=== PATIENT | female | born 1965 | race Caucasian/White ===

== ENCOUNTER → 2016-06-08 | Outpatient (CLI) | payer BC ==
--- NOTE | 2016-06-08 15:25 | BD ---
EXAMINATION TYPE: MG DEXA axial skeleton. DATE OF EXAM: 06/08/2016 7:50 AM COMPARISON: NONE CLINICAL HISTORY: Height: 5 FT 9 IN Weight: 386 FRAX RISK QUESTIONS: Alcohol (3 or more units per day): NO Family History (Parent hip fracture): NO Glucocorticoids (More than 3mos): NO (Ex: prednisone, prednisolone, methylprednisolone, dexamethasone, and hydrocortisone). History of Fracture in Adulthood: NO Secondary Osteoporosis: 1. Type 1 Diabetes: NO 2. Hyperthyroidism: NO 3. Menopause before 45: NO 4. Malnutrition: NO 5. Chronic liver disease: NO Rheumatoid Arthritis: NO Current Tobacco Use: NO RISK FACTORS HISTORY OF: Active: NO Postmenopausal woman: TOTAL HYST AGE 47 MEDICATIONS: Thyroid Medications: YES Which medication: LEVOTHYROXINE How Long: SINCE 1988 Additional Medications: LEVOTHYROXINE , HYZAR, BACLIFEN, NAPROXEN, Additional History: EXAM MEASUREMENTS: Bone mineral densitometry was performed using the Split System. Bone mineral density as measured about the Lumbar spine is: ----- L1-L4(G/cm2): 0.960 T Score Values are as follows: ----- L2: -1.3 ----- L3: -1.6 ----- L4: -2.7 ----- L1-L4: -1.8 Bone mineral density has: Decreased -13.5% since study of: 2013 The biliary L4 should be ordered as it is more than one standard deviation away from the adjacent marysol tebra. Bone mineral density about the R hip (g/cm2): 0.851 Bone mineral density about the L hip (g/cm2): 0.871 T Score values are as follows: -----R Neck: -1.3 -----L Neck: -1.2 -----R Intertrochanter: -0.9 -----L Intertrochanter: -2.1 Bone mineral density has: Decreased -17.1% since study of: 2013 IMPRESSION: Osteopenia (T Score between -1 and -2.5) as noted by T Score values at the There is a slight increased fracture risk and therapy is usually indicated based on age. Re-Screen 1-2 years. BOTH HIPS. NOTE: T-SCORE=SD OF THE YOUNG ADULT MEAN.
== END | disposition home or self-care (01) ==
LOC: RADBDWWP 07:49
PROVIDERS: ATTEND Family Medicine
DX: S23 Dislocation and sprain of joints and ligaments of thorax (principal); S29.011S Strain of muscle and tendon of front wall of thorax, sequela; N95.9 Unspecified menopausal and perimenopausal disorder; M85.851 Other specified disorders of bone density and structure, right thigh
CPT/HCPCS: 77080

== ENCOUNTER → 2016-09-02 | Outpatient (CLI) | payer BC ==
[2016-09-02 15:34] VITALS: BP 165/76; PULSE 91; TEMP 98.2; BMI 52.9
[2016-09-02 16:16] LABS: EKG EKG PERFORMED
[2016-09-02 16:53] LABS: CH 26.9; CHCM 30.7; HCT 41.3 % (34.0-46.0); HGB 12.7 gm/dL (11.4-16.0); Hypochromasia Moderate; MCHC 30.6 g/dL (31.0-37.0); MCV 88.2 fL (80.0-100.0); Mean Platelet Volume 6.6; RBC 4.69 m/uL (3.80-5.40); RDW 14.5 % (11.5-15.5); WBC 10.8 k/uL (3.8-10.6)
[2016-09-02 17:07] LABS: ALT 26 U/L (9-52); AST 18 U/L (14-36); Alkaline Phosphatase 91 U/L (38-126); Anion Gap 12 mmol/L; Blood Urea Nitrogen 32 mg/dL (7-17); Calcium 10.7 mg/dL (8.4-10.2); Carbon Dioxide 27 mmol/L (22-30); Chloride 103 mmol/L (98-107); Cholesterol 195 mg/dL (<200); Glucose 114 mg/dL (74-99); HDL Cholesterol 63 mg/dL (40-60); Iron 55 ug/dL (37-170); Non-African American GFR(MDRD) >60 (>60 ml/min/1.73 sqM); Potassium 5.1 mmol/L (3.5-5.1); Sodium 142 mmol/L (137-145); Total Bilirubin 0.8 mg/dL (0.2-1.3); Total Protein 8.3 g/dL (6.3-8.2); Triglycerides 94 mg/dL (<150)
[2016-09-02 17:16] LABS: % Iron Saturation 14.5 % (20-50); Total Iron Binding Capacity 379 ug/dL (265-497)
[2016-09-02 18:12] LABS: Vitamin B12 363 pg/mL (239-931)
[2016-09-02 18:29] LABS: Hemoglobin A1C 5.6 % (4.2-6.1)
--- NOTE | 2016-10-22 12:18 | P.PN ---
Progress Note - Text DATE OF SERVICE; 09/02/2016 CHIEF COMPLAINT: Initial bariatric assessment. HISTORY OF PRESENT ILLNESS: Michelle Larsen is a 51-year-old female who comes in for evaluation for sleeve gastrectomy. She has tried diet and exercise; however, has had difficulty with overall weight loss. She reports developing hip osteoarthritis secondary to her morbid obesity. Her highest weight is at present of 353 pounds. At her height of 5 feet 8-1/2 inches, her ideal body weight is 163 pounds. She is 190 pounds overweight. Body mass of 52.9. Goal weight is to get down to at least a size 16. She also reports obesity runs in her family. She reports chronic lower back pain including left hip pain as well. She does have friends who have also undergone weight loss procedures. She denies any stomach or esophageal cancer in herself or family. No reports of Crohn's disease or lupus and within her family. She does report allergy to strawberries as her throat gets numb. Denies any diarrhea or active severe heartburn. She denies any diabetes at present. She has been taking thyroid medications since the age of 28. As a result, her metabolism has been disrupted. She does have her gallbladder and denies any fatty food intolerance. She also reports a family history of pulmonary embolism where her mother had PE. Now she presents for further evaluation and management. PAST MEDICAL HISTORY. 1. Morbid obesity. 2. Hypothyroidism. 3. Osteoarthritis of the left hip. 4. Hypertension. 5. Neuropathy. 6. Vitamin D deficiency. 7. Seasonal allergies. PAST SURGICAL HISTORY: 1. Hysterectomy. 2. Tonsillectomy. 3. Sinus surgery. 4. Previous orthopedic procedures. MEDICATIONS: 1. Mirapex. 2. Naproxen. 3. Losartan/hydrochlorothiazide. 4. Synthroid. 5. Neurontin. 6. Vitamin D. 7. Zyrtec. 8. Aspirin. 9. Tylenol. ALLERGIES: AMOXICILLIN, ERYTHROMYCIN. SOCIAL HISTORY: Lifelong nontobacco user. She is . FAMILY HISTORY: Pertinent for a pulmonary embolus including morbid obesity. Also family history of thyroid disorders. REVIEW OF SYSTEMS: CONSTITUTIONAL: [place] body weight of 163 pounds. Present weight of 353 pounds. She is 190 pounds overweight. Body mass of 52.9. HEENT: No troubles with vision, hearing. Denies any dysphagia. ENDOCRINE: History of thyroid disorders. Personal history of diabetes. RESPIRATORY: Denies any pneumonia or dyspnea on exertion. CARDIOVASCULAR: History of hypertension. No reports of change pain, heart attack, palpitations. GASTROINTESTINAL: Denies any diarrhea or constipation. Denies any blood in the stools. MUSCULOSKELETAL: Has diffuse osteoarthritis, which includes the hips and lower back. NEURO: History of occasional neuropathy. HEMATOLOGIC: Denies any personal history of DVTs; however, her mother did have for DVT as well. PHYSICAL EXAM: VITAL SIGNS: 98.2, 91, 16, 155/76, 5 feet 8-1/2, 353 pounds. Body mass index of 52.9. GENERAL: Well-developed female in no acute distress. HEENT: No scleral icterus. Extraocular movements grossly intact. Moist mucosa. NECK: Supple without lymphadenopathy. CHEST: Nonlabored respirations. Equal bilateral excursions. CARDIOVASCULAR: Regular rate and rhythm. ABDOMEN: Protuberant, soft, nontender, nondistended. MUSCULOSKELETAL: No clubbing, cyanosis, 2+ bilateral pitting edema. NEURO: No focal lateralizing signs. Cranial nerves 2 through 12 grossly intact. PSYCH: Appropriate affect. Alert and oriented to person, place, and time. LABS: White count elevated at 10.8. MCHC low at 30.6. Evidence of moderate hyperchromasia. BUN elevated at 32. Glucose elevated at 114. Hemoglobin A1c of 5.7 within normal limits. Calcium elevated 10.7. Percent iron saturation low at 14.5. Total protein low 8.3. HDL elevated at 113. Total cholesterol normal at 195. HDL elevated at 63. Thyroid-stimulating hormone within normal limits. STUDIES: EKG demonstrates normal sinus rhythm. ASSESSMENT: 1. Morbid obesity due to excess calories. 2. Body mass index of 52.9. 3. Hypothyroidism. 4. Osteoarthritis of the left hip. 5. Osteoarthritis of the lower back. 6. Family history of morbid obesity. 7. Family history of thyroid disorders. 8. History of food allergies. 9. Family history of pulmonary embolism within her mother. 10. Hypertensive heart disease without cardiomyopathy. 11. Seasonal allergies. 12. Dietitian evaluation and counseling. PLAN: 1. She has obtained a bariatric metabolic panel with findings consistent with elevated calcium levels. Recommend repeat. 2. She also had mild leukocytosis of unclear etiology, which I also recommend further work-up. 3. She has completed an EKG without any moderate abnormalities. 4. Psych assessment per insurance guidelines. 5. Medical risk assessment per insurance guidelines. 6. Recommend prototype sewer evaluation and counseling including with food diary journal and follow up with the bariatric dietitian regarding gastrectomy-type diet. 7. As she is seeking particularly sleeve gastrectomy, risk of gastroesophageal reflux disease was also described in detail. She will proceed with upper endoscopy for further evaluation and management. 8. [place] bariatric surgery collaborative data including benefits and risks of the band, sleeve, Jose-en-Y gastric bypass were described. Discussion, including the balloon and duodenal switch were also discussed. 9. Recommend followup upon completion of her upper endoscopy including labs.
== END | disposition home or self-care (01) ==
LOC: BARWHC3 14:29
PROVIDERS: ATTEND Surgery Plastic and Reconstructive Surgery
DX: Z01.818 Encounter for other preprocedural examination (principal); E66.01 Morbid (severe) obesity due to excess calories; D50.9 Iron deficiency anemia, unspecified; E44.0 Moderate protein-calorie malnutrition; E55.9 Vitamin D deficiency, unspecified; I11.9 Hypertensive heart disease without heart failure; Z68.43 Body mass index [BMI] 50.0-59.9, adult
CPT/HCPCS: 36415; 80053; 80061; 82306; 82607; 82728; 82746; 83036; 83540; 83550; 84425; 84443; 85027; 93005; 99211

== ENCOUNTER 2016-09-11 08:54 | Day surgery (SDC) | payer BC ==
[2016-09-08 11:10] VITALS: BMI 58.2
--- NOTE | 2016-09-11 08:01 | P.GSHP ---
History of Present Illness H&P Date: 09/11/16 CHIEF COMPLAINT: GERD HISTORY OF PRESENT ILLNESS: The patient is a 51-year-old female who presents reports gastroesophageal reflux disease. Upper endoscopy was offered for further evaluation and management. PAST MEDICAL HISTORY: Please see list. PAST SURGICAL HISTORY: Please see list. MEDICATIONS: Please see list. ALLERGIES: Please see list. SOCIAL HISTORY: No illicit drug use FAMILY HISTORY: No reports of Crohn disease or ulcerative colitis. REVIEW OF ORGAN SYSTEMS: CONSTITUTIONAL: No reports of fevers or chills. GI: Denies any blood in stools or constipation. PHYSICAL EXAM: VITAL SIGNS: Stable GENERAL: Well-developed and pleasant in no acute distress. HEENT: No scleral icterus. Extraocular movements grossly intact. Moist buccal mucosa. NECK: Supple without lymphadenopathy. CHEST: Unlabored respirations. Equal bilateral excursions. CARDIOVASCULAR: Regular rate and rhythm. Distal 2+ pulses. ABDOMEN: Soft, nondistended. MUSCULOSKELETAL: No clubbing, cyanosis, or edema. ASSESSMENT: 1. Gastroesophageal reflux disease PLAN: 1. Recommend proceeding with an upper endoscopy Past Medical History Past Medical History: Hypertension, Osteoarthritis (OA), Thyroid Disorder History of Any Multi-Drug Resistant Organisms: None Reported Past Surgical History: Hysterectomy, Orthopedic Surgery, Tonsillectomy Additional Past Surgical History / Comment(s): sinus surgery, Past Anesthesia/Blood Transfusion Reactions: No Reported Reaction Past Psychological History: No Psychological Hx Reported Smoking Status: Never smoker Past Alcohol Use History: None Reported Past Drug Use History: None Reported - Past Family History Mother Family Medical History: No Reported History Medications and Allergies Home Medications Medication Instructions Recorded Confirmed Type Aspirin 81 mg PO DAILY 10/23/14 09/08/16 History Cetirizine HCl [Zyrtec] 10 mg PO DAILY 10/23/14 09/08/16 History Cholecalciferol [Vitamin D3] 2,000 unit PO DAILY@1200 10/23/14 09/08/16 History Levothyroxine Sodium [Synthroid] 137 mcg PO DAILY 10/23/14 09/08/16 History Losartan/Hydrochlorothiazide 100 mg PO DAILY 10/23/14 09/08/16 History [Losartan-Hctz 100-25 mg Tab] Acetaminophen [Tylenol] 1 tab PO BID 09/02/16 09/08/16 History Gabapentin [Neurontin] 1 cap PO HS 09/02/16 09/08/16 History Naproxen 1 tab PO BID 09/02/16 09/08/16 History Pramipexole [Mirapex] 1 tab PO HS 09/02/16 09/08/16 History Allergies Allergy/AdvReac Type Severity Reaction Status Date / Time amoxicillin Allergy Rash/Hives Verified 09/08/16 10:59 erythromycin base Allergy Rash/Hives Verified 09/08/16 10:59
[~2016-09-11 08:54] MED LIST: LACTATED RINGERS 1,000 ML IV SCH
[2016-09-11 09:13] VITALS: RESP 20; TEMP 97.9
[2016-09-11] MEDS ORDERED: LIDOCAINE 1% 20 ML VIAL (10MG/ML) FOR IV START INTRADERMA ONE (09:13)
[2016-09-11] MEDS ORDERED: LIDOCAINE 1% INJ 10MG/ML (20 ML MDV) ONE (09:23)
[2016-09-11] MEDS ORDERED: PROPOFOL 10 MG/ML 20 ML VIAL IV ONE (09:23)
--- NOTE | 2016-09-11 09:36 | P.PCN ---
Date of Procedure: 09/11/16 Preoperative Diagnosis: Postoperative Diagnosis: Procedure(s) Performed: Implants: Indications for Procedure: Operative Findings: Description of Procedure: PREOPERATIVE DIAGNOSIS: Gastroesophageal reflux disease. Morbid obesity. POSTOPERATIVE DIAGNOSIS: Morbid obesity. Gastritis. Gastroesophageal reflux disease. Diaphragmatic hiatal hernia without obstruction. Bile reflux. OPERATION: Esophagogastroduodenoscopy with biopsies along antrum. SURGEON: Stephany Ornelas MD ANESTHESIA: MAC. INDICATIONS: The patient is a 51-year-old female who presents with a history of reflux disease. Benefits and risks of the procedure were described. Informed consent was obtained. DESCRIPTION: The patient was brought into the endoscopy suite and laid in the left lateral decubitus position. An Olympus gastroscope was passed along the posterior oropharynx down to the distal esophagus where the squamocolumnar junction was encountered at 36 cm from the incisors. The stomach was entered and moderate bile reflux was found. Additional findings are listed below. Biopsies with cold forceps were obtained of the antrum. The first through third portion of the duodenum was examined and unremarkable. Retroflexion of the scope confirmed Hill grade 4 lower esophageal valve. The squamocolumnar junction demostrated chronic LA grade B erosive esophagitis. The stomach was desufflated. The patient tolerated the procedure well. FINDINGS: Squamocolumnar junction 36 cm from the incisors. Diaphragmatic hiatus at 38 cm. Hiatal hernia 2 cm, sliding type Hill grade 4 lower esophageal valve. LA grade A erosive esophagitis. No active duodenitis. Gastritis, superficial acute. RECOMMENDATIONS: Further recommendations pending results of pathology report. Upper endoscopy as needed. Plan - Discharge Summary Discharge Medication List Aspirin 81 mg PO DAILY 10/23/14 [History] Cetirizine HCl [Zyrtec] 10 mg PO DAILY 10/23/14 [History] Cholecalciferol [Vitamin D3] 2,000 unit PO DAILY@1200 10/23/14 [History] Levothyroxine Sodium [Synthroid] 137 mcg PO DAILY 10/23/14 [History] Losartan/Hydrochlorothiazide [Losartan-Hctz 100-25 mg Tab] 100 mg PO DAILY 10/23 [History] Acetaminophen [Tylenol] 1 tab PO BID 09/02/16 [History] Gabapentin [Neurontin] 1 cap PO HS 09/02/16 [History] Naproxen 1 tab PO BID 09/02/16 [History] Pramipexole [Mirapex] 1 tab PO HS 09/02/16 [History] Follow up Appointment(s)/Referral(s): Stephany Ornelas MD [STAFF PHYSICIAN] - 09/23/16 ([facility]) Patient Instructions/Handouts: Hiatal Hernia (GEN), Gastritis (DC) Discharge Disposition: HOME SELF-CARE
[2016-09-11 10:02] VITALS: BP 128/71; PULSE 76
== END 2016-09-11 10:34 | disposition home or self-care (01) ==
LOC: ORWHC2ENDO 08:54
PROVIDERS: ATTEND Surgery Plastic and Reconstructive Surgery
DX: K29.50 Unspecified chronic gastritis without bleeding (principal); K44.9 Diaphragmatic hernia without obstruction or gangrene; K22.10 Ulcer of esophagus without bleeding; E66.01 Morbid (severe) obesity due to excess calories; Z68.43 Body mass index [BMI] 50.0-59.9, adult; I10 Essential (primary) hypertension; M19.90 Unspecified osteoarthritis, unspecified site; E07.9 Disorder of thyroid, unspecified; Z79.82 Long term (current) use of aspirin; Z79.899 Other long term (current) drug therapy; Z88.1 Allergy status to other antibiotic agents; Z88.0 Allergy status to penicillin
CPT/HCPCS: 88305; 88342; 43239; J2001; J2704

== ENCOUNTER → 2016-09-24 | Outpatient (CLI) | payer BC ==
[2016-09-24 11:53] VITALS: BP 143/77; PULSE 89; RESP 14; TEMP 97.7; BMI 54.2
--- NOTE | 2016-10-24 19:25 | P.PN ---
Progress Note - Text DATE OF SERVICE: 09/24/2016 CHIEF COMPLAINT: Bariatric assessment. HISTORY OF PRESENT ILLNESS: Michelle Larsen is a 51-year-old female who initially presented to the bariatric center 3 weeks ago for sleeve gastrectomy. She has tried diet and exercise; however, has had difficulty with overall weight loss. Her highest weight is at present of 363 pounds. At her height of 5 feet 8-1/2 inches, her ideal body weight is 163 pounds. She is 200 pounds overweight. Body mass of 54.5. She reports chronic lower back pain including left hip pain as well. She completed an upper endoscopy with finding of a hiatal hernia. She also completed her sleep study. Now she presents for further evaluation and management. PAST MEDICAL HISTORY. 1. Morbid obesity. 2. Hypothyroidism. 3. Osteoarthritis of the left hip. 4. Hypertension. 5. Neuropathy. 6. Vitamin D deficiency. 7. Seasonal allergies. 8. Gastroesophageal reflux disease. PAST SURGICAL HISTORY: 1. Hysterectomy. 2. Tonsillectomy. 3. Sinus surgery. 4. Previous orthopedic procedures. 5. Upper endoscopy. MEDICATIONS: 1. Mirapex. 2. Naproxen. 3. Losartan/hydrochlorothiazide. 4. Synthroid. 5. Neurontin. 6. Vitamin D. 7. Zyrtec. 8. Aspirin. 9. Tylenol. ALLERGIES: AMOXICILLIN, ERYTHROMYCIN. SOCIAL HISTORY: Lifelong nontobacco user. She is . FAMILY HISTORY: Pertinent for a pulmonary embolus including morbid obesity. Also family history of thyroid disorders. REVIEW OF SYSTEMS: CONSTITUTIONAL: [place] body weight of 163 pounds. Present weight of 363 pounds. She is 200 pounds overweight. Body mass of 54.5 HEENT: No troubles with vision, hearing. Denies any dysphagia. ENDOCRINE: History of thyroid disorders. Personal history of diabetes. RESPIRATORY: Denies any pneumonia or dyspnea on exertion. CARDIOVASCULAR: History of hypertension. No reports of change pain, heart attack, palpitations. GASTROINTESTINAL: Denies any diarrhea or constipation. Denies any blood in the stools. Has hiatal hernia including gastroesophageal reflux disease. MUSCULOSKELETAL: Has diffuse osteoarthritis, which includes the hips and lower back. NEURO: History of occasional neuropathy. HEMATOLOGIC: Denies any personal history of DVTs; however, her mother did have for DVT as well. PHYSICAL EXAM: VITAL SIGNS: 5 feet 8-1/2, 363 pounds. Body mass index of 54.5. Vital Signs Temp 97.7 F 09/24/16 11:38 Pulse 89 09/24/16 11:38 Resp 14 09/24/16 11:38 BP 143/77 09/24/16 11:38 Pulse Ox GENERAL: Well-developed female in no acute distress. HEENT: No scleral icterus. Extraocular movements grossly intact. Moist mucosa. NECK: Supple without lymphadenopathy. CHEST: Nonlabored respirations. Equal bilateral excursions. CARDIOVASCULAR: Regular rate and rhythm. ABDOMEN: Protuberant, soft, nontender, nondistended. MUSCULOSKELETAL: No clubbing, cyanosis, 2+ bilateral pitting edema. NEURO: No focal lateralizing signs. Cranial nerves 2 through 12 grossly intact. PSYCH: Appropriate affect. Alert and oriented to person, place, and time. LABS: White count elevated at 10.8. MCHC low at 30.6. Evidence of moderate hyperchromasia. BUN elevated at 32. Glucose elevated at 114. Hemoglobin A1c of 5.7 within normal limits. Calcium elevated 10.7. Percent iron saturation low at 14.5. Total protein low 8.3. HDL elevated at 113. Total cholesterol normal at 195. HDL elevated at 63. Thyroid-stimulating hormone within normal limits. STUDIES: EKG demonstrates normal sinus rhythm. Upper endoscopy findings: Hiatal hernia 2 cm, sliding type Hill grade 4 lower esophageal valve. LA grade A erosive esophagitis. ASSESSMENT: 1. Morbid obesity due to excess calories. 2. Body mass index of 54.5. 3. Hypothyroidism. 4. Osteoarthritis of the left hip. 5. Osteoarthritis of the lower back. 6. Family history of morbid obesity. 7. Family history of thyroid disorders. 8. History of food allergies. 9. Family history of pulmonary embolism within her mother. 10. Hypertensive heart disease without cardiomyopathy. 11. Seasonal allergies. 12. Dietitian evaluation and counseling. 13. Hiatal hernia. 14. Gastroesophageal reflux disease. 15. Elevated calcium. PLAN: 1. All of her labs were reviewed in detail including findings of elevated calcium level. 2. Recommend evaluation a PTH level for parathyroid adenoma. 3. With a history of hypertension including abnormal EKG, recommend referral to cardiology. 4. With finding of upper endoscopy with hiatal hernia, may need hiatal hernia at the time of her procedure. 5. Recommend treatment for obstructive sleep apnea. 6. Benefits and risks of surgical intervention for sleeve gastrectomy were described including potential worsening dysphagia or reflux disease. 7. [place] bariatric surgery collaborative data including benefits and risks of the band, sleeve, Jose-en-Y gastric bypass were described. 8. Recommend followup upon completion of her bariatric profile.
== END | disposition home or self-care (01) ==
LOC: BARWHC3 10:34
PROVIDERS: ATTEND Surgery Plastic and Reconstructive Surgery
DX: E21.1 Secondary hyperparathyroidism, not elsewhere classified (principal); I10 Essential (primary) hypertension; R06.83 Snoring; R53.83 Other fatigue; Z72.820 Sleep deprivation
CPT/HCPCS: 36415; 83970; 99211

== ENCOUNTER → 2016-11-04 | Outpatient (CLI) | payer BC ==
[2016-11-04 15:18] VITALS: BP 152/72; PULSE 99; TEMP 98.2
--- NOTE | 2016-12-05 11:09 | P.PN ---
Progress Note - Text DATE OF SERVICE: 11/04/2016 CHIEF COMPLAINT: Bariatric assessment. HISTORY OF PRESENT ILLNESS: Michelle Larsen is a 51-year-old female who initially presented to the bariatric center in August 2016 now 2 months ago. She is looking into a sleeve gastrectomy. In the last 2 months, she has gained an additional 21 pounds. She is still pending a sleep study for sleep apnea. She reports requiring weight loss to undergo orthopedics procedure for severe osteoarthritis. She's ambulating with a cane. Her highest weight is now 384 pounds. At her height of 5 feet 8-1/2 inches, her ideal body weight is 163 pounds. She is 221 pounds overweight. Her body mass index is now elevated to 57.7. She reports chronic lower back pain including left hip pain as well. PAST MEDICAL HISTORY. 1. Morbid obesity. 2. Hypothyroidism. 3. Osteoarthritis of the left hip. 4. Hypertension. 5. Neuropathy. 6. Vitamin D deficiency. 7. Seasonal allergies. 8. Gastroesophageal reflux disease. 9. Obstructive sleep apnea. PAST SURGICAL HISTORY: 1. Hysterectomy. 2. Tonsillectomy. 3. Sinus surgery. 4. Previous orthopedic procedures. 5. Upper endoscopy. 6. Sleep study. MEDICATIONS: 1. Mirapex. 2. Naproxen. 3. Losartan/hydrochlorothiazide. 4. Synthroid. 5. Neurontin. 6. Vitamin D. 7. Zyrtec. 8. Aspirin. 9. Tylenol. ALLERGIES: AMOXICILLIN, ERYTHROMYCIN. SOCIAL HISTORY: Lifelong nontobacco user. She is . FAMILY HISTORY: Pertinent for a pulmonary embolus including morbid obesity. Also family history of thyroid disorders. REVIEW OF SYSTEMS: CONSTITUTIONAL: Her highest weight is now 384 pounds. At her height of 5 feet 8-1/2 inches, her ideal body weight is 163 pounds. She is 221 pounds overweight. Her body mass index is now elevated to 57.7. HEENT: No troubles with vision, hearing. Denies any dysphagia. ENDOCRINE: History of thyroid disorders. Personal history of diabetes. RESPIRATORY: Denies any pneumonia or dyspnea on exertion. CARDIOVASCULAR: History of hypertension. No reports of change pain, heart attack, palpitations. GASTROINTESTINAL: Denies any diarrhea or constipation. Denies any blood in the stools. Has hiatal hernia including gastroesophageal reflux disease. MUSCULOSKELETAL: Has diffuse osteoarthritis, which includes the hips and lower back. NEURO: History of occasional neuropathy. HEMATOLOGIC: Denies any personal history of DVTs; however, her mother did have for DVT as well. SKIN: No reports of active skin rash or active skin cancer. PHYSICAL EXAM: VITAL SIGNS: 5 feet 8-1/2, 384 pounds. Body mass index of 57.7 Vital Signs Temp 98.2 F 11/04/16 15:16 Pulse 99 11/04/16 15:16 Resp BP 152/72 11/04/16 15:16 Pulse Ox GENERAL: Well-developed female in no acute distress. HEENT: No scleral icterus. Extraocular movements grossly intact. Moist mucosa. NECK: Supple without lymphadenopathy. CHEST: Nonlabored respirations. Equal bilateral excursions. CARDIOVASCULAR: Regular rate and rhythm. ABDOMEN: Protuberant, soft, nontender, nondistended. MUSCULOSKELETAL: No clubbing, cyanosis, 2+ bilateral pitting edema. NEURO: No focal lateralizing signs. Cranial nerves 2 through 12 grossly intact. PSYCH: Appropriate affect. Alert and oriented to person, place, and time. SKIN: Well perfused. Good skin turgor. LABS: White count elevated at 10.8. MCHC low at 30.6. Evidence of moderate hyperchromasia. BUN elevated at 32. Glucose elevated at 114. Hemoglobin A1c of 5.7 within normal limits. Calcium elevated 10.7. Percent iron saturation low at 14.5. Total protein low 8.3. HDL elevated at 113. Total cholesterol normal at 195. HDL elevated at 63. Thyroid-stimulating hormone within normal limits. STUDIES: EKG demonstrates normal sinus rhythm. Upper endoscopy findings: Hiatal hernia 2 cm, sliding type Hill grade 4 lower esophageal valve. LA grade A erosive esophagitis. ASSESSMENT: 1. Morbid obesity due to excess calories. 2. Body mass index of 57.7. 3. Hypothyroidism. 4. Osteoarthritis of the left hip. 5. Osteoarthritis of the lower back. 6. Family history of morbid obesity. 7. Family history of thyroid disorders. 8. History of food allergies. 9. Family history of pulmonary embolism within her mother. 10. Hypertensive heart disease without cardiomyopathy. 11. Seasonal allergies. 12. Dietitian evaluation and counseling. 13. Hiatal hernia. 14. Gastroesophageal reflux disease. 15. Elevated calcium. PLAN: 1. Recommend repeat calcium level. 2. She is still pending a sleep study. 3. She is still evaluating for sleeve gastrectomy. Benefits and risks of sleeve gastrectomy including leaks, bleeding, increase gastroesophageal reflux disease were described. Lifelong antacid treatment was also reviewed. 4. Will need at least tonight stay in the hospital. 5. DVT prophylaxis. 6. Antibiotic prophylaxis. 7. An 8 page bariatric second-generation consent form was reviewed in detail including potential for nutritional deficiencies. All questions were addressed and answered.
== END ==
LOC: BARWHC3 13:49
PROVIDERS: ATTEND Surgery Plastic and Reconstructive Surgery
DX: Z48.815 Encounter for surgical aftercare following surgery on the digestive system (principal); E03.9 Hypothyroidism, unspecified; M17.12 Unilateral primary osteoarthritis, left knee; M47.816 Spondylosis without myelopathy or radiculopathy, lumbar region; I10 Essential (primary) hypertension; E55.9 Vitamin D deficiency, unspecified; J30.2 Other seasonal allergic rhinitis; E66.01 Morbid (severe) obesity due to excess calories; Z68.43 Body mass index [BMI] 50.0-59.9, adult; Z98.84 Bariatric surgery status
CPT/HCPCS: 99211

== ENCOUNTER → 2016-11-12 | Outpatient (CLI) | payer BC ==
--- NOTE | 2016-11-12 22:17 | CONS ---
DATE OF CONSULTATION: 11/12/2016 This patient is a 51-year-old lady who has been evaluated in the sleep center for obstructive sleep apnea/hypopnea syndrome as a part of preparation for bariatric surgery. HISTORY OF PRESENT ILLNESS/SLEEP-WAKE EVALUATION: Patient's usual sleep schedule is from 11 p.m. to 7 a.m. on weekdays and from 11 p.m. to 9 a.m. on weekends. No problems with falling asleep. She has a TV set in the bedroom. She snores, wakes up from sleep 5 times with up to 4 episodes of nocturia. She has hip pain during sleep. No significant symptoms of excessive daytime sleepiness. [place] Sleepiness Scale is 2. Positive history of jerking movements of her left hip. PAST MEDICAL HISTORY: 1. Hypertension. 2. Allergies. 3. Hypothyroidism. 4. Back pain. 5. Left hip arthritis. PAST SURGICAL HISTORY: 1. Total hysterectomy. 2. Tonsillectomy. MEDICATIONS: 1. Levothyroxine. 2. Hyzaar. 3. Amlodipine. 4. Zyrtec. 5. Vitamin D. 6. Baclofen. 7. Tylenol. 8. Gabapentin. 9. Pramipexole. SOCIAL HISTORY: Negative for smoking or using alcohol. FAMILY HISTORY: Hypertension, arthritis, cancer, thyroid problems. During physical exam, 51-year-old lady without distress. BP 165/86, HR 106, RR 16. Height 5 feet 9 inches. Weight 380.4. BMI 51.6. Neck 16 inches in circumference. Temperature 97.9. Oxygen saturation at room air 97%. GENERAL: A pleasant patient without distress. HEENT: PERRLA. EOMI. Evaluation of oropharynx showed tongue protrudes midline. Extremely low position of soft palate. Mallampati IV. NECK: Supple. No JVD. Thyroid is not palpable. LUNGS: Clear to percussion and to auscultation. Good air exchange. No wheezing or rhonchi. HEART: S1, S2 regular. No murmurs, gallops or rubs. ABDOMEN: Obese. EXTREMITIES: Obese. CSR RETAIL: Awake, alert and oriented x3. No focal deficits observed. Patient has difficulty walking secondary to hip arthritis. IMPRESSION: 1. Snoring, multiple awakenings from sleep, extremely low position of soft palate, wide neck; obstructive sleep apnea/hypopnea syndrome. 2. Morbid obesity; body mass index 51.6. 3. Hypertension. 4. Allergies. 5. Hypothyroidism. 6. Back pain. 7. Left hip arthritis. 8. History of periodic limb movements. 9. Status post total hysterectomy. 10. Status post tonsillectomy. PLAN: 1. Polysomnography for evaluation of patients breathing during sleep. 2. CPAP/BiPAP titration if sleep study confirms obstructive sleep apnea/ hypopnea syndrome. 3. Preferable position during sleep on the side. 4. No driving if feeling any sleepiness. Patient is aware of civil and criminal liability for unsafe driving. 5. Losing weight program. 6. I will see this patient for follow-up visit to explain results of the testing and follow-up plan. Thank you very much for referring this patient for consultation. Sincerely, Alden Rubio. , PhD, FAASM. Diplomat of [employer], Sleep Medicine Board by [employer] Appeals Board Referee of [facility] [place] [facility]
== END | disposition home or self-care (01) ==
LOC: SLEEP 14:03
PROVIDERS: ATTEND Internal Medicine
DX: G47.33 Obstructive sleep apnea (adult) (pediatric) (principal); M13.852 Other specified arthritis, left hip; I10 Essential (primary) hypertension; E03.9 Hypothyroidism, unspecified; M54.9 Dorsalgia, unspecified; E66.01 Morbid (severe) obesity due to excess calories; T78.40XA Allergy, unspecified, initial encounter; Z98.890 Other specified postprocedural states
CPT/HCPCS: 99211

== ENCOUNTER → 2016-11-16 | Outpatient (CLI) | payer BC ==
[2016-11-16 13:19] VITALS: BMI 56.4
== END | disposition home or self-care (01) ==
LOC: BARWHC3 08:48
PROVIDERS: ATTEND Surgery Plastic and Reconstructive Surgery
DX: E66.01 Morbid (severe) obesity due to excess calories (principal); Z71.3 Dietary counseling and surveillance; Z68.43 Body mass index [BMI] 50.0-59.9, adult
CPT/HCPCS: 97804

== ENCOUNTER → 2016-12-26 | Outpatient (CLI) | payer BC ==
[2016-12-26 13:35] LABS: Basophils # (A) 0.1 k/uL (0-0.2); Basophils % (A) 1 %; CH 27.5; CHCM 31.9; Eosinophils # (A) 0.3 k/uL (0-0.7); Eosinophils % (A) 3 %; HCT 40.6 % (34.0-46.0); HDW 2.69; HGB 12.9 gm/dL (11.4-16.0); Luc # (Auto) 0.19; Luc % (Auto) 2; Lymphocytes # (A) 1.8 k/uL (1.0-4.8); Lymphocytes % (A) 21 %; MCH 27.5 pg (25.0-35.0); MCHC 31.8 g/dL (31.0-37.0); MCV 86.5 fL (80.0-100.0); Mean Platelet Volume 8.9; Monocytes # (A) 0.4 k/uL (0-1.0); Monocytes % (A) 4 %; Neutrophils # (A) 5.8 k/uL (1.3-7.7); Neutrophils % (A) 68 %; RDW 15.4 % (11.5-15.5); WBC 8.5 k/uL (3.8-10.6); WBC (Perox) 8.48
[2016-12-26 14:00] LABS: ALT 37 U/L (9-52); AST 24 U/L (14-36); Alkaline Phosphatase 91 U/L (38-126); Anion Gap 12 mmol/L; Blood Urea Nitrogen 27 mg/dL (7-17); Calcium 10.7 mg/dL (8.4-10.2); Carbon Dioxide 27 mmol/L (22-30); Chloride 103 mmol/L (98-107); Glucose 109 mg/dL (74-99); Non-African American GFR(MDRD) >60 (>60 ml/min/1.73 sqM); Potassium 5.3 mmol/L (3.5-5.1); Sodium 142 mmol/L (137-145); Total Bilirubin 0.7 mg/dL (0.2-1.3); Total Protein 8.6 g/dL (6.3-8.2)
== END ==
LOC: LABWHC1 12:36
PROVIDERS: ATTEND Surgery Plastic and Reconstructive Surgery
DX: Z01.812 Encounter for preprocedural laboratory examination (principal); I10 Essential (primary) hypertension
CPT/HCPCS: 80053; 85025

== ENCOUNTER 2017-01-11 08:24 | Inpatient (IN) | payer BC ==
--- NOTE | 2017-01-10 22:00 | P.GSHP ---
History of Present Illness H&P Date: 01/11/17 CHIEF COMPLAINT: Morbid obesity. HISTORY OF PRESENT ILLNESS: Michelle Larsen is a 51-year-old female who initially presented to the bariatric center in August 2016. She is looking into a sleeve gastrectomy. She reports requiring weight loss to undergo orthopedics procedure for severe osteoarthritis. She's ambulating with a cane. Her highest weight is 384 pounds. At her height of 5 feet 8-1/2 inches, her ideal body weight is 163 pounds. She is 221 pounds overweight. Her body mass index was 57.7. She reports chronic lower back pain including left hip pain as well. PAST MEDICAL HISTORY. 1. Morbid obesity. 2. Hypothyroidism. 3. Osteoarthritis of the left hip. 4. Hypertension. 5. Neuropathy. 6. Vitamin D deficiency. 7. Seasonal allergies. 8. Gastroesophageal reflux disease. 9. Obstructive sleep apnea. PAST SURGICAL HISTORY: 1. Hysterectomy. 2. Tonsillectomy. 3. Sinus surgery. 4. Previous orthopedic procedures. 5. Upper endoscopy. 6. Sleep study. MEDICATIONS: 1. Mirapex. 2. Naproxen. 3. Losartan/hydrochlorothiazide. 4. Synthroid. 5. Neurontin. 6. Vitamin D. 7. Zyrtec. 8. Aspirin. 9. Tylenol. ALLERGIES: AMOXICILLIN, ERYTHROMYCIN. SOCIAL HISTORY: Lifelong nontobacco user. She is . FAMILY HISTORY: Pertinent for a pulmonary embolus including morbid obesity. Also family history of thyroid disorders. REVIEW OF SYSTEMS: CONSTITUTIONAL: Her highest weight is now 384 pounds. At her height of 5 feet 8-1/2 inches, her ideal body weight is 163 pounds. She is 221 pounds overweight. Her body mass index is now elevated to 57.7. HEENT: No troubles with vision, hearing. Denies any dysphagia. ENDOCRINE: History of thyroid disorders. Personal history of diabetes. RESPIRATORY: Denies any pneumonia or dyspnea on exertion. CARDIOVASCULAR: History of hypertension. No reports of change pain, heart attack, palpitations. GASTROINTESTINAL: Denies any diarrhea or constipation. Denies any blood in the stools. Has hiatal hernia including gastroesophageal reflux disease. MUSCULOSKELETAL: Has diffuse osteoarthritis, which includes the hips and lower back. NEURO: History of occasional neuropathy. HEMATOLOGIC: Denies any personal history of DVTs; however, her mother did have for DVT as well. SKIN: No reports of active skin rash or active skin cancer. PHYSICAL EXAM: VITAL SIGNS: 5 feet 8-1/2, 384 pounds. Body mass index of 57.7 GENERAL: Well-developed female in no acute distress. HEENT: No scleral icterus. Extraocular movements grossly intact. Moist mucosa. NECK: Supple without lymphadenopathy. CHEST: Nonlabored respirations. Equal bilateral excursions. CARDIOVASCULAR: Regular rate and rhythm. ABDOMEN: Protuberant, soft, nontender, nondistended. MUSCULOSKELETAL: No clubbing, cyanosis, 2+ bilateral pitting edema. NEURO: No focal lateralizing signs. Cranial nerves 2 through 12 grossly intact. PSYCH: Appropriate affect. Alert and oriented to person, place, and time. SKIN: Well perfused. Good skin turgor. STUDIES: EKG demonstrates normal sinus rhythm. ASSESSMENT: 1. Morbid obesity due to excess calories. 2. Body mass index of 57.7. 3. Hypothyroidism. 4. Osteoarthritis of the left hip. 5. Osteoarthritis of the lower back. 6. Family history of morbid obesity. 7. Family history of thyroid disorders. 8. History of food allergies. 9. Family history of pulmonary embolism within her mother. 10. Hypertensive heart disease without cardiomyopathy. 11. Seasonal allergies. 12. Dietitian evaluation and counseling. 13. Hiatal hernia. 14. Gastroesophageal reflux disease. 15. Elevated calcium. PLAN: 1. She is evaluating for sleeve gastrectomy. Benefits and risks of sleeve gastrectomy including leaks, bleeding, increase gastroesophageal reflux disease were described. Lifelong antacid treatment was also reviewed. 2. Will need at least tonight stay in the hospital. 3. DVT prophylaxis. 4. Antibiotic prophylaxis. 5. An 8 page bariatric second-generation consent form was reviewed in detail including potential for nutritional deficiencies. 6. All questions were addressed and answered. 7. Robotic-assisted approach advised given patient's body habitus. Past Medical History Past Medical History: Asthma, Hypertension, Osteoarthritis (OA), Sleep Apnea/ CPAP/BIPAP, Thyroid Disorder Additional Past Medical History / Comment(s): varicose veins, allergy induced asthma(seasonal), History of Any Multi-Drug Resistant Organisms: None Reported Past Surgical History: Hysterectomy, Orthopedic Surgery Additional Past Surgical History / Comment(s): sinus surgery, bone spur removed from left foot, colonoscopy Past Anesthesia/Blood Transfusion Reactions: No Reported Reaction Smoking Status: Never smoker - Past Family History Mother Family Medical History: No Reported History Father Family Medical History: Cancer, Pulmonary Embolus Sister(s) Family Medical History: Cancer Medications and Allergies Home Medications Medication Instructions Recorded Confirmed Type Aspirin 81 mg PO DAILY 10/23/14 01/06/17 History Cetirizine HCl [Zyrtec] 10 mg PO HS 10/23/14 01/06/17 History Cholecalciferol [Vitamin D3] 5,000 unit PO DAILY 10/23/14 01/06/17 History Acetaminophen [Tylenol] 500 mg PO Q6HR PRN 09/02/16 01/06/17 History Gabapentin [Neurontin] 100 mg PO HS 09/02/16 01/06/17 History Naproxen 500 mg PO BID 09/02/16 01/06/17 History Pramipexole [Mirapex] 0.5 mg PO HS 09/02/16 01/06/17 History Baclofen [Lioresal] 20 mg PO HS 11/16/16 01/06/17 History amLODIPine [Norvasc] 2.5 mg PO DAILY 11/16/16 01/06/17 History Glucosamine/Chondr Zimmer A Sod [Osteo 1 each PO DAILY 01/06/17 01/06/17 History Bi-Flex Caplet] Levothyroxine Sodium 150 mcg PO DAILY 01/06/17 01/06/17 History Losartan/Hydrochlorothiazide 1 each PO DAILY 01/06/17 01/06/17 History [Hyzaar 100-25 Tablet] Allergies Allergy/AdvReac Type Severity Reaction Status Date / Time amoxicillin Allergy Rash/Hives Verified 01/06/17 13:27 erythromycin base Allergy Rash/Hives Verified 01/06/17 13:27 morphine Allergy Nausea & Verified 01/06/17 13:28 Vomiting Morpholine Analogues Allergy Nausea & Verified 01/06/17 13:28 Vomiting
--- NOTE | 2017-01-11 07:43 | P.HPADDEND ---
H&P Addendum H&P Addendum Date: 01/11/17 Patient presents with super morbid obesity BMI over 50, given patient's body habitus robotic-assisted approach advised.
[~2017-01-11 08:24] MED LIST changes: +ACETAMINOPHEN IV (For NPO) 1,000 MG in EMPTY BAG 1 BAG IVPB ONE; +CHLORHEXIDINE GLUCONATE 15 ML CUP MUCOUS MEM ONE; +DEXAMETHASONE SOD PHOSPHATE 10 MG/ML 1 ML VIAL IV ONE; +HYDROmorphone 1 MG/ML 1 ML SYRINGE IVP PRN; +ONDANSETRON 4 MG/2 ML VIAL IVP ONE; +PANTOPRAZOLE 40 MG/10 ML VIAL IV STA; +SCOPOLAMINE 1.5MG/72HR PATCH TRANSDERM STA; +ceFAZolin 3 GM in SODIUM CHLORIDE 0.9% 100 ML IVPB ONE
[2017-01-11] MEDS: ENOXAPARIN 40 MG/0.4 ML SYRINGE SQ STA ×2 (09:22→09:46)
[2017-01-11 10:07] LABS: Magnesium 1.7 mg/dL (1.6-2.3); Potassium 4.1 mmol/L (3.5-5.1)
[2017-01-11] MEDS ORDERED: NEOSTIGMINE 1 MG/ML 10 ML VIAL ONE (10:20)
[2017-01-11] MEDS ORDERED: HYDROmorphone (PF) 1 MG/ML ONE (10:20)
[2017-01-11] MEDS ORDERED: LIDOCAINE 1% INJ 10MG/ML (20 ML MDV) ONE (10:20)
[2017-01-11] MEDS ORDERED: MIDAZOLAM 2 MG/2 ML VIAL ONE (10:20)
[2017-01-11] MEDS ORDERED: GLYCOPYRROLATE 0.2 MG/ML 2 ML VIAL ONE (10:20)
[2017-01-11] MEDS ORDERED: PROPOFOL 10 MG/ML 20 ML VIAL IV ONE (10:20)
[2017-01-11] MEDS ORDERED: fentaNYL (PF) 50 MCG/ML 2 ML AMP ONE (10:20)
[2017-01-11] MEDS ORDERED: SUCCINYLCHOLINE CHLORIDE 100 MG/5 ML SYR IV ONE (10:20)
[2017-01-11] MEDS ORDERED: KETOROLAC 30 MG/ML 1 ML VIAL ONE (10:20)
[2017-01-11] MEDS ORDERED: ROCURONIUM BROMIDE 10 MG/ML 10 ML VIAL IV ONE (10:20)
[2017-01-11] MEDS ORDERED: BUPIVACAINE (PF) 0.5% 30 ML VIAL SQ ONE (11:11)
[2017-01-11] MEDS ORDERED: LACTATED RINGERS 1,000 ML IV ONE (13:27)
[2017-01-11] MEDS ORDERED: NALOXONE 0.4 MG/ML 1 ML VIAL IV PRN (13:53)
[2017-01-11] MEDS ORDERED: diphenhydrAMINE 50 MG/ML 1 ML VIAL IVP PRN (13:53)
[2017-01-11] MEDS ORDERED: ONDANSETRON 4 MG/2 ML VIAL IVP PRN (13:53)
[2017-01-11] MEDS ORDERED: fentaNYL PCA 300 MCG/30 ML SYRINGE IV PRN (13:56)
--- NOTE | 2017-01-11 14:16 | P.OP ---
Date of Procedure: 01/11/17 Description of Procedure: SURGEON: SPARKLE DUMONT MD PROFESSIONAL BONDSMAN: BALJINDER RUFFIN PREOPERATIVE DIAGNOSES: 1. Morbid obesity due to excess calories. 2. Body mass index of 57.7. 3. Hypothyroidism. 4. Osteoarthritis of the left hip. 5. Osteoarthritis of the lower back. 6. Family history of morbid obesity. 7. Family history of thyroid disorders. 8. History of food allergies. 9. Family history of pulmonary embolism within her mother. 10. Hypertensive heart disease without cardiomyopathy. 11. Seasonal allergies. 12. Gastroesophageal reflux disease. 13. Obstructive sleep apnea. POSTOPERATIVE DIAGNOSES: 1. Morbid obesity due to excess calories. 2. Body mass index of 57.7. 3. Hypothyroidism. 4. Osteoarthritis of the left hip. 5. Osteoarthritis of the lower back. 6. Family history of morbid obesity. 7. Family history of thyroid disorders. 8. History of food allergies. 9. Family history of pulmonary embolism within her mother. 10. Hypertensive heart disease without cardiomyopathy. 11. Seasonal allergies. 12. Gastroesophageal reflux disease. 13. Obstructive sleep apnea. 14. Incarcerated incisional ventral hernia 11 cm involving transverse colon, right upper quadrant. 15. Hepatomegaly with fatty liver disease. OPERATION: 1. Laparoscopic reduction of incarcerated right upper quadrant incisional ventral hernia 11-cm involving mid transverse colon. 2. Robotic assisted laparoscopic sleeve gastrectomy with 40-Croatian bougie, multiport. 3. Intraoperative esophagogastrojejunoscopy. ANESTHESIA: Gen. local anesthetic ESTIMATED BLOOD LOSS: 20 mL SPECIMENS REMOVED: Sleeve gastrectomy COMPLICATIONS: None. INDICATIONS: Michelle aLrsen is a 51-year-old female who initially presented to the bariatric center in August 2016. She is looking into a sleeve gastrectomy. She reports requiring weight loss to undergo orthopedics procedure for severe osteoarthritis. She's ambulating with a cane. Her highest weight is 384 pounds. At her height of 5 feet 8-1/2 inches, her ideal body weight is 163 pounds. She is 221 pounds overweight. Her body mass index was 57.7. She reports chronic lower back pain including left hip pain as well. Today she comes in with a 9 pound weight loss down to 375 pounds. All surgical options for morbid obesity had been described using the [place] bariatric surgery collaborative comorbidity resolution including complication risk score. A second-generation bariatric consent form was described in detail including the possibility of protein malnutrition, leaks , gastrojejunal stricture, venous thrombosis, need for further surgery for which she demonstrated understanding. Benefits and risks of the procedure were described at length. Informed consent was obtained. DESCRIPTION: The patient was brought into the operating room theater. She was placed on a split leg table. Preoperatively she had received Lovenox subcutaneously for DVT prophylaxis. Additionally she had undergone Peridex oral solution as an oral decontaminant. After general induction, the abdomen was prepped and draped in standard sterile fashion. The patient had previously voided prior to coming to the operating room. Ioban draping was placed along the abdomen. A robotic da Brittany Si system was prepped and primed. The xiphoid to umbilicus measured 29 cm. At 20 cm from the xiphoid, proposed port sites were marked with indelible marker along the anterior axillary line bilaterally, mid axillary line bilaterally with each ports were marked 10 to 15 cm from each other. The printer's assistant port was marked along the left lateral abdominal wall. The robotic stapler port was marked for the right midclavicular line. A 10 mm 0 degrees laparoscopic trocar entry was performed along the left upper quadrant. The abdomen was insufflated to 15 mmHg pressure she tolerated well. Diagnostic laparoscopy demonstrated no injury to bowel, viscera, or mesentery. A large incarcerated incisional ventral hernia at the right upper quadrant was identified involving the transverse colon with partial obstruction. The liver surface was unremarkable. The liver and was round consistent with hepatomegaly and fatty liver disease. No injury had occurred to the small bowel or viscera. Along the hiatus no evidence of large prominent hiatal hernia was encountered. Moderate adhesions were found along the right lower quadrant of the greater omentum to the anterior abdominal wall. Bariatric mail handler equipment operator length robotic ports were selected for the entire case. Two 8 mm port was placed along the left upper abdominal wall after exchanging the 10 mm port. Please note that the ports were placed at least 20 cm away from the target anatomy. Care was taken to check each robotic arms were safely away from collision with the bed or the patient. At the epigastrium, a median sized Rosalia liver retractor was placed under direct visualization with the Iron Blasting Worker placed over the right shoulder of the patient. The additional third robotic arm was placed along the left aspect of the patient. A 12-mm port was placed along the right lateral abdominal wall to allow for adhesionolysis including reduction of her incarcerated ventral hernia and right upper quadrant. Extensive lysis of adhesions and reduction of her ventral hernia occurred for over 45 minutes. The size of defect was 11 cm. Endoscopic imaging was obtained. Next, one 8 mm robotic port and 12-mm robot stapler port was were placed along the right mid abdomen through the hernia. The camera 12-mm port extended length was maintained along the epigastrium. I had placed a 40-Croatian blunted bougie into the stomach. The patient was repositioned in reverse Trendelenburg position after lowering the bed. The robot was docked above the head of the patient. Using a grasper for arm 3, a veseel sealer for arm 2, including grasper for arm 1, the robotic system was docked and primed as described. Instruments were interchanged by the printer's assistant for stapler loads. The camera was placed at 30 down. I had sat at the console. The pylorus was identified and 6 cm proximally along the greater curvature of the stomach, the short gastrics were mobilized upwards to the angle of His using a vessel sealer. Hemostasis was excellent during this portion of the procedure. Next, the upper pole of the stomach was adherent to the left jeniffer, which was gently dissected free using atraumatic grasper. A robotic stapler was exchanged for atraumatic grasper of arm 1. Using 2 green loads, initial firing was across the antrum of the stomach towards the angle of His. In a similar direction, a total of 7 blue loads were fired towards the angle of Hss. The staple line was completely hemostatic and linear without corkscrewing. Hemostasis was excellent. The space from the angularis incisura of the sleeve was approximately 4 cm. I then went to the head of the bed to perform the intraoperative esophagogastroduodenoscopy leak test. The patient had been leveled. The upper pole of the stomach was bathed using normal saline solution. The scope was withdrawn with careful inspection along the staple line for which no leaks were found along the entire length. Additionally, the sleeve was completely hemostatic without any encroachment along the angularis incisura. Its topology was a straight tube. The GE junction was found to lay within and beyond into the abdominal cavity below the hiatus. No stricture was encountered upon placement of the scope. The GI tract was desufflated. The patient tolerated this portion of the procedure well. The scope was completely withdrawn. I then rescrubbed into case, whereby the irrigation fluid was aspirated from the abdominal cavity. Tisseel fibrin sealant was placed along the entire staple length. Once dried the Rosalia liver retractor was removed. Attention was now brought to removal of the specimen. The distal end of the sleeve gastrectomy specimen was brought out through the 13 mm port. The specimen was gently removed en total, corresponding to 25 cm x 6 cm sleeve gastrectomy specimen. No contamination had occurred during this process. All instruments and pneumoperitoneum including irrigation fluid was removed from the abdominal cavity. The 13 mm port site was irrigated with warm normal saline solution and diluted hydron peroxide. 3-0 Vicryl was used to reapproximate the 13 mm port site including the 8 mm port site. The final incisions were closed using subcuticular running suture of 4-0 Monocryl. Dermabond was applied to the skin once the skin had been cleansed. OptiFoam dressing was placed along the stomach extraction site. At the end of the procedure, needle, sponge, and instrument count was verified correct by the surgical specialist. The patient was taken to the postanesthesia care unit in stable condition. She had tolerated the procedure well and was taken to the postanesthesia unit in stable condition. Intraoperative films and findings were reviewed with the patient's family. Console time of 1 hr and 12 min. FINDINGS: 1. Negative intraoperative esophagogastrojejunoscopy leak test. 2. Fatty liver disease with hepatomegaly. 3. Total of 9 staplers used including 2 - 45 mm green robot beba and 7 - 45 mm blue robot loads used to create the gastric sleeve. 4. Xiphoid to umbilicus of 29 cm.
[2017-01-11] MEDS ORDERED: ONDANSETRON 4 MG/2 ML VIAL IVP ONE (14:20)
[2017-01-11] MEDS: ALBUTEROL NEBULIZED 2.5 MG/3 ML INHALATION SCH ×2 (15:41→19:35)
[2017-01-11 16:48] VITALS: BMI 55.4
[2017-01-11] MEDS: MAGNESIUM SULFATE-D5W PMX 1 GM in DEXTROSE/WATER 1 100ML.BAG IVPB SCH ×3 (17:01→19:27)
--- NOTE | 2017-01-11 19:21 | P.PN ---
Progress Note - Text Patient clinically doing well this afternoon. She is tolerating liquids. No reports of nausea and vomiting. Intraoperative findings were described. She will undergo esophagram in the morning. Discharge home tomorrow afternoon. Follow-up at the bariatric center in 48 hours.
[2017-01-11] MEDS: 0.9% NACL WITH KCL 20 MEQ/L 1,000 ML IV SCH ×2 (19:27→21:44)
[2017-01-11] MEDS: HYOSCYAMINE ORAL DROPS 1.875 MG/15 ML BOTTLE PO SCH ×2 (19:32→23:53)
[2017-01-11] MEDS ORDERED: PRAMIPEXOLE 0.5 MG TAB PO SCH (21:00)
[2017-01-11] MEDS ORDERED: BACLOFEN 10 MG TAB PO SCH (21:00)
[2017-01-11] MEDS: SIMETHICONE 40 MG/0.6 ML DROPS 2,000 MG/30 ML BOTTLE PO SCH ×2 (21:44→23:54)
[2017-01-12 00:58] VITALS: BP 151/73; PULSE 95; TEMP 97.9
[2017-01-12] MEDS: 0.9% NACL WITH KCL 20 MEQ/L 1,000 ML IV SCH (02:00)
[2017-01-12] MEDS ORDERED: LEVOTHYROXINE 75 MCG TAB PO SCH (06:30)
[2017-01-12 07:43] LABS: Basophils % (A) 0 %; CH 27.4; CHCM 31.8; Eosinophils % (A) 0 %; HDW 2.63; HGB 10.8 gm/dL (11.4-16.0); Luc % (Auto) 1; Lymphocytes # (A) 1.1 k/uL (1.0-4.8); Lymphocytes % (A) 12 %; MCH 27.5 pg (25.0-35.0); MCHC 31.8 g/dL (31.0-37.0); MCV 86.6 fL (80.0-100.0); Mean Platelet Volume 7.3; Monocytes # (A) 0.5 k/uL (0-1.0); Monocytes % (A) 6 %; Neutrophils # (A) 6.9 k/uL (1.3-7.7); Neutrophils % (A) 81 %; RBC 3.92 m/uL (3.80-5.40); RDW 15.7 % (11.5-15.5); WBC 8.6 k/uL (3.8-10.6); WBC (Perox) 9.31
[2017-01-12] MEDS ORDERED: 0.9% NACL WITH KCL 20 MEQ/L 1,000 ML IV SCH (08:00)
[2017-01-12 08:01] LABS: Anion Gap 7 mmol/L; Blood Urea Nitrogen 15 mg/dL (7-17); Calcium 9.5 mg/dL (8.4-10.2); Carbon Dioxide 27 mmol/L (22-30); Chloride 107 mmol/L (98-107); Non-African American GFR(MDRD) >60 (>60 ml/min/1.73 sqM); Potassium 4.1 mmol/L (3.5-5.1); Sodium 141 mmol/L (137-145)
[2017-01-12] MEDS: ALBUTEROL NEBULIZED 2.5 MG/3 ML INHALATION SCH ×2 (08:32→11:50)
[2017-01-12] MEDS ORDERED: PANTOPRAZOLE 40 MG/10 ML VIAL IV SCH (09:00)
[2017-01-12] MEDS ORDERED: amLODIPine 2.5 MG TAB PO SCH (09:00)
[2017-01-12] MEDS ORDERED: ENOXAPARIN 40 MG/0.4 ML SYRINGE SQ SCH (09:00)
--- NOTE | 2017-01-12 09:09 | FL ---
EXAMINATION TYPE: FL UGI DATE OF EXAM: 01/12/2017 COMPARISON: NONE HISTORY: Gastric sleeve surgery TECHNIQUE: A single contrast UGI study is performed. FINDINGS: Contrast passes from the distal esophagus through the gastric sleeve with moderate hesitanc y. No extravasation of contrast is evident. No free air is noted during this examination. Left hemidiaphragm is elevated. Overhead radiographs were obtained which are unremarkable. No extravasation is evident. IMPRESSIONS: 1. Normal post gastric sleeve without obstruction or hesitancy. No extravasation.
[2017-01-12 11:50] VITALS: RESP 124
--- NOTE | 2017-01-12 14:25 | P.PN ---
<Andreina Persaud M - Last Filed: 01/12/17 14:17> Subjective 51-year-old being seen on rounds this morning currently resting comfortably in bed in. Patient states she has been up ambulating from the bed to the bathroom and in the hallway. Denies any shortness of breath dizziness lightheadedness. Patient is postop sleeve gastrectomy for morbid obesity. Endoscopic sites no redness abdomen is soft nontender patient is tolerating the diet. Single contrast upper GI unremarkable. Patient is aware the plan will be to discharge patient this afternoon if no new clinical findings the white counts morning 8.6 hemoglobin 10.8. Potassium 4.1 and magnesium 2 electrolytes within normal limits patient is afebrile Objective - Vital Signs Vital signs: Vital Signs Temp 97.9 F 01/12/17 00:57 Pulse 95 01/12/17 00:57 Resp 124 H 01/12/17 11:40 BP 151/73 01/12/17 00:57 Pulse Ox 92 L 01/12/17 11:40 Intake & Output 01/11/17 01/12/17 01/12/17 18:59 06:59 18:59 Intake Total 1400 800 Output Total 270 940 400 Balance 1130 -140 -400 Weight 170.3 kg Intake: IV 1400 600 0.9% NaCl with KCl 20 Meq 600 /l 1,000 ml @ 150 mls/hr IV .Q6H40M [facility] Rx#: [id number] Oral 200 Output: Urine 250 940 400 Estimated Blood Loss 20 Other: Voiding Method Toilet # Voids 3 - Exam Physical exam Pleasant 50-year-old female resting comfortably in bed appears in no acute distress pleasant cooperative Lungs essentially clear adequate air movement on room air sats are 92% no cough noted Heart S1-S2 audible regular Abdomen obese soft surgical sites no redness not distended nontender bowel tones present no nausea no vomiting tolerating diet bariatric clear liquid dietitian consult obtained states urinating no difficulty Extremities no edema - Labs CBC & Chem 7: 01/12/17 07:15 01/12/17 07:15 Labs: Abnormal Lab Results - Last 24 Hours (Table) 01/12/17 Range/Units 07:15 Hgb 10.8 L (11.4-16.0) gm/dL RDW 15.7 H (11.5-15.5) % Assessment and Plan Plan: Impression Morbid obesity BMI 55 due to excessive calories Osteoarthritis of the left hip and lower back Hypertensive heart disease without cardiomyopathy Obstructive sleep apnea Esophageal reflux disease Hypothyroid Seasonal ALLERGIES Family history of morbid obesity Status post 11 of January laparoscopic reduction of incarcerated right upper quadrant incisional ventral hernia, robotic assisted laparoscopic sleeve gastrectomy Plan Increase activity Continue bariatric clear diet Resume home meds as appropriate DVT and GI prophylaxis Prepped for discharge today pending clinical course further recommendations pending Follow-up outpatient Dr. Ornelas this week at the bariatric center on January 14 at 10:30 The above impression and plan of care have been discussed and directed by signing physician. Andreina Persaud nurse practitioner acting as scribe for signing physician. <Stephany Ornelas N - Last Filed: 01/12/17 15:02> Objective - Vital Signs Vital signs: Vital Signs Temp 97.9 F 01/12/17 00:57 Pulse 95 01/12/17 00:57 Resp 124 H 01/12/17 11:40 BP 151/73 01/12/17 00:57 Pulse Ox 92 L 01/12/17 11:40 Intake & Output 01/11/17 01/12/17 01/12/17 18:59 06:59 18:59 Intake Total 1400 800 Output Total 270 940 400 Balance 1130 -140 -400 Weight 170.3 kg Intake: IV 1400 600 0.9% NaCl with KCl 20 Meq 600 /l 1,000 ml @ 150 mls/hr IV .Q6H40M [facility] Rx#: [id number] Oral 200 Output: Urine 250 940 400 Estimated Blood Loss 20 Other: Voiding Method Toilet # Voids 3 - Labs CBC & Chem 7: 01/12/17 07:15 01/12/17 07:15 Labs: Abnormal Lab Results - Last 24 Hours (Table) 01/12/17 Range/Units 07:15 Hgb 10.8 L (11.4-16.0) gm/dL RDW 15.7 H (11.5-15.5) %
--- NOTE | 2017-01-12 14:34 | P.DS ---
Providers Date of admission: 01/11/17 08:24 Expected date of discharge: 01/12/17 Attending physician: Stephany Ornelas Primary care physician: Sue Alfaro [facility] Course: 51-year-old female presented on an elective basis to undergo robotic-assisted laparoscopic sleeve gastrectomy for morbid obesity due to excessive calories. The BMI was 55 Postop there were no new events at the time of discharge patient was ambulatory on the unit on room air reports no nausea vomiting was tolerating a bariatric clear diet. Labs were all within normal limits afebrile vital signs stable Patient was felt to be hemodynamically stable and appropriate proceed with a discharge Impression Morbid obesity BMI 55 due to excessive calories Osteoarthritis of the left hip and lower back Hypertensive heart disease without cardiomyopathy Obstructive sleep apnea Esophageal reflux disease Hypothyroid Seasonal ALLERGIES Family history of morbid obesity Status post 11 of January laparoscopic reduction of incarcerated right upper quadrant incisional ventral hernia, robotic assisted laparoscopic sleeve gastrectomy the above impression and plan of care have been discussed and directed by signing physician. Andreina Persaud nurse practitioner acting as scribe for signing physician. Plan - Discharge Summary New Discharge Prescriptions: New Hyoscyamine Oral Drops [Levsin Drops] 0.125 mg PO Q6HR bottle Simethicone 40 mg/0.6 ml Drops [Mylicon Drops] 40 mg PO Q6HR bottle Omeprazole 40 mg PO DAILY #90 capsule. HYDROcodone/APAP [[place] Elixir 7.5-325Mg/15Ml] 15 ml PO Q4HR PRN #300 ml PRN Reason: Pain Continue Cetirizine HCl [Zyrtec] 10 mg PO HS Acetaminophen [Tylenol] 500 mg PO Q6HR PRN PRN Reason: Pain Gabapentin [Neurontin] 100 mg PO HS Pramipexole [Mirapex] 0.5 mg PO HS amLODIPine [Norvasc] 2.5 mg PO DAILY Baclofen [Lioresal] 20 mg PO HS Levothyroxine Sodium 150 mcg PO DAILY Discontinued Cholecalciferol [Vitamin D3] 5,000 unit PO DAILY Aspirin 81 mg PO DAILY Naproxen 500 mg PO BID Losartan/Hydrochlorothiazide [Hyzaar 100-25 Tablet] 1 tab PO DAILY Glucosamine/Chondr Zimmer A Sod [Osteo Bi-Flex Caplet] 1 tab PO DAILY Discharge Medication List Cetirizine HCl [Zyrtec] 10 mg PO HS 10/23/14 [History] Acetaminophen [Tylenol] 500 mg PO Q6HR PRN 09/02/16 [History] Gabapentin [Neurontin] 100 mg PO HS 09/02/16 [History] Pramipexole [Mirapex] 0.5 mg PO HS 09/02/16 [History] Baclofen [Lioresal] 20 mg PO HS 11/16/16 [History] amLODIPine [Norvasc] 2.5 mg PO DAILY 11/16/16 [History] Levothyroxine Sodium 150 mcg PO DAILY 01/06/17 [History] HYDROcodone/APAP [[place] Elixir 7.5-325Mg/15Ml] 15 ml PO Q4HR PRN #300 ml [Rx] Hyoscyamine Oral Drops [Levsin Drops] 0.125 mg PO Q6HR bottle 01/12/17 [Rx] Omeprazole 40 mg PO DAILY #90 capsule. 01/12/17 [Rx] Simethicone 40 mg/0.6 ml Drops [Mylicon Drops] 40 mg PO Q6HR bottle 01/12/17 [ Rx] Follow up Appointment(s)/Referral(s): Bariatric Center,. [NON-STAFF] - 01/14/17 10:30 am Patient Instructions/Handouts: Nutrition after Bariatric Surgery (DC), Laparoscopic Sleeve Gastrectomy (DC) Activity/Diet/Wound Care/Special Instructions: No lifting over 4 pounds in 4 weeks. Follow-up at the bariatric center. May sponge bath. Do not shower until cleared by surgeon. Dressings to be discontinued by surgeon in the office. Discharge Disposition: HOME SELF-CARE
[2017-01-13] MEDS ORDERED: BISACODYL 5 MG TABLET.DR PO PRN (08:00)
== END 2017-01-12 12:25 | disposition home or self-care (01) | DRG 621 ==
LOC: 2ORWHC 08:24 → 3SUR 13:56
PROVIDERS: ADMIT Surgery Plastic and Reconstructive Surgery; ATTEND Surgery Plastic and Reconstructive Surgery
PROC: 0DNS4ZZ (ICD-10-PCS; principal; 2017-01-11 10:10)
PROC: 0DJ08ZZ Inspection of Upper Intestinal Tract, Via Natural or Artificial Opening Endoscopic (ICD-10-PCS; principal; 2017-01-11 10:10)
PROC: 8E0W4CZ Robotic Assisted Procedure of Trunk Region, Percutaneous Endoscopic Approach (ICD-10-PCS; principal; 2017-01-11 10:10)
PROC: 0DB64Z3 Excision of Stomach, Percutaneous Endoscopic Approach, Vertical (ICD-10-PCS; principal; 2017-01-11 10:10)
DX: E66.01 Morbid (severe) obesity due to excess calories (principal); I11.9 Hypertensive heart disease without heart failure; K76.0 Fatty (change of) liver, not elsewhere classified; G62.9 Polyneuropathy, unspecified; K43.9 Ventral hernia without obstruction or gangrene; K66.0 Peritoneal adhesions (postprocedural) (postinfection); E55.9 Vitamin D deficiency, unspecified; E03.9 Hypothyroidism, unspecified; G47.33 Obstructive sleep apnea (adult) (pediatric); G89.29 Other chronic pain; J45.909 Unspecified asthma, uncomplicated; K21.9 Gastro-esophageal reflux disease without esophagitis; K44.9 Diaphragmatic hernia without obstruction or gangrene; M16.12 Unilateral primary osteoarthritis, left hip; M47.9 Spondylosis, unspecified; Z68.43 Body mass index [BMI] 50.0-59.9, adult; Z79.82 Long term (current) use of aspirin; Z79.899 Other long term (current) drug therapy; Z82.49 Family history of ischemic heart disease and other diseases of the circulatory system; Z88.1 Allergy status to other antibiotic agents; Z88.5 Allergy status to narcotic agent
CPT/HCPCS: 74240; 80051; 82310; 82565; 83735; 84100; 84132; 84520; 85025; 86850; 86900; 86901; 88307; 94760

== ENCOUNTER → 2017-01-13 | Outpatient (CLI) | payer BC ==
[2017-01-13 15:03] VITALS: BMI 56.7
[2017-01-13 15:05] VITALS: BP 172/73; PULSE 83; TEMP 98.2
--- NOTE | 2017-01-24 17:13 | P.PN ---
Subjective DATE OF SERVICE: 01/13/2017 CHIEF COMPLAINT: Follow-up sleeve gastrectomy HISTORY OF PRESENT ILLNESS: Michelle Larsen is a 51-year-old female who initially presented to the bariatric center in August 2016. She is status post sleeve gastrectomy on 01/11/2017. No reports of nausea or vomiting. No reports of fevers or chills. She is tolerating liquids. Her highest weight is 386 pounds. She has lost 5 pounds in 1 month. At her height of 5 feet 8-1/2 inches, her ideal body weight is 163 pounds. She is 217 pounds overweight. Her body mass index is 57.1. PHYSICAL EXAM: VITAL SIGNS: 5 feet 8-1/2, 380 pounds. Body mass index of 57.1 Vital Signs Temp 98.2 F 01/13/17 15:02 Pulse 83 01/13/17 15:02 Resp BP 172/73 01/13/17 15:02 Pulse Ox GENERAL: Well-developed female in no acute distress. HEENT: No scleral icterus. Extraocular movements grossly intact. Moist mucosa. NECK: Supple without lymphadenopathy. CHEST: Nonlabored respirations. Equal bilateral excursions. CARDIOVASCULAR: Regular rate and rhythm. ABDOMEN: Protuberant, soft, nontender, nondistended. Dressing discontinued. No signs of infection or cellulitis. MUSCULOSKELETAL: No clubbing, cyanosis, 2+ bilateral pitting edema. NEURO: No focal lateralizing signs. Cranial nerves 2 through 12 grossly intact. PSYCH: Appropriate affect. Alert and oriented to person, place, and time. SKIN: Well perfused. Good skin turgor. ASSESSMENT: 1. Morbid obesity due to excess calories. 2. Body mass index of 58.0. to 57.1 3. Hypothyroidism. 4. Osteoarthritis of the left hip. 5. Osteoarthritis of the lower back. 6. Family history of morbid obesity. 7. Family history of thyroid disorders. 8. History of food allergies. 9. Family history of pulmonary embolism within her mother. 10. Hypertensive heart disease without cardiomyopathy. 11. Seasonal allergies. 12. Dietitian evaluation and counseling. 13. Hiatal hernia. 14. Gastroesophageal reflux disease. 15. Elevated calcium. 16. Obstructive sleep apnea. 17. Status post sleeve gastrectomy. PLAN: 1. Recommend fluid intake of 64 ounces daily. 2. Start protein shakes at least 75 g daily. 3. Follow-up with dietitian. 4. Recommend follow-up at the [facility] February 2017.
== END | disposition home or self-care (01) ==
LOC: BARWHC3 13:53
PROVIDERS: ATTEND Surgery Plastic and Reconstructive Surgery
DX: Z09 Encounter for follow-up examination after completed treatment for conditions other than malignant neoplasm (principal); E66.01 Morbid (severe) obesity due to excess calories; Z68.43 Body mass index [BMI] 50.0-59.9, adult; E03.9 Hypothyroidism, unspecified; M16.12 Unilateral primary osteoarthritis, left hip; M47.816 Spondylosis without myelopathy or radiculopathy, lumbar region; I11.9 Hypertensive heart disease without heart failure; J30.2 Other seasonal allergic rhinitis; K44.9 Diaphragmatic hernia without obstruction or gangrene; K21.9 Gastro-esophageal reflux disease without esophagitis; G47.33 Obstructive sleep apnea (adult) (pediatric); E83.52 Hypercalcemia; Z83.49 Family history of other endocrine, nutritional and metabolic diseases; Z82.49 Family history of ischemic heart disease and other diseases of the circulatory system; Z71.3 Dietary counseling and surveillance; Z98.84 Bariatric surgery status
CPT/HCPCS: 97802; 99211

== ENCOUNTER → 2017-03-03 | Outpatient (CLI) | payer BC ==
[2017-03-03 15:08] VITALS: BP 153/72; RESP 16; TEMP 97.7; BMI 53.1
[2017-03-03 17:00] LABS: CHCM 30.3; HCT 41.3 % (34.0-46.0); HDW 2.52; HGB 12.5 gm/dL (11.4-16.0); Hypochromasia Moderate; MCH 26.1 pg (25.0-35.0); MCHC 30.3 g/dL (31.0-37.0); MCV 86.2 fL (80.0-100.0); Mean Platelet Volume 7.3; RBC 4.79 m/uL (3.80-5.40); WBC 10.2 k/uL (3.8-10.6)
[2017-03-03 17:07] LABS: INR 1.1 (<1.2); Partial Thromboplastin Time 25.5 sec (22.0-30.0); Prothrombin Time 10.7 sec (9.0-12.0)
[2017-03-03 17:16] LABS: ALT 40 U/L (9-52); AST 21 U/L (14-36); Alkaline Phosphatase 79 U/L (38-126); Anion Gap 11 mmol/L; Blood Urea Nitrogen 28 mg/dL (7-17); Calcium 10.6 mg/dL (8.4-10.2); Carbon Dioxide 26 mmol/L (22-30); Chloride 104 mmol/L (98-107); Cholesterol 179 mg/dL (<200); Glucose 107 mg/dL (74-99); HDL Cholesterol 50 mg/dL (40-60); Magnesium 1.8 mg/dL (1.6-2.3); Non-African American GFR(MDRD) >60 (>60 ml/min/1.73 sqM); Phosphorous 3.7 mg/dL (2.5-4.5); Sodium 141 mmol/L (137-145); Total Bilirubin 0.4 mg/dL (0.2-1.3); Total Protein 8.2 g/dL (6.3-8.2)
[2017-03-04 01:42] LABS: Iron Saturation 7.98 (12.00-45.00)
[2017-03-05 19:08] LABS: Selenium 161 mcg/L (63-160)
== END | disposition home or self-care (01) ==
LOC: BARWHC3 13:54
PROVIDERS: ATTEND Surgery Plastic and Reconstructive Surgery
DX: Z01.810 Encounter for preprocedural cardiovascular examination (principal); E66.01 Morbid (severe) obesity due to excess calories; N19 Unspecified kidney failure; E21.1 Secondary hyperparathyroidism, not elsewhere classified; E89.1 Postprocedural hypoinsulinemia; D50.8 Other iron deficiency anemias; K90.89 Other intestinal malabsorption; E55.9 Vitamin D deficiency, unspecified; K74.1 Hepatic sclerosis; K50.90 Crohn's disease, unspecified, without complications
CPT/HCPCS: 80053; 80061; 82306; 82525; 82607; 82728; 82746; 83036; 83540; 83550; 83735; 83970; 84100; 84134; 84255; 84425; 84443; 84590; 84630; 85027; 85610; 85730; 97803; 99211

== ENCOUNTER → 2017-03-11 | Outpatient (CLI) | payer BC ==
--- NOTE | 2017-03-11 13:16 | PN ---
PROGRESS NOTE DATE OF SERVICE: 03/11/2017 51-year-old lady has been followed in Sleep Center for treatment of obstructive sleep apnea-hypopnea syndrome. I discussed results of sleep study with patient in details. She has had home sleep apnea test which showed apnea-hypopnea index 19.1 with oxygen desaturation to 78%. The patient was started on treatment with auto PAP in the range of pressure of 5-20. Now, she came back for followup visit. She is using her CPAP equipment. She has tried to use it every night. She has no snoring with the machine. I checked her CPAP unit. Usage is 23/30 nights for more than 4 hours 19/30 for 1 month. For 3 month period she has used it 59/70 nights and 53/70 nights for more than 4 hours. Average usage 4.8 hours, leak up to 10 L/min which is normal. Average pressure in the range 14.4 cm of water. Apnea-hypopnea index is 1.9, which is absolutely normal range. In the first month when the patient started to use her equipment, she used it 29/30 nights and usage for more than 4 hours was 28 days, which is 93% of the time and showed good compliance. MEDICATIONS: Synthroid, amlodipine, Zantac and Tylenol as needed, medications for acid reflex. PHYSICAL EXAM: Patient in no distress. BP 166/91, HR 84, RR 16, weight 350, temp 97.5, oxygen saturation room air 99%. HEENT PERRLA, EOMI, evaluation of oropharynx showed low position of soft palate. NECK Supple, no JVD. Thyroid is not palpable. LUNGS Clear to percussion and to auscultation. Good air exchange. No wheezing or rhonchi. HEART S1, S2 regular. No murmurs, gallops, or rubs. ABDOMEN Obese. Soft and nontender. Bowel sounds are present. No organomegaly appreciated. EXTREMITIES 1 to 2+ ankle edema. No clubbing or cyanosis. 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 Cranial nerves 2 to 7 intact. There is no fasciculation or atrophy. noted. No focal deficits observed. IMPRESSION: 1. Moderate obstructive sleep apnea-hypopnea syndrome. Apnea-hypopnea index 19 by results of home sleep apnea test on control with auto PAP with a average pressure 14.4 cm of water. 2. Obesity. 3. Hypertension. 4. Swelling of the legs. 5. Hypothyroidism. 6. Allergy. PLAN: 1. Patient will continue to use her equipment every night for the whole night. 2. Losing weight. 3. Sleep hygiene with regular time in bed for at least 7-1/2 hours. 4. No driving if feeling sleepiness. Thank you very much for allowing me to participate in management of your patient. Sincerely, Alden Rubio MD, PhD, FAASM Diplomat of [employer] Fire Extinguisher Technician of [facility] [place] MMODL / CASSIN: [id number] /
== END ==
LOC: SLEEP 11:45
PROVIDERS: ATTEND Internal Medicine
DX: G47.33 Obstructive sleep apnea (adult) (pediatric) (principal); E66.9 Obesity, unspecified; I10 Essential (primary) hypertension; E03.9 Hypothyroidism, unspecified; M79.89 Other specified soft tissue disorders; T78.40XA Allergy, unspecified, initial encounter; Z79.899 Other long term (current) drug therapy

== ENCOUNTER → 2017-04-14 | Outpatient (CLI) | payer BC ==
[2017-04-14 16:02] VITALS: BP 151/88; PULSE 88; RESP 16; TEMP 94.6; BMI 49.9
[2017-04-14 18:05] LABS: Anisocytosis Slight; HGB 13.2 gm/dL (11.4-16.0); Hypochromasia Moderate; MCH 26.5 pg (25.0-35.0); MCHC 30.8 g/dL (31.0-37.0); MCV 86.1 fL (80.0-100.0); Mean Platelet Volume 7.8; Platelet Count 363 k/uL (150-450); RBC 4.99 m/uL (3.80-5.40); RDW 16.7 % (11.5-15.5); WBC 13.8 k/uL (3.8-10.6)
[2017-04-14 18:22] LABS: ALT 43 U/L (9-52); AST 24 U/L (14-36); Albumin 4.8 g/dL (3.5-5.0); Alkaline Phosphatase 83 U/L (38-126); Anion Gap 14 mmol/L; Blood Urea Nitrogen 41 mg/dL (7-17); Calcium 11.3 mg/dL (8.4-10.2); Carbon Dioxide 28 mmol/L (22-30); Chloride 103 mmol/L (98-107); Cholesterol 197 mg/dL (<200); Glucose 109 mg/dL (74-99); HDL Cholesterol 62 mg/dL (40-60); LDL Cholesterol,Calculated 118 mg/dL (0-99); Phosphorus 4.2 mg/dL (2.5-4.5); Potassium 5.4 mmol/L (3.5-5.1); Sodium 145 mmol/L (137-145); Total Bilirubin 0.5 mg/dL (0.2-1.3); Total Protein 8.4 g/dL (6.3-8.2); Triglycerides 83 mg/dL (<150)
[2017-04-14 18:58] LABS: Partial Thromboplastin Time 22.6 sec (22.0-30.0)
[2017-04-14 19:02] LABS: Prothrombin Time 10.1 sec (9.0-12.0)
[2017-04-15 01:19] LABS: Iron Saturation 8.52 (12.00-45.00)
[2017-04-15 01:28] LABS: Vitamin D 25 Hydroxy 34.8 ng/mL (30.0-100.0)
[2017-04-15 01:34] LABS: Folate, Serum 19.8 ng/mL
[2017-04-15 01:40] LABS: Parathyroid Hormone Intact 71.6 pg/mL (14.0-72.0)
[2017-04-15 01:48] LABS: Hemoglobin A1C 5.6 % (4.0-6.0)
[2017-04-17 02:55] LABS: Zinc, Serum 80 ug/dL (60-130)
[2017-04-17 05:58] LABS: Vitamin B1 62 ug/L (38-122)
[2017-04-17 06:32] LABS: Vitamin A 65 ug/dL (38-106)
[2017-04-22 11:06] LABS: Selenium 193 mcg/L (63-160)
--- NOTE | 2017-05-26 05:25 | P.PN ---
Subjective Progress Note Date: 04/14/17 DATE OF SERVICE: 04/14/2017 CHIEF COMPLAINT: Follow-up sleeve gastrectomy HISTORY OF PRESENT ILLNESS: Michelle Larsen is a 51-year-old female who initially presented to the bariatric center in August 2016. She is status post sleeve gastrectomy on 01/11/2017. She denies any nausea and vomiting. No reports of reflux disease. No reports of abdominal pain. No reports of dysphagia. She presents for her 3+ month post-procedure follow-up Her highest weight is 386 pounds. She has lost 21 pounds since her last visit one month ago. At her height of 5 feet 8-1/2 inches, her ideal body weight is 163 pounds. She is 172 pounds overweight. She has lost 51 pounds, lifetime. Her body mass index is reduced from 58.0 to 50.3. PAST MEDICAL HISTORY. 1. Morbid obesity. 2. Hypothyroidism. 3. Osteoarthritis of the left hip. 4. Hypertension. 5. Neuropathy. 6. Vitamin D deficiency. 7. Seasonal allergies. 8. Gastroesophageal reflux disease. 9. Obstructive sleep apnea. PAST SURGICAL HISTORY: 1. Hysterectomy. 2. Tonsillectomy. 3. Sinus surgery. 4. Previous orthopedic procedures. 5. Upper endoscopy. 6. Sleep study. 7. Sleeve gastrectomy. MEDICATIONS: 1. Mirapex. 2. Baclofen. 3. Losartan/hydrochlorothiazide. 4. Synthroid. 5. Neurontin. 6. Vitamin D. 7. Zyrtec. 8. Aspirin. 9. Tylenol. 10. Norvasc. 11. Omeprazole. 12. Levsin. ALLERGIES: AMOXICILLIN, ERYTHROMYCIN, MORPHINE SOCIAL HISTORY: Lifelong nontobacco user. She is . FAMILY HISTORY: Pertinent for a pulmonary embolus including morbid obesity. Also family history of thyroid disorders. REVIEW OF SYSTEMS: CONSTITUTIONAL: Her highest weight is 386 pounds. She has lost 21 pounds since her last visit one month ago. At her height of 5 feet 8-1/2 inches, her ideal body weight is 163 pounds. She is 172 pounds overweight. She has lost 51 pounds, lifetime. Her body mass index is reduced from 58.0 to 50.3. HEENT: No troubles with vision, hearing. Denies any dysphagia. ENDOCRINE: History of thyroid disorders. Personal history of diabetes. RESPIRATORY: Denies any pneumonia or dyspnea on exertion. Has obstructive sleep apnea. CARDIOVASCULAR: History of hypertension. No reports of change pain, heart attack, palpitations. GASTROINTESTINAL: Denies any diarrhea or constipation. Denies any blood in the stools. His ESOPHAGEAL reflux disease. MUSCULOSKELETAL: Has diffuse osteoarthritis, which includes the hips and lower back. NEURO: History of occasional neuropathy. No strokes. HEMATOLOGIC: Denies any personal history of DVTs; however, her mother did have for DVT as well. SKIN: No reports of active skin rash or active skin cancer. PHYSICAL EXAM: VITAL SIGNS: 5 feet 8-1/2, 335 pounds. Body mass index of 50.0. Vital Signs Temp 94.6 F L 04/14/17 15:59 Pulse 88 04/14/17 15:59 Resp 16 04/14/17 15:59 BP 151/88 04/14/17 15:59 Pulse Ox GENERAL: Well-developed female in no acute distress. HEENT: No scleral icterus. Extraocular movements grossly intact. Moist mucosa. NECK: Supple without lymphadenopathy. CHEST: Nonlabored respirations. Equal bilateral excursions. CARDIOVASCULAR: Regular rate and rhythm. ABDOMEN: Protuberant, soft, nontender, nondistended. No palpable incisional hernias. MUSCULOSKELETAL: No clubbing, cyanosis. Trace bilateral pitting edema. NEURO: No focal lateralizing signs. Cranial nerves 2 through 12 grossly intact. PSYCH: Appropriate affect. Alert and oriented to person, place, and time. SKIN: Well perfused. Good skin turgor. Laboratory Last Values WBC 10.2 k/uL (3.8-10.6) 03/03/17 16:27 RBC 4.79 m/uL (3.80-5.40) 03/03/17 16:27 Hgb 12.5 gm/dL (11.4-16.0) 03/03/17 16:27 Hct 41.3 % (34.0-46.0) 03/03/17 16:27 MCV 86.2 fL (80.0-100.0) 03/03/17 16:27 MCH 26.1 pg (25.0-35.0) 03/03/17 16:27 MCHC 30.3 g/dL (31.0-37.0) L 03/03/17 16:27 RDW 16.0 % (11.5-15.5) H 03/03/17 16:27 Plt Count 354 k/uL (150-450) 03/03/17 16:27 Hypochromasia Moderate 03/03/17 16:27 PT 10.7 sec (9.0-12.0) 03/03/17 16:27 INR 1.1 (<1.2) 03/03/17 16:27 APTT 25.5 sec (22.0-30.0) 03/03/17 16:27 Sodium 141 mmol/L (137-145) 03/03/17 16:27 Potassium 5.0 mmol/L (3.5-5.1) 03/03/17 16:27 Chloride 104 mmol/L (98-107) 03/03/17 16:27 Carbon Dioxide 26 mmol/L (22-30) 03/03/17 16:27 Anion Gap 11 mmol/L 03/03/17 16:27 BUN 28 mg/dL (7-17) H 03/03/17 16:27 Creatinine 0.70 mg/dL (0.52-1.04) 03/03/17 16:27 Est GFR (MDRD) Af Amer >60 (>60 ml/min/1.73 sqM) 03/03/17 16:27 Est GFR (MDRD) Non-Af >60 (>60 ml/min/1.73 sqM) 03/03/17 16:27 Glucose 107 mg/dL (74-99) H 03/03/17 16:[address] Glu mg/dL 108 03/03/17 16:27 Hemoglobin A1c 5.4 % (4.0-6.0) 03/03/17 16:27 Calcium 10.6 mg/dL (8.4-10.2) H 03/03/17 16:27 Phosphorus 3.7 mg/dL (2.5-4.5) 03/03/17 16:27 Magnesium 1.8 mg/dL (1.6-2.3) 03/03/17 16:27 Iron 28 ug/dL (50-170) L 03/03/17 16:27 TIBC 351 ug/dL (228-460) 03/03/17 16:27 Iron Saturation 7.98 (12.00-45.00) L 03/03/17 16:27 Ferritin 30.7 ng/mL (10.0-291.0) 03/03/17 16:27 Total Bilirubin 0.4 mg/dL (0.2-1.3) 03/03/17 16:27 AST 21 U/L (14-36) 03/03/17 16:27 ALT 40 U/L (9-52) 03/03/17 16:27 Alkaline Phosphatase 79 U/L (38-126) 03/03/17 16:27 Total Protein 8.2 g/dL (6.3-8.2) 03/03/17 16:27 Albumin 4.6 g/dL (3.5-5.0) 03/03/17 16:27 Prealbumin 20.0 mg/dL (18.0-42.0) 03/03/17 16:27 Triglycerides 84 mg/dL (<150) 03/03/17 16:27 Cholesterol 179 mg/dL (<200) 03/03/17 16:27 LDL Cholesterol, Calc 112 mg/dL (0-99) H 03/03/17 16:27 HDL Cholesterol 50 mg/dL (40-60) 03/03/17 16:27 Vitamin A 53 ug/dL (38-106) 03/03/17 16:27 Vitamin B1 67 ug/L (38-122) 03/03/17 16:27 Vitamin B12 499.0 pg/mL (200.0-944.0) 03/03/17 16:27 Vitamin D 25-Hydroxy 38.2 ng/mL (30.0-100.0) 03/03/17 16:27 Folate 16.5 ng/mL 03/03/17 16:27 TSH 2.370 mIU/L (0.465-4.680) 03/03/17 16:27 PTH Intact 50.7 pg/mL (14.0-72.0) 03/03/17 16:27 Copper 1328 ug/L (810-1990) 03/03/17 16:27 Selenium 161 mcg/L (63-160) H 03/03/17 16:27 Zinc 64 ug/dL (60-130) 03/03/17 16:27 Calcium elevated. Iron is low. Selenium elevated. ASSESSMENT: 1. Morbid obesity due to excess calories. 2. Body mass index of 58.0. to 50.0. 3. Hypothyroidism. 4. Osteoarthritis of the left hip. 5. Osteoarthritis of the lower back. 6. Family history of morbid obesity. 7. Family history of thyroid disorders. 8. Elevated calcium. 9. Obstructive sleep apnea. 10. Status post sleeve gastrectomy. 11. Iron deficiency. PLAN: 1. Recommend iron supplement. 2. As she had weight loss surgery to allow for orthopedic procedure, patient advised to be cautious of exposure to NSAIDs. 3. Continue with protein over 80 g daily. 4. Recommend removal of additional calcium source. 5. Follow-up 6 months for June 2017. Objective - Vital Signs Vital signs: Vital Signs Temp 94.6 F L 04/14/17 15:59 Pulse 88 04/14/17 15:59 Resp 16 04/14/17 15:59 BP 151/88 04/14/17 15:59 Pulse Ox Intake & Output 04/13/17 04/14/17 04/14/17 18:59 06:59 18:59 Weight 152.18 kg - Labs CBC & Chem 7: 04/14/17 17:42 04/14/17 17:42
== END | disposition home or self-care (01) ==
LOC: BARWHC3 15:45
PROVIDERS: ATTEND Surgery Plastic and Reconstructive Surgery
DX: Z48.815 Encounter for surgical aftercare following surgery on the digestive system (principal); E66.01 Morbid (severe) obesity due to excess calories; E03.9 Hypothyroidism, unspecified; M16.12 Unilateral primary osteoarthritis, left hip; M47.816 Spondylosis without myelopathy or radiculopathy, lumbar region; G47.33 Obstructive sleep apnea (adult) (pediatric); I10 Essential (primary) hypertension; D50.9 Iron deficiency anemia, unspecified; E21.1 Secondary hyperparathyroidism, not elsewhere classified; E89.1 Postprocedural hypoinsulinemia; D50.8 Other iron deficiency anemias; K90.89 Other intestinal malabsorption; E55.9 Vitamin D deficiency, unspecified; K76.9 Liver disease, unspecified; N19 Unspecified kidney failure; G62.9 Polyneuropathy, unspecified; J30.2 Other seasonal allergic rhinitis; K21.9 Gastro-esophageal reflux disease without esophagitis; K50.90 Crohn's disease, unspecified, without complications; Z68.43 Body mass index [BMI] 50.0-59.9, adult; Z79.899 Other long term (current) drug therapy; Z79.82 Long term (current) use of aspirin; Z88.1 Allergy status to other antibiotic agents; Z88.5 Allergy status to narcotic agent; Z90.710 Acquired absence of both cervix and uterus; Z98.84 Bariatric surgery status
CPT/HCPCS: 80053; 80061; 82306; 82525; 82607; 82728; 82746; 83036; 83540; 83550; 83735; 83970; 84100; 84134; 84255; 84425; 84443; 84590; 84630; 85027; 85610; 85730; 97803; 99211

== ENCOUNTER → 2017-05-28 | Outpatient (CLI) | payer BC ==
[2017-05-28 11:42] LABS: HCT 41.8 % (34.0-46.0); HGB 12.7 gm/dL (11.4-16.0); Hypochromasia Slight; MCH 26.7 pg (25.0-35.0); MCHC 30.3 g/dL (31.0-37.0); MCV 88.2 fL (80.0-100.0); Mean Platelet Volume 6.6; Platelet Count 321 k/uL (150-450); RBC 4.74 m/uL (3.80-5.40); RDW 15.2 % (11.5-15.5); WBC 8.7 k/uL (3.8-10.6)
[2017-05-28 11:43] LABS: Appearance,Urine Clear (Clear); Bilirubin,Urine Negative (Negative); Blood,Urine Negative (Negative); Color,Urine Yellow; Glucose,Urine (UA) Negative (Negative); Ketones,Urine Negative (Negative); Leukocyte Esterase,Urine Negative (Negative); Nitrite,Urine Negative (Negative); PH, Urine 5.5 (5.0-8.0); Protein,Urine Negative (Negative); Specific Gravity,Urine 1.023 (1.001-1.035); Urobilinogen,Urine <2.0 mg/dL (<2.0)
[2017-05-28 11:47] LABS: ALT 30 U/L (9-52); AST 26 U/L (14-36); Albumin 4.7 g/dL (3.5-5.0); Alkaline Phosphatase 82 U/L (38-126); Anion Gap 13 mmol/L; Blood Urea Nitrogen 32 mg/dL (7-17); Calcium 11.2 mg/dL (8.4-10.2); Carbon Dioxide 27 mmol/L (22-30); Chloride 103 mmol/L (98-107); Glucose 103 mg/dL (74-99); Sodium 143 mmol/L (137-145); Total Bilirubin 0.5 mg/dL (0.2-1.3); Total Protein 8.1 g/dL (6.3-8.2)
[2017-05-28 11:52] LABS: Potassium 5.6 mmol/L (3.5-5.1)
[2017-05-28 12:03] LABS: Partial Thromboplastin Time 23.6 sec (22.0-30.0)
== END | disposition home or self-care (01) ==
LOC: LABPAT 10:45
PROVIDERS: ATTEND Orthopaedic Surgery
DX: Z01.812 Encounter for preprocedural laboratory examination (principal); Z01.818 Encounter for other preprocedural examination
CPT/HCPCS: 80053; 81003; 85027; 85610; 85730; 86850; 86900; 86901; 87070

== ENCOUNTER → 2017-05-28 | Outpatient (CLI) | payer BC | END | disposition home or self-care (01) | LOC: LABWHC1 10:45 | PROVIDERS: ATTEND Family Medicine | DX: E83.52 Hypercalcemia (principal) | CPT/HCPCS: 36415; 82330; 83970 ==

== ENCOUNTER 2017-06-08 05:59 | Inpatient (IN) | payer BC ==
[2017-05-28 09:04] VITALS: BMI 47.2
[~2017-06-08 05:59] MED LIST changes: -ACETAMINOPHEN IV (For NPO) 1,000 MG in EMPTY BAG 1 BAG IVPB ONE; +ACETAMINOPHEN TAB 500 MG TAB PO ONE; -CHLORHEXIDINE GLUCONATE 15 ML CUP MUCOUS MEM ONE; -HYDROmorphone 1 MG/ML 1 ML SYRINGE IVP PRN; -LACTATED RINGERS 1,000 ML IV SCH; +MELOXICAM 7.5 MG TAB PO ONE; +MIDAZOLAM 2 MG/2 ML VIAL IV PRN; -PANTOPRAZOLE 40 MG/10 ML VIAL IV STA; +SCOPOLAMINE 1.5MG/72HR PATCH TRANSDERM ONE; -SCOPOLAMINE 1.5MG/72HR PATCH TRANSDERM STA; +TRANEXAMIC ACID 1,000 MG in SODIUM CHLORIDE 0.9% 50 ML IVPB ONE; -ceFAZolin 3 GM in SODIUM CHLORIDE 0.9% 100 ML IVPB ONE; +fentaNYL (PF) 50 MCG/ML 2 ML AMP IV PRN
[2017-06-08] MEDS ORDERED: LIDOCAINE 1% 20 ML VIAL (10MG/ML) FOR IV START INTRADERMA ONE (06:20)
[2017-06-08] MEDS: LACTATED RINGERS 1,000 ML IV SCH (06:33)
[2017-06-08] MEDS ORDERED: HYDROmorphone 0.5 MG/0.5 ML SYRINGE IVP PRN ×3 (07:04)
[2017-06-08] MEDS ORDERED: hydrOXYzine PAMOATE 25 MG CAP PO PRN (07:04)
[2017-06-08] MEDS ORDERED: MAGNESIUM HYDROXIDE 2,400 MG/10 ML CUP PO PRN (07:04)
[2017-06-08] MEDS ORDERED: HYDROcodone/APAP 7.5-325MG 1 EACH TAB PO PRN (07:04)
[2017-06-08] MEDS ORDERED: ONDANSETRON 4 MG/2 ML VIAL IVP PRN (07:04)
[2017-06-08] MEDS ORDERED: DIAZEPAM 5 MG TAB PO PRN ×2 (07:04)
[2017-06-08] MEDS ORDERED: NALOXONE 0.4 MG/ML 1 ML VIAL IV PRN (07:04)
[2017-06-08] MEDS ORDERED: SODIUM CHLORIDE 0.9% IRRIG 1,000 ML BTL IRRIGATION ONE (07:26)
[2017-06-08] MEDS ORDERED: HEPARIN SODIUM,PORCINE 10,000 UNIT/ML 1 ML VIAL ONE (07:26)
[2017-06-08] MEDS ORDERED: TRANEXAMIC ACID 1,000 MG/10 ML VIAL ONE (07:26)
[2017-06-08] MEDS ORDERED: PHENYLEPHRINE-0.9% NACL SYG 1 MG/10 ML SYRINGE ONE (07:26)
[2017-06-08] MEDS ORDERED: MIDAZOLAM 2 MG/2 ML VIAL ONE (07:26)
[2017-06-08] MEDS ORDERED: PROPOFOL 10 MG/ML 20 ML VIAL IV ONE (07:26)
[2017-06-08] MEDS ORDERED: SODIUM CHLORIDE 0.9% 100 ML BAG ONE (07:26)
[2017-06-08] MEDS ORDERED: fentaNYL (PF) 50 MCG/ML 2 ML AMP ONE (07:26)
[2017-06-08] MEDS ORDERED: ceFAZolin 3 GM in SODIUM CHLORIDE 0.9% 100 ML IVPB SCH (08:00)
[2017-06-08] MEDS: ROPIVACAINE 246.25 MG, EPINEPHrine 0.5 MG, KETOROLAC 30 MG, cloNIDine HCL/PF 80 MCG, WA... MISCELLANE ONE ×10 (08:01→08:46)
[2017-06-08] MEDS ORDERED: CLINDAMYCIN 600 MG in SODIUM CHLORIDE 0.9% 1,000 ML IRRIGATION ONE ×4 (08:02)
[2017-06-08] MEDS ORDERED: MELOXICAM 7.5 MG TAB PO SCH (09:00)
[2017-06-08] MEDS ORDERED: ASPIRIN 325 MG TAB PO SCH (09:00)
--- NOTE | 2017-06-08 09:03 | P.OP ---
Date of Procedure: 06/08/17 Preoperative Diagnosis: Severe osteoarthritis left hip Postoperative Diagnosis: Severe osteoarthritis left hip Procedure(s) Performed: Left total hip arthroplasty with a direct anterior approach Implants: Ingram and nephew Polarstem size 8 standard Ingram & Nephew R3, 3 hole acetabular shell, 52 mm Ingram [employer] Nephew reflection 6.5 mm cancellus screw, 20 mm 2 Ingram [employer] Nephew R3, XLPE 20 acetabular liner Ingram & Nephew Oxinium femoral head 36 m, +0 All components were press-fit. The articulation is Oxinium on polyethylene. Anesthesia: spinal Surgeon: Wilmar Monahan Building Construction Contractor #1: Yaz Monte Estimated Blood Loss (ml): 175 (70 mL returned with Cell Saver) Pathology: other (Femoral head) Condition: stable Disposition: PACU Indications for Procedure: After failure of conservative treatment we discussed the surgical and nonsurgical treatment options at length. Patient wishes to proceed with a total hip arthroplasty with a direct anterior approach. Complications specific to this procedure were discussed at length, including but not limited to infection, leg length discrepancy, dislocation, and nerve injury. Patient is aware of all these complications and informed consent was obtained Operative Findings: The operative findings are consistent with severe osteoarthritis of the left hip Description of Procedure: Patient was seen and evaluated in the preoperative area, consent was reviewed, and the surgical site was marked with a skin marker. Patient was then brought to the operating room and given prophylactic antibiotics intravenously. 1 g of Tranexamic acid was also given. A spinal anesthetic was administered by the anesthesia department. The patient was then placed on the Wayne table with the bony prominences well-padded. The hip area was then prepped and draped in usual sterile fashion. A universal timeout was then performed, which confirmed the patient's name, surgical site, ALLERGIES, and procedure being performed. Next the incision site was located at 1 cm distal and 1 cm lateral to the anterior superior iliac spine. The skin and subcutaneous tissues were sharply incised. Incision was carefully dissected down to the fascia overlying the tensor fascia reece muscle. This fascia was then incised in line with the incision. Next, using blunt finger dissection, the tensor fascia reece muscle was dissected off its investing fascia. The muscle was then carefully retracted laterally with a cobra retractor over the lateral neck of the femur. Next, the circumflex vessels were identified and cauterized using the AquaMantis device. The anterior hip capsule was then exposed. The capsule was then opened and an inverted T fashion. Cobra retractors were then placed intracapsularly. The proximal femur was then visualized. The femoral neck was then osteotomized appropriate level above the lesser trochanter. Small amount of traction was placed with the Wayne table. A small wedge of bone was then removed from the remaining femoral head. Next, using a corkscrew femoral head was easily removed from the acetabulum. On gross visual inspection, the femoral head had complete loss of articular cartilage in multiple periarticular osteophytes. Attention was then turned to the acetabulum. the acetabulum was exposed and any remaining labrum was excised. Sequential reaming of the acetabulum was performed using fluoroscopic guidance. When the appropriate size was reached, a trial was then placed. The position and fit of the trial was checked with fluoroscopy. The trial was then removed. Then, using fluoroscopic guidance, the final implant was impacted at 20 of anteversion and 40 of abduction, and fully seated in the acetabulum. 2 screws were then placed in the acetabulum. Again fluoroscopy was used to check position of the screws. Next, the liner was then impacted, with a 20 elevated liner located in the anterior superior quadrant. Component locking was confirmed. Attention was then directed to the femur. With the aid of the Wayne table, the femur was externally rotated to approximately 130, extended, and abducted under the opposite leg. A side hook was then placed under the proximal femur, and the side hook elevator was used to elevate the proximal femur. Retractors were then placed. A capsular release was performed, as well as a release of the conjoined tendon, which afforded excellent visualization of the proximal femur. Next, a box osteotome was used to lateralize the proximal femur. A garment sewer hand was then used to locate the femoral canal. Sequential broaching was then performed with appropriate size which afforded excellent fixation in the proximal femur. A trial was then placed with appropriate head and neck, and the hip was gently reduced with the aid of the Wayne table. Fluoroscopy was then used to check position of the components, as well as to ensure equal leg lengths. The hip was then gently dislocated and the trials were then removed. Final implants were then impacted and the hip was again reduced. Final fluoroscopic x-rays confirmed that the components were in anatomic position, as well as equal leg lengths. The hip was also taken through range of motion, and found to be stable. The hip was then copiously irrigated with antibiotic solution with pulsatile lavage. The hip was then irrigated with Irrisept solution. The soft tissues were then injected with a ropivacaine solution, which consisted of 246.25 mg of ropivacaine, 0.5 mg of epinephrine, 30 mg of Toradol, 80 g of clonidine, and 48.45 mL of sterile water, for a total of 100 mL of fluid injected. A second dose of 1 g of Tranexamic acid was also given. the fascia was then closed with 2-0 strata fix suture. The subcutaneous tissue was closed with 3-0 Vicryl. The subcuticular tissue was closed with 3-0 strata fix suture. The skin was then closed with Dermabond glue and a sterile silver dressing. The patient was then transferred to the recovery room in stable condition. The assistant accounting manager SHERYL Phipps was required due to the complexity of surgery, and the need for skilled surgical dental assistant for positioning, draping, exposure, retraction, and closure of the wound.
--- NOTE | 2017-06-08 09:41 | XR ---
EXAMINATION TYPE: XR Hip Limited LT DATE OF EXAM: 06/08/2017 CLINICAL HISTORY: Left hip pain and osteoarthritis. TECHNIQUE: Single AP portable view of left hip is obtained immediately postoperatively. COMPARISON: None. FINDINGS: Metallic hardware from total left hip arthroplasty is seen and appears satisfactory in alig nment and position. There is evidence of recent surgery with subcutaneous gas noted laterally. IMPRESSION: Metallic hardware from left hip arthroplasty is satisfactory in position.
--- NOTE | 2017-06-08 09:41 | FL ---
EXAMINATION TYPE: FL guidance operating room, XR Hip Limited LT DATE OF EXAM: 06/08/2017 CLINICAL HISTORY: Left hip pain osteoarthritis. TECHNIQUE: Fluoroscopy. Limited intraoperative views left hip. COMPARISON: None. FINDINGS: Fluoroscopic guidance was provided during left hip replacement procedure performed by Dr. Monahan. A total of 1.03 minutes of fluoroscopic time was utilized during the procedure and 3 spot intraoperative images are acquired. Images are acquired all from frontal approach show metallic hardware from total left hip arthroplasty that appears satisfactory in position. IMPRESSION: As Above.
[2017-06-08] MEDS: SODIUM CHLORIDE 0.9% 1,000 ML IV SCH (11:13)
[2017-06-08] MEDS: HYDROcodone/APAP 7.5-325MG 1 EACH TAB PO PRN ×2 (12:44→21:38)
[2017-06-08] MEDS ORDERED: GABAPENTIN 100 MG CAP PO PRN (12:47)
[2017-06-08 12:57] VITALS: RESP 16
--- NOTE | 2017-06-08 13:46 | P.CONS ---
History of Present Illness - Reason for Consult Consult date: 06/08/17 Medical management Requesting physician: Wilmar Monahan - Chief Complaint Status post left total hip arthroplasty - History of Present Illness This is a 51-year-old female, patient of [facility]. She has a known past medical history of hypertension and obstructive sleep apnea hypothyroidism iron deficiency anemia and hyperparathyroidism. Patient underwent a left total hip arthroplasty with a direct anterior approach for her severe osteoarthritis of the left hip. Estimated blood loss 175 mL. We've been consulted for medical management. Patient has no new complaints. She denies any chest pain or shortness of breath. Denies any nausea or vomiting. Reports normal bowel movements prior to surgery. And has had no difficulty with urinating. Patient has not urinated yet after surgery. She feels that she will have to urinate soon. Review of Systems Please refer to HPI otherwise unremarkable Past Medical History Past Medical History: Hypertension, Osteoarthritis (OA), Thyroid Disorder Additional Past Medical History / Comment(s): varicose veins, History of Any Multi-Drug Resistant Organisms: None Reported Past Surgical History: Bariatric Surgery, Hysterectomy, Joint Replacement, Orthopedic Surgery, Tonsillectomy Additional Past Surgical History / Comment(s): sinus surgery, bone spur removed from left foot, bariatric sleeve gastrectomy 01-11-17, total left hip, anterior approace 06/08/17 Past Anesthesia/Blood Transfusion Reactions: No Reported Reaction Past Psychological History: No Psychological Hx Reported Smoking Status: Never smoker Past Alcohol Use History: None Reported Past Drug Use History: None Reported - Past Family History Mother Family Medical History: Pulmonary Embolus Father Family Medical History: Cancer Additional Family Medical History / Comment(s): pancreatic cancer Sister(s) Family Medical History: Cancer Additional Family Medical History / Comment(s): colon cancer Medications and Allergies Home Medications Medication Instructions Recorded Confirmed Type Cetirizine HCl [Zyrtec] 10 mg PO HS 10/23/14 06/08/17 History Acetaminophen [Tylenol] 500 mg PO Q6HR PRN 09/02/16 06/08/17 History Gabapentin [Neurontin] 100 - 200 mg PO HS PRN 09/02/16 06/08/17 History Pramipexole [Mirapex] 0.5 mg PO HS 09/02/16 06/08/17 History Baclofen [Lioresal] 20 mg PO HS 11/16/16 06/08/17 History Levothyroxine Sodium 150 mcg PO DAILY 01/06/17 06/08/17 History Omeprazole 40 mg PO DAILY #90 capsule. 01/12/17 06/08/17 Rx Acetaminophen-Codeine 300-30mg 1 tab PO HS 05/28/17 06/08/17 History [Tylenol #3] Ferrous Sulfate [Feosol] 325 mg PO BID 05/28/17 06/08/17 History Multivitamins, Thera [Multivitamin 1 tab PO DAILY 05/28/17 06/08/17 History (formulary)] amLODIPine [Norvasc] 5 mg PO DAILY 05/28/17 06/08/17 History HYDROcodone/APAP 7.5-325MG [Warren 1 tab PO Q6H PRN 06/08/17 06/08/17 History 7.5-325] Allergies Allergy/AdvReac Type Severity Reaction Status Date / Time amoxicillin Allergy Rash/Hives Verified 06/08/17 10:05 erythromycin base Allergy Rash/Hives Verified 06/08/17 10:05 morphine Allergy Nausea & Verified 06/08/17 10:05 Vomiting Morpholine Analogues Allergy Nausea & Verified 06/08/17 10:05 Vomiting Penicillins Allergy Rash/Hives Verified 06/08/17 10:05 Physical Exam Vitals: Vital Signs Temp Pulse Resp BP Pulse Ox 06/08/17 12:45 72 114/64 06/08/17 12:30 71 122/73 06/08/17 12:15 71 125/73 06/08/17 12:00 74 109/56 06/08/17 11:45 75 115/64 06/08/17 11:30 76 101/60 06/08/17 11:15 76 134/68 06/08/17 11:00 97.0 F L 78 16 123/69 100 06/08/17 10:30 69 18 128/62 100 06/08/17 10:15 68 18 130/63 100 06/08/17 10:00 62 14 139/61 100 06/08/17 09:45 65 16 139/61 100 06/08/17 09:30 68 16 131/60 100 06/08/17 09:18 97.7 F 77 16 120/56 98 06/08/17 08:52 97 F L 74 16 123/69 100 06/08/17 06:29 97.8 F 89 16 175/61 100 Intake and Output 06/07/17 06/08/17 06/08/17 22:59 06:59 14:59 Intake Total 100 652 Output Total 175 Balance 100 477 Intake: IV 100 652 Output: Estimated Blood Loss 175 Other: Weight 145.15 kg Patient Weight 06/09/17 06:59 Weight 145.15 kg Head normocephalic Neck supple Lungs clear to auscultation bilaterally no wheezing or crackles Heart regular rate and rhythm S1-S2, no rub or gallop Abdomen is soft nontender nondistended positive bowel sounds no hepatosplenomegaly Extremities no edema. ALEIDA hose in place. Left hip dressing clean dry and intact Neuro alert and orientated to 3 Results CBC & Chem 7: 06/08/17 06:30 Assessment and Plan Assessment: 1. Severe Left hip osteoarthritis: Status post left total hip arthroplasty. Started on Xarelto per orthopedics for DVT prophylaxis 2. Essential hypertension: Blood pressure stable resume Norvasc 3. Hypothyroidism continue Synthroid 4. History of obstructive sleep apnea: Has not been using her sleep apnea at home 5. Iron deficiency anemia: Resume ferrous sulfate 325 mg twice a day 6. Recent diagnosis of hyperparathyroidism: Patient follows a [facility] physician GI prophylaxis Protonix and DVT prophylaxis Xarelto Thank you for this consultation. We will continue to follow along during this patient's hospitalization. We'll check a CBC and BMP in a.m. Time with Patient: Greater than 30 (Greater than 50% of the total time spent in counseling and coordination of care.I performed an examination of the patient and discussed their management with the physician Cable Television Installer. I have reviewed the Physician Cable Television Installer's notes and agree with the documented findings and plan of care)
[2017-06-08 20:40] LABS: Glucose,Whole Blood 169 mg/dL (75-99)
[2017-06-08] MEDS ORDERED: PRAMIPEXOLE 0.5 MG TAB PO SCH (21:00)
[2017-06-08] MEDS ORDERED: SENNOSIDES-DOCUSATE SODIUM 1 EACH TAB PO SCH (21:00)
[2017-06-08] MEDS: FERROUS SULFATE 325 MG TAB PO SCH (21:39)
[2017-06-09] MEDS: SODIUM CHLORIDE 0.9% 1,000 ML IV SCH (04:37)
[2017-06-09] MEDS: LACTATED RINGERS 1,000 ML IV SCH (04:38)
[2017-06-09] MEDS: HYDROcodone/APAP 7.5-325MG 1 EACH TAB PO PRN ×2 (05:00→11:22)
[2017-06-09] MEDS ORDERED: LEVOTHYROXINE 75 MCG TAB PO SCH (06:30)
[2017-06-09] MEDS ORDERED: PANTOPRAZOLE 40 MG TABLET PO SCH (07:30)
[2017-06-09 07:55] VITALS: BP 120/70; PULSE 77; TEMP 98
[2017-06-09 07:57] LABS: Basophils % (A) 0 %; Eosinophils # (A) 0.1 k/uL (0-0.7); Eosinophils % (A) 1 %; Hypochromasia Slight; Lymphocytes # (A) 1.7 k/uL (1.0-4.8); Lymphocytes % (A) 21 %; MCH 27.3 pg (25.0-35.0); MCHC 30.8 g/dL (31.0-37.0); MCV 88.5 fL (80.0-100.0); Mean Platelet Volume 6.9; Monocytes # (A) 0.5 k/uL (0-1.0); Monocytes % (A) 6 %; Neutrophils # (A) 5.8 k/uL (1.3-7.7); Neutrophils % (A) 71 %; Platelet Count 264 k/uL (150-450); RBC 3.73 m/uL (3.80-5.40); RDW 14.8 % (11.5-15.5); WBC 8.1 k/uL (3.8-10.6)
[2017-06-09 07:58] LABS: Anion Gap 9 mmol/L; Blood Urea Nitrogen 26 mg/dL (7-17); Calcium 9.4 mg/dL (8.4-10.2); Carbon Dioxide 26 mmol/L (22-30); Chloride 107 mmol/L (98-107); Glucose 109 mg/dL (74-99); Potassium 4.4 mmol/L (3.5-5.1); Sodium 142 mmol/L (137-145)
[2017-06-09 08:00] LABS: HGB 10.2 gm/dL (11.4-16.0)
--- NOTE | 2017-06-09 08:32 | P.DS ---
Providers Date of admission: 06/08/17 05:59 Expected date of discharge: 06/09/17 Attending physician: Wilmar Monahan Consults: 06/08/17 07:04 Consult Physician Routine Consulting Provider: Mack Hargrove Consult Reason/Comments: medical management Do you want consulting provider notified?: Yes Primary care physician: Sue Alfaro - Discharge Diagnosis(es) (1) Primary osteoarthritis of left hip Current Visit: Yes Status: Acute (2) S/P total hip arthroplasty Current Visit: Yes Status: Acute Hospital Course: This is a 51-year-old female with known history of degenerative arthritis of the left hip. The patient presents for evaluation. After discussion and consideration patient elects to proceed with total hip arthroplasty. The patient is seen preoperatively by Dr. Monahan and cleared for surgery. Patient is [facility] 06/08/2018 for total hip arthroplasty. The procedures performed without complication or sequelae. The patient is doing well postoperatively. Labs and vital signs are stable on day of discharge. On day of discharge patient's hip incision is healing well. There is minimal erythema. There is no drainage noted at this time. There is minimal soft tissue swelling to the hip and thigh. Patient has full foot and ankle motion without difficulty or pain. Neurovascular status to the left lower extremity is intact. Patient is discharged home in good condition. Please see med rec for accurate list of home medications. Plan - Discharge Summary Discharge Rx Participant: Yes New Discharge Prescriptions: New Rivaroxaban [Xarelto] 10 mg PO DAILY #35 tab HYDROcodone/APAP 7.5-325MG [Butner 7.5-325] 1 - 2 tab PO Q4-6H PRN #90 tab PRN Reason: Pain Sennosides [Senokot] 1 tab PO BID #60 tablet No Action Cetirizine HCl [Zyrtec] 10 mg PO HS Acetaminophen [Tylenol] 500 mg PO Q6HR PRN PRN Reason: Pain Gabapentin [Neurontin] 100 - 200 mg PO HS PRN PRN Reason: Pain Pramipexole [Mirapex] 0.5 mg PO HS Baclofen [Lioresal] 20 mg PO HS Levothyroxine Sodium 150 mcg PO DAILY Omeprazole 40 mg PO DAILY #90 capsule. Multivitaminjim Thera [Multivitamin (formulary)] 1 tab PO DAILY Ferrous Sulfate [Feosol] 325 mg PO BID Acetaminophen-Codeine 300-30mg [Tylenol #3] 1 tab PO HS amLODIPine [Norvasc] 5 mg PO DAILY HYDROcodone/APAP 7.5-325MG [Butner 7.5-325] 1 tab PO Q6H PRN PRN Reason: Pain Discharge Medication List Cetirizine HCl [Zyrtec] 10 mg PO HS 10/23/14 [History] Acetaminophen [Tylenol] 500 mg PO Q6HR PRN 09/02/16 [History] Gabapentin [Neurontin] 100 - 200 mg PO HS PRN 09/02/16 [History] Pramipexole [Mirapex] 0.5 mg PO HS 09/02/16 [History] Baclofen [Lioresal] 20 mg PO HS 11/16/16 [History] Levothyroxine Sodium 150 mcg PO DAILY 01/06/17 [History] Omeprazole 40 mg PO DAILY #90 capsule. 01/12/17 [Rx] Acetaminophen-Codeine 300-30mg [Tylenol #3] 1 tab PO HS 05/28/17 [History] Ferrous Sulfate [Feosol] 325 mg PO BID 05/28/17 [History] Multivitamins, Thera [Multivitamin (formulary)] 1 tab PO DAILY 05/28/17 [History ] amLODIPine [Norvasc] 5 mg PO DAILY 05/28/17 [History] HYDROcodone/APAP 7.5-325MG [Butner 7.5-325] 1 tab PO Q6H PRN 06/08/17 [History] HYDROcodone/APAP 7.5-325MG [Butner 7.5-325] 1 - 2 tab PO Q4-6H PRN #90 tab [Rx] Rivaroxaban [Xarelto] 10 mg PO DAILY #35 tab 06/09/17 [Rx] Sennosides [Senokot] 1 tab PO BID #60 tablet 06/09/17 [Rx] Follow up Appointment(s)/Referral(s): Wilmar Monahan DO [Doctor of Osteopathic Medicine] - 2 Weeks Activity/Diet/Wound Care/Special Instructions: Weightbearing as tolerated with walker Leave dressing intact. Dressing may be removed by home care nurse in 10 days, 06/15/2017. May shower with dressing on. Follow-up with [facility] in 2 weeks, please call with any questions or concerns [phone] Discharge Disposition: HOME WITH HOME HEALTH SERVICES
[2017-06-09] MEDS: FERROUS SULFATE 325 MG TAB PO SCH (08:35)
[2017-06-09] MEDS ORDERED: RIVAROXABAN 10 MG TAB PO SCH (09:00)
[2017-06-09] MEDS ORDERED: amLODIPine 5 MG TAB PO SCH (09:00)
--- NOTE | 2017-06-09 11:13 | P.PN ---
Subjective Progress Note Date: 06/09/17 This is a 51-year-old female, patient of [facility]. She has a known past medical history of hypertension and obstructive sleep apnea hypothyroidism iron deficiency anemia and hyperparathyroidism. Patient underwent a left total hip arthroplasty with a direct anterior approach for her severe osteoarthritis of the left hip. Estimated blood loss 175 mL. We've been consulted for medical management. Patient has no new complaints. She denies any chest pain or shortness of breath. Denies any nausea or vomiting. Reports normal bowel movements prior to surgery. And has had no difficulty with urinating. Patient has not urinated yet after surgery. She feels that she will have to urinate soon. On 06/09/2017 patient is alert and oriented 3 in no apparent distress he denies any fever or chills no headache or dizziness no chest pain or shortness of breath no cough no palpitation no nausea or vomiting no abdominal pain and no urinary symptoms cleared for discharge by orthopedic surgery. Objective - Vital Signs Vital signs: Vital Signs Temp 98 F 06/09/17 07:53 Pulse 77 06/09/17 07:53 Resp 16 06/09/17 07:53 BP 120/70 06/09/17 07:53 Pulse Ox 100 06/09/17 07:53 Intake & Output 06/08/17 06/09/17 06/09/17 18:59 06:59 18:59 Intake Total 857 1150 Output Total 775 Balance 82 1150 Weight 145.15 kg Intake: IV 857 Sodium Chloride 0.9% 1, 205 000 ml @ 65 mls/hr IV . [id number] NIXON Rx#:[id number] Intake, IV Titration 650 Amount Sodium Chloride 0.9% 1, 650 000 ml @ 65 mls/hr IV . [id number] NIXON Rx#:[id number] Oral 500 Output: Urine 600 Estimated Blood Loss 175 Other: # Voids 1 1 - Exam Head normocephalic and atraumatic Neck supple no JVD no goiter no lymphadenopathy Lungs clear to auscultation bilaterally no wheezing or crackles Heart regular rate and rhythm S1-S2, no rub or gallop Abdomen is soft nontender nondistended positive bowel sounds no hepatosplenomegaly Extremities no edema. ALEIDA hose in place. Left hip dressing clean dry and intact Neuro alert and orientated to 3 - Labs CBC & Chem 7: 06/09/17 07:10 06/09/17 07:10 Labs: Abnormal Lab Results - Last 24 Hours (Table) 06/08/17 06/09/17 06/09/17 Range/Units 20:35 07:10 07:10 RBC 3.73 L (3.80-5.40) m/uL Hgb 10.2 L (11.4-16.0) gm/dL Hct 33.0 L (34.0-46.0) % MCHC 30.8 L (31.0-37.0) g/dL BUN 26 H (7-17) mg/dL Glucose 109 H (74-99) mg/dL POC Glucose (mg/dL) 169 H (75-99) mg/dL Assessment and Plan Plan: 1. Severe Left hip osteoarthritis: Status post left total hip arthroplasty. Started on Xarelto per orthopedics for DVT prophylaxis 2. Essential hypertension: Blood pressure stable resume Norvasc 3. Hypothyroidism continue Synthroid 4. History of obstructive sleep apnea: Has not been using her sleep apnea at home 5. Iron deficiency anemia: Resume ferrous sulfate 325 mg twice a day 6. Recent diagnosis of hyperparathyroidism: Patient follows a [facility] physician GI prophylaxis Protonix and DVT prophylaxis Xarelto Patient will be discharged home today by orthopedic surgery She will be continued on her same home medication in addition to Xarelto She will follow-up with her primary care physician Dr. Sue Alfaro within one week
[2017-06-09] MEDS ORDERED: MULTIVITAMINS, THERA 1 EACH TAB PO SCH (12:00)
== END 2017-06-09 12:50 | disposition home health service (06) | DRG 470 ==
LOC: 2ORMAIN 05:59 → 3SUR 09:27
PROVIDERS: ADMIT Orthopaedic Surgery; ATTEND Orthopaedic Surgery
PROC: 30233N0 Transfusion of Autologous Red Blood Cells into Peripheral Vein, Percutaneous Approach (ICD-10-PCS; 2017-06-08)
PROC: 0SRB06A Replacement of Left Hip Joint with Oxidized Zirconium on Polyethylene Synthetic Substitute, Uncemented, Open Approach (ICD-10-PCS; principal; 2017-06-08 07:30)
DX: M16.12 Unilateral primary osteoarthritis, left hip (principal); D50.9 Iron deficiency anemia, unspecified; E03.9 Hypothyroidism, unspecified; I10 Essential (primary) hypertension; M25.752 Osteophyte, left hip; R26.9 Unspecified abnormalities of gait and mobility; G47.33 Obstructive sleep apnea (adult) (pediatric); K21.9 Gastro-esophageal reflux disease without esophagitis; E21.3 Hyperparathyroidism, unspecified; Z79.899 Other long term (current) drug therapy; Z88.1 Allergy status to other antibiotic agents; Z88.0 Allergy status to penicillin; Z90.710 Acquired absence of both cervix and uterus; Z90.89 Acquired absence of other organs; Z98.84 Bariatric surgery status; Z86.79 Personal history of other diseases of the circulatory system; Z80.0 Family history of malignant neoplasm of digestive organs; Z79.891 Long term (current) use of opiate analgesic; Z88.8 Allergy status to other drugs, medicaments and biological substances; Z91.19 Patient's noncompliance with other medical treatment and regimen
CPT/HCPCS: 73501; 80048; 84132; 85025; 86850; 86891; 86900; 86901; 88300

== ENCOUNTER → 2017-07-28 | Outpatient (CLI) | payer BC ==
[2017-07-28 14:17] VITALS: BP 136/82; PULSE 90; RESP 16; TEMP 97.6; BMI 47.2
[2017-07-28 15:40] LABS: HCT 40.5 % (34.0-46.0); HGB 12.7 gm/dL (11.4-16.0); Hypochromasia Slight; MCHC 31.3 g/dL (31.0-37.0); MCV 86.1 fL (80.0-100.0); Platelet Count 384 k/uL (150-450); RBC 4.71 m/uL (3.80-5.40); RDW 14.3 % (11.5-15.5); WBC 10.2 k/uL (3.8-10.6)
[2017-07-28 15:59] LABS: ALT 26 U/L (9-52); AST 21 U/L (14-36); Albumin 4.7 g/dL (3.5-5.0); Alkaline Phosphatase 109 U/L (38-126); Anion Gap 19 mmol/L; Blood Urea Nitrogen 32 mg/dL (7-17); Calcium 10.9 mg/dL (8.4-10.2); Carbon Dioxide 24 mmol/L (22-30); Chloride 102 mmol/L (98-107); Cholesterol 215 mg/dL (<200); Glucose 108 mg/dL (74-99); HDL Cholesterol 64 mg/dL (40-60); LDL Cholesterol,Calculated 136 mg/dL (0-99); Phosphorus 4.3 mg/dL (2.5-4.5); Sodium 145 mmol/L (137-145); Total Bilirubin 0.4 mg/dL (0.2-1.3); Total Protein 8.5 g/dL (6.3-8.2); Triglycerides 77 mg/dL (<150)
[2017-07-28 16:57] LABS: Partial Thromboplastin Time 23.5 sec (22.0-30.0); Prothrombin Time 9.8 sec (9.0-12.0)
[2017-07-28 19:09] LABS: Iron Saturation 10.13 (12.00-45.00)
[2017-07-28 19:19] LABS: Vitamin D 25 Hydroxy 35.5 ng/mL (30.0-100.0)
[2017-07-28 19:25] LABS: Folate, Serum >24.0 ng/mL
[2017-07-28 19:35] LABS: Parathyroid Hormone Intact 73.5 pg/mL (14.0-72.0)
[2017-07-28 20:54] LABS: Hemoglobin A1C 4.6 % (4.0-6.0)
[2017-07-29 15:49] LABS: Zinc, Serum 70 ug/dL (60-130)
[2017-07-30 05:48] LABS: Vitamin A 60 ug/dL (38-106)
[2017-07-30 09:59] LABS: Vitamin B1 68 ug/L (38-122)
== END | disposition home or self-care (01) ==
LOC: BARWHC3 13:20
PROVIDERS: ATTEND Surgery Plastic and Reconstructive Surgery
DX: E66.01 Morbid (severe) obesity due to excess calories (principal); E21.1 Secondary hyperparathyroidism, not elsewhere classified; E78.1 Pure hyperglyceridemia; D50.9 Iron deficiency anemia, unspecified; K90.9 Intestinal malabsorption, unspecified; E55.9 Vitamin D deficiency, unspecified; K74.1 Hepatic sclerosis; N19 Unspecified kidney failure; K50.90 Crohn's disease, unspecified, without complications; Z68.42 Body mass index [BMI] 45.0-49.9, adult; Z71.3 Dietary counseling and surveillance
CPT/HCPCS: 36415; 80053; 80061; 82306; 82525; 82607; 82728; 82746; 83036; 83540; 83550; 83735; 83970; 84100; 84134; 84255; 84425; 84443; 84590; 84630; 85027; 85610; 85730; 97803; 99211

== ENCOUNTER → 2017-09-09 | Outpatient (CLI) | payer BC ==
--- NOTE | 2017-09-09 11:17 | BD ---
EXAMINATION TYPE: Axial Bone Density DATE OF EXAM: 09/09/2017 Comparison: Prior DEXA bone scan June 08, 2016. CLINICAL HISTORY: Postmenopausal female Height: 69 inches Weight: 318 FRAX RISK QUESTIONS: Alcohol (3 or more units per day): no Family History (Parent hip fracture): no Glucocorticoids (More than 3mos): no (Ex: prednisone, prednisolone, methylprednisolone, dexamethasone, and hydrocortisone). History of Fracture in Adulthood: yes, ankle Secondary Osteoporosis: 1. Type 1 Diabetes: no 2. Hyperthyroidism: no 3. Menopause before 45: no 4. Malnutrition: no 5. Chronic liver disease: no Rheumatoid Arthritis: no Current Tobacco Use: no RISK FACTORS HISTORY OF: Surgery to Hip(left): yes When: April 2017 Family History of Osteoporosis: no Active: somewhat Diet low in dairy products/other sources of calcium: no Postmenopausal woman: yes (total hysterectomy age 47) Take estrogen and/or progesterone medications: no Lost more than 2 inches in height since high school: no Frequent falls: no Poor Health: no Hyperparathyroidism: in process of checking Adrenal Insufficiency: no MEDICATIONS: Prednisone or other steroids: no Thyroid Medications: yes Which medication: Levothyroxine How Long: since 1988 Osteoporosis Medications: no Additional Medications: multivitamin , blood pressure Additional History: calcium is high, as is parathyroid hormone EXAM MEASUREMENTS: Bone mineral densitometry was performed using the [employer]. Bone mineral density as measured about the Lumbar spine is: ----- L1-L4(G/cm2): 0.968 T Score Values are as follows: ----- L2: -2.0 ----- L3: -1.4 ----- L4: -2.0 ----- L1-L4: -1.8 Bone mineral density has: Increased 2.4% since study of: 06/08/2016 Bone mineral density about the R hip (g/cm2): 0.820 T Score values are as follows: -----R Neck: -1.6 -----R Total: -1.0 Bone mineral density has: Decreased -6.8% since study of: 06/08/2016 IMPRESSION: Osteopenia (T Score between -2.5 and -1) persists in the low back and right hip. There remains slightly increased risk of fracture and the patient may be considered for treatment. Re-Screen 2-5 years. NOTE: T-SCORE=SD OF THE YOUNG ADULT MEAN.
== END | disposition home or self-care (01) ==
LOC: RADBDWWP 07:09
PROVIDERS: ATTEND Family Medicine
DX: M85.851 Other specified disorders of bone density and structure, right thigh (principal); M85.88 Other specified disorders of bone density and structure, other site; Z78.0 Asymptomatic menopausal state
CPT/HCPCS: 77080

== ENCOUNTER → 2017-09-25 | Outpatient (CLI) | payer BC ==
[2017-09-25 08:47] LABS: Basophils % (A) 1 %; Eosinophils # (A) 0.2 k/uL (0-0.7); Eosinophils % (A) 4 %; HCT 40.7 % (34.0-46.0); HGB 12.4 gm/dL (11.4-16.0); Hypochromasia Slight; Lymphocytes # (A) 1.7 k/uL (1.0-4.8); Lymphocytes % (A) 25 %; MCHC 30.6 g/dL (31.0-37.0); MCV 84.9 fL (80.0-100.0); Monocytes # (A) 0.3 k/uL (0-1.0); Monocytes % (A) 5 %; Neutrophils # (A) 4.4 k/uL (1.3-7.7); Neutrophils % (A) 65 %; Platelet Count 292 k/uL (150-450); RBC 4.79 m/uL (3.80-5.40); RDW 15.1 % (11.5-15.5); WBC 6.8 k/uL (3.8-10.6)
[2017-09-25 09:07] LABS: ALT 34 U/L (9-52); AST 23 U/L (14-36); Albumin 4.1 g/dL (3.5-5.0); Alkaline Phosphatase 97 U/L (38-126); Anion Gap 11 mmol/L; Blood Urea Nitrogen 26 mg/dL (7-17); Calcium 10.4 mg/dL (8.4-10.2); Carbon Dioxide 28 mmol/L (22-30); Chloride 105 mmol/L (98-107); Glucose 101 mg/dL (74-99); Potassium 5.3 mmol/L (3.5-5.1); Sodium 144 mmol/L (137-145); Total Bilirubin 0.4 mg/dL (0.2-1.3); Total Protein 7.3 g/dL (6.3-8.2)
== END | disposition home or self-care (01) ==
LOC: LABPAT 08:13
PROVIDERS: ATTEND Surgery Plastic and Reconstructive Surgery
DX: Z01.818 Encounter for other preprocedural examination (principal); Z01.812 Encounter for preprocedural laboratory examination
CPT/HCPCS: 36415; 80053; 85025; 93005

== ENCOUNTER 2017-10-04 06:04 | Day surgery (SDC) | payer BC ==
[2017-09-27 09:24] VITALS: BMI 47.2
--- NOTE | 2017-10-03 19:01 | P.GSHP ---
History of Present Illness H&P Date: 10/04/17 CHIEF COMPLAINT: Incisional hernia. HISTORY OF PRESENT ILLNESS: The patient is a 52-year-old female who presents with a history of swelling along the upper abdomen. Findings were consistent with possible ventral hernia. Now she presents for further evaluation and management. PAST MEDICAL HISTORY: Please see list. PAST SURGICAL HISTORY: Please see list. MEDICATIONS: Please see list. ALLERGIES: Please see list. SOCIAL HISTORY: No illicit drug use FAMILY HISTORY: No reports of Crohn disease or ulcerative colitis. REVIEW OF ORGAN SYSTEMS: CONSTITUTIONAL: No reports of fevers or chills. GI: Denies any blood in stools or constipation. PHYSICAL EXAM: VITAL SIGNS: Stable GENERAL: Well-developed pleasant female in no acute distress. HEENT: No scleral icterus. Extraocular movements grossly intact. Moist buccal mucosa. NECK: Supple without lymphadenopathy. CHEST: Unlabored respirations. Equal bilateral excursions. CARDIOVASCULAR: Regular rate and rhythm. Distal 2+ pulses. ABDOMEN: Soft, nondistended. Swelling along the upper abdomen. Protuberant. MUSCULOSKELETAL: No clubbing, cyanosis, or edema. ASSESSMENT: 1. Ventral hernia. 2. Morbid obesity due to excess calories, BMI 45.2 PLAN: 1. Recommend proceeding with robotic ventral hernia repair with mesh. 2. Benefits and risks of surgical intervention was discussed including possibility of open technique. 3. DVT prophylaxis. 4. Antibiotic prophylaxis. Past Medical History Past Medical History: Hypertension, Osteoarthritis (OA), Thyroid Disorder Additional Past Medical History / Comment(s): varicose veins, RLS., low iron., incisional hernia., occasional left hip pain. History of Any Multi-Drug Resistant Organisms: None Reported Past Surgical History: Bariatric Surgery, Hysterectomy, Joint Replacement, Orthopedic Surgery, Tonsillectomy Additional Past Surgical History / Comment(s): sinus surgery, bone spur removed from left foot, bariatric sleeve gastrectomy 01-11-17, total left hip, anterior approace 06/13. Past Anesthesia/Blood Transfusion Reactions: No Reported Reaction Past Psychological History: No Psychological Hx Reported Smoking Status: Never smoker Past Alcohol Use History: None Reported Past Drug Use History: None Reported - Past Family History Mother Family Medical History: Pulmonary Embolus Father Family Medical History: Cancer Additional Family Medical History / Comment(s): pancreatic cancer Sister(s) Family Medical History: Cancer Additional Family Medical History / Comment(s): colon cancer Medications and Allergies Home Medications Medication Instructions Recorded Confirmed Type Cetirizine HCl [Zyrtec] 10 mg PO HS 10/23/14 09/27/17 History Acetaminophen [Tylenol] 500 mg PO Q6HR PRN 09/02/16 09/27/17 History Pramipexole [Mirapex] 0.5 mg PO HS 09/02/16 09/27/17 History Baclofen [Lioresal] 20 mg PO HS 11/16/16 09/27/17 History Levothyroxine Sodium 150 mcg PO DAILY 01/06/17 09/27/17 History Omeprazole 40 mg PO DAILY #90 capsule. 01/12/17 09/27/17 Rx Ferrous Sulfate [Feosol] 325 mg PO BID 05/28/17 09/27/17 History Multivitamins, Thera [Multivitamin 1 tab PO DAILY 05/28/17 09/27/17 History (formulary)] amLODIPine [Norvasc] 5 mg PO DAILY 05/28/17 09/27/17 History Gabapentin [Neurontin] 100 mg PO HS PRN 09/27/17 09/27/17 History Allergies Allergy/AdvReac Type Severity Reaction Status Date / Time amoxicillin Allergy Rash/Hives Verified 09/27/17 09:01 erythromycin base Allergy Rash/Hives Verified 09/27/17 09:01 morphine Allergy Nausea & Verified 09/27/17 09:01 Vomiting Morpholine Analogues Allergy Nausea & Verified 09/27/17 09:01 Vomiting Penicillins Allergy Rash/Hives Verified 09/27/17 09:01
[~2017-10-04 06:04] MED LIST changes: -ACETAMINOPHEN TAB 500 MG TAB PO ONE; +HEPARIN SODIUM,PORCINE 5,000 UNIT/ML 1 ML VIAL SQ ONE; +HYDROmorphone 0.5 MG/0.5 ML SYRINGE IVP PRN; +LACTATED RINGERS 1,000 ML IV SCH; +LIDOCAINE 1% 20 ML VIAL (10MG/ML) FOR IV START INTRADERMA PRN; -MELOXICAM 7.5 MG TAB PO ONE; +ONDANSETRON 4 MG/2 ML VIAL IVP PRN; +SCOPOLAMINE 1.5MG/72HR PATCH TRANSDERM STA; -TRANEXAMIC ACID 1,000 MG in SODIUM CHLORIDE 0.9% 50 ML IVPB ONE
[2017-10-04] MEDS ORDERED: ACETAMINOPHEN IV (For NPO) 1,000 MG in EMPTY BAG 1 BAG IVPB ONE (06:30)
[2017-10-04] MEDS ORDERED: IBUPROFEN IV 400 MG in SODIUM CHLORIDE 0.9% 250 ML IV ONE (06:30)
[2017-10-04] MEDS: LACTATED RINGERS 1,000 ML IV SCH ×2 (07:08→07:50)
[2017-10-04] MEDS ORDERED: SUCCINYLCHOLINE CHLORIDE 100 MG/5 ML SYR IV ONE (07:46)
[2017-10-04] MEDS ORDERED: ROCURONIUM BROMIDE 10 MG/ML 10 ML VIAL IV ONE (07:46)
[2017-10-04] MEDS ORDERED: NEOSTIGMINE 1 MG/ML 10 ML VIAL ONE (07:46)
[2017-10-04] MEDS ORDERED: fentaNYL (PF) 50 MCG/ML 2 ML AMP ONE (07:46)
[2017-10-04] MEDS ORDERED: ROPIVACAINE 5 MG/ML 30 ML VIAL ONE (07:46)
[2017-10-04] MEDS ORDERED: GLYCOPYRROLATE 0.2 MG/ML 2 ML VIAL ONE (07:46)
[2017-10-04] MEDS ORDERED: BUPIVACAINE (PF) 0.5% 30 ML VIAL SQ ONE (08:13)
[2017-10-04] MEDS ORDERED: LACTATED RINGERS 1,000 ML IV ONE (09:28)
--- NOTE | 2017-10-04 10:32 | P.PCN ---
Date of Procedure: 10/04/17 Preoperative Diagnosis: History of ventral hernia, epigastric swelling Postoperative Diagnosis: Incarcerated initial ventral hernia 6 x 6 cm involving omentum and transverse colon, peritoneal adhesions Procedure(s) Performed: Robot-assisted lysis of adhesions over 1.5 hours, robotic-assisted repair of incarcerated initial ventral hernia 6 x 6 cm with 10 x [address] mesh Implants: Ventralight ST mesh 10 x 15 cm, Anesthesia: GETA, local Surgeon: Stephany Ornelas Estimated Blood Loss (ml): 5 Pathology: none sent Condition: stable Disposition: same day Operative Findings: 1. Incarcerated initial ventral hernia 6 x 6 cm involving omentum and transverse mesocolon 2. Extensive lysis of adhesions 1.5 hours reduction of hernia 3. Ventral hernia unrelated to previous surgeries
[2017-10-04 10:36] VITALS: TEMP 98.4
[2017-10-04 10:48] VITALS: RESP 16
[2017-10-04 11:31] VITALS: BP 133/62; PULSE 77
[2017-10-04] MEDS ORDERED: HYDROcodone/APAP 7.5-325MG 1 EACH TAB PO ONE (11:40)
--- NOTE | 2017-10-04 14:06 | P.ONQ ---
Anesthesiology Proc Note - PNB - Peripheral Nerve Block Performed Right Transversus Abdominis Time Out Performed: Yes (07:03) Indication: Acute Post-Operative Pain, Requested by physician (Lance) Sedation Type: Sedate with meaningful contact maintained Preparation: Sterile Prep Position: Supine Catheter: None Needle Types: Other (see comment) (Pushpa) Needle Size: 100mm (4") Needle Gauge: 21 Technique: Ultrasound (0.5% Ropivacaine 10cc, Normal Saline 10cc) Blood Aspirated: No Pain Paresthesia on Injection Noted: No Resistance on Injection: Normal Events: Uneventful and Well Tolerated
--- NOTE | 2017-10-08 15:58 | P.OP ---
Date of Procedure: 10/04/17 Description of Procedure: Date of Procedure: 10/04/17 SURGEON: SPARKLE DUMONT MD PREOPERATIVE DIAGNOSES: 1. Incarcerated initial ventral hernia, epigastrium 2. Morbid obesity due to excess calories. 3. Body mass index of 58.0 to 47.5 4. Hypothyroidism. 5. Obstructive sleep apnea. 6. Status post sleeve gastrectomy. 7. Iron deficiency. POSTOPERATIVE DIAGNOSES: 1. Incarcerated initial ventral hernia 6 x 6 cm involving omentum and transverse colon 1. Incarcerated initial ventral hernia, epigastrium 2. Morbid obesity due to excess calories. 3. Body mass index of 58.0 to 47.5 4. Hypothyroidism. 5. Obstructive sleep apnea. 6. Status post sleeve gastrectomy. 7. Iron deficiency. 8. Severe intra-abdominal adhesions involving transverse colon to the abdominal wall OPERATION: 1. Robotic-assisted da Brittany Xi laparoscopic extensive lysis of adhesions over 1.5 hours 2. Robotic-assisted da Brittany Xi laparoscopic repair of initial 6 x 6 cm incarcerated ventral hernia with mesh, ventralight ST mesh 10 x 15 cm Implants: Ventralight ST mesh 10 x 15 cm Anesthesia: GETA, local Estimated Blood Loss (ml): 5 Pathology: none sent Condition: stable Disposition: same day COMPLICATIONS: None. Operative Findings: 1. Incarcerated initial ventral hernia 6 x 6 cm involving omentum and transverse mesocolon 2. Extensive lysis of adhesions 1.5 hours reduction of hernia 3. Ventral hernia unrelated to previous bariatric procedure 4. Console time 104 minutes INDICATIONS: The patient is a 52-year-old female who presents with swelling of the epigastrium. Surgical intervention with laparoscopic versus robotic and open techniques were reviewed. Placement of mesh was also reviewed. Benefits and risks were thoroughly described. Informed consent was obtained. DESCRIPTION OF PROCEDURE: The patient was brought into the operating room and laid in supine position. After general induction, the abdomen had been prepped and draped in standard sterile fashion. Ioban draping was also placed. Prior to incision, a timeout protocol was confirmed with surgical team regarding the patient's name including procedures to be performed. The robot was primed prior to the procedure. A field block using local anesthetic was placed along hernia site including the proposed port sites. Initial incision was made with a #11 blade along the left upper quadrant. A 0 degree 5 mm laparoscopic trocar entry was performed. Diagnostic laparoscopy demonstrated moderate peritoneal adhesions involving an incarcerated epigastric ventral hernia. The transverse meso-colon and greater omentum were incarcerated. Three robotic 8-mm ports were placed along the left lateral abdominal wall as the 5-mm port of the left upper quadrant was exchanged. Placements of the ports were 15 cm from the target anatomy and approximately 10 cm apart. The da Brittany Xi robot was previously primed, prepped and draped then docked along the left side of the patient. I then sat at the robot Da Brittany Xi console where working arms of the robot including Bovie cautery connected to robotic scissors, needle tow driver, vessel sealer and graspers were exchanged by the transport assistant. She had very dense adhesions of the epigastrium involving the greater omentum and transverse colon. Extensive lysis of adhesions occurred over 1.5 hours occurred to reduce the transverse colon from the abdominal wall without colotomies. The fascial defect of 6 x 6 cm was identified. The incarcerated contents was reduced. The hernia defect was oversewn using #1 Stratafix with fascial imbrication x 3 to close and reinforce the defect. Insufflation was adjusted down to 8 mmHg pressure to accommodate repair. Next, ventralight ST mesh 10 x 15 cm was placed with the rough side towards the abdominal wall. 2-0 VLOC 9 inch sutures were used to fixate the mesh. A final endoscopic imaging was obtained. All instruments and pneumoperitoneum were evacuated from the abdominal cavity. The da Brittany Xi robot was undocked from the patient. I re-scrubbed into the case for closure of incisions. The incisions were re-approximated using 4-0 Monocryl in an interrupted subcuticular fashion. Liquid glue was applied to the skin after cleansing the skin with normal saline and dilute hydrogen peroxide. An abdominal binder was placed. At the end of the procedure, needle, sponge, and instrument count had been verified correct by surgical scheduler. The patient was taken to the postanesthesia care unit in stable condition.
== END 2017-10-04 12:57 | disposition home or self-care (01) ==
LOC: OR 06:04
PROVIDERS: ATTEND Surgery Plastic and Reconstructive Surgery
DX: K43.6 Other and unspecified ventral hernia with obstruction, without gangrene (principal); K66.0 Peritoneal adhesions (postprocedural) (postinfection)
CPT/HCPCS: 49653; S2900; 84132; 86850; 86900; 86901

== ENCOUNTER 2017-10-11 16:14 | Emergency (ER) | payer BC ==
--- NOTE | 2017-10-11 17:19 | ED ---
General Adult HPI - General Chief complaint: Extremity Problem,Nontraumatic Stated complaint: Post Op Leg swelling/pain Time Seen by Provider: 10/11/17 16:38 Source: patient, RN notes reviewed Mode of arrival: ambulatory Limitations: no limitations - History of Present Illness Initial comments: Patient 52-year-old female status post hernia repair times a week, presenting to the emergency room today with a chief complaint of some mild discomfort to the right lower calf. Patient states that notices this point. Admits that she' s also noticed an area of redness to the right side. She denies any tenderness in this area. Denies any other complaints or symptoms. Patient denies any recent fever, chills, shortness of breath, chest pain, back pain, nausea or vomiting, numbness or tingling, dysuria or hematuria, constipation or diarrhea, headaches or visual changes, or any other complaints. - Related Data Home Medications Medication Instructions Recorded Confirmed Cetirizine HCl [Zyrtec] 10 mg PO DAILY 10/23/14 10/11/17 Acetaminophen [Tylenol] 500 mg PO Q6HR PRN 09/02/16 10/11/17 Pramipexole [Mirapex] 0.5 mg PO HS 09/02/16 10/11/17 Baclofen [Lioresal] 20 mg PO HS 11/16/16 10/11/17 Levothyroxine Sodium 150 mcg PO DAILY 01/06/17 10/11/17 Ferrous Sulfate [Feosol] 325 mg PO BID 05/28/17 10/11/17 Multivitamins, Thera [Multivitamin 1 tab PO DAILY 05/28/17 10/11/17 (formulary)] amLODIPine [Norvasc] 5 mg PO DAILY 05/28/17 10/11/17 Gabapentin [Neurontin] 100 mg PO HS PRN 09/27/17 10/11/17 Previous Rx's Medication Instructions Recorded Omeprazole 40 mg PO DAILY #90 capsule. 01/12/17 Sulfamethox-Tmp 800-160Mg [Bactrim 1 tab PO Q12HR #20 tab 10/11/17 DS 800-160 mg] Allergies Allergy/AdvReac Type Severity Reaction Status Date / Time amoxicillin Allergy Rash/Hives Verified 10/11/17 16:42 erythromycin base Allergy Rash/Hives Verified 10/11/17 16:42 morphine Allergy Nausea & Verified 10/11/17 16:42 Vomiting Morpholine Analogues Allergy Nausea & Verified 10/11/17 16:42 Vomiting Penicillins Allergy Rash/Hives Verified 10/11/17 16:42 Review of Systems ROS Statement: Those systems with pertinent positive or pertinent negative responses have been documented in the HPI. ROS Other: All systems not noted in ROS Statement are negative. Past Medical History Past Medical History: Hypertension, Osteoarthritis (OA), Thyroid Disorder Additional Past Medical History / Comment(s): varicose veins, RLS., low iron., incisional hernia., occasional left hip pain. History of Any Multi-Drug Resistant Organisms: None Reported Past Surgical History: Bariatric Surgery, Hernia Repair, Hysterectomy, Joint Replacement, Orthopedic Surgery, Tonsillectomy Additional Past Surgical History / Comment(s): sinus surgery, bone spur removed from left foot, bariatric sleeve gastrectomy 01-11-17, total left hip, anterior approace 06/13. Past Anesthesia/Blood Transfusion Reactions: No Reported Reaction Past Psychological History: No Psychological Hx Reported Smoking Status: Never smoker Past Alcohol Use History: None Reported Past Drug Use History: None Reported - Past Family History Mother Family Medical History: Pulmonary Embolus Father Family Medical History: Cancer Additional Family Medical History / Comment(s): pancreatic cancer Sister(s) Family Medical History: Cancer Additional Family Medical History / Comment(s): colon cancer General Exam - General Exam Comments Initial Comments: General: The patient is awake and alert, in no distress, and does not appear acutely ill. Eye: Pupils are equal, round and reactive to light, extra-ocular movements are intact. No nystagmus. There is normal conjunctiva bilaterally. No signs of icterus. Ears, nose, mouth and throat: There are moist mucous membranes and no oral lesions. Neck: The neck is supple, there is no tenderness or JVD. Musculoskeletal: Normal ROM, no tenderness. Strength 5/5. Sensation intact. Pulses equal bilaterally 2+. Neurological: A&O x 3. CN II-XII intact, There are no obvious motor or sensory deficits. Coordination appears grossly intact. Speech is normal. Skin: Area of mild redness to the right lower extremity approximately to the right knee from the medial aspect. Psychiatric: Cooperative, appropriate mood & affect, normal judgment. Limitations: no limitations Course Vital Signs 06/18/18 16:24 Temperature 97.9 F Pulse Rate 90 Respiratory 20 Rate Blood Pressure 159/89 O2 Sat by Pulse 100 Oximetry Medical Decision Making - Medical Decision Making Patient's ultrasound reviewed is negative for any evidence of DVT. Results were discussed with the patient. She does have an area of redness and some evidence for streaking up the right leg. Patient will be started on antibiotics. She was that she is had Keflex in the past and thought may feel itchy. Patient be given a prescription for Bactrim. Disposition Clinical Impression: Cellulitis Disposition: HOME SELF-CARE Condition: Good Instructions: Cellulitis (ED) Additional Instructions: Please use medication as discussed. Please follow-up with family doctor in the next 2 days of symptoms have not improved. Please return to emergency room if the symptoms increase or worsen or for any other concerns. Prescriptions: Sulfamethox-Tmp 800-160Mg [Bactrim DS 800-160 mg] 1 tab PO Q12HR #20 tab Is patient prescribed a controlled substance at d/c from ED?: No Referrals: Sue Alfaro DO [Primary Care Provider] - 1-2 days Time of Disposition: 17:45
--- NOTE | 2017-10-11 17:26 | US ---
EXAMINATION TYPE: US venous doppler duplex LE RT DATE OF EXAM: 10/11/2017 5:15 PM COMPARISON: NONE CLINICAL HISTORY: Discomfort and redness. Hernia surgery 1 week ago SIDE PERFORMED: Right TECHNIQUE: The lower extremity deep venous system is examined utilizing real time linear array sonog nita with graded compression, doppler sonography and color-flow sonography. VESSELS IMAGED: External Iliac Vein (EIV) Common Femoral Vein Deep Femoral Vein Greater Saphenous Vein * Femoral Vein Popliteal Vein Small Saphenous Vein * Proximal Calf Veins (* superficial vessels) Right Leg: Negative for DVT IMPRESSION: Normal exam. No evidence of deep venous thrombosis in the right leg.
[2017-10-11 17:59] VITALS: BP 146/78; PULSE 88; RESP 18; TEMP 98.1
== END 2017-10-11 17:57 | disposition home or self-care (01) ==
LOC: EC 16:14
DX: L03.115 Cellulitis of right lower limb (principal); I10 Essential (primary) hypertension; E07.9 Disorder of thyroid, unspecified; E61.1 Iron deficiency; Z79.899 Other long term (current) drug therapy; Z88.0 Allergy status to penicillin; Z88.1 Allergy status to other antibiotic agents; Z88.5 Allergy status to narcotic agent; Z88.8 Allergy status to other drugs, medicaments and biological substances; Z87.39 Personal history of other diseases of the musculoskeletal system and connective tissue; Z98.890 Other specified postprocedural states
CPT/HCPCS: 99283

== ENCOUNTER → 2017-11-25 | Outpatient (CLI) | payer BC ==
[2017-11-25 13:12] LABS: Ionized Calcium 5.6 mg/dL (4.5-5.3)
[2017-11-25 13:41] LABS: T4, Free (Free Thyroxine) 1.55 ng/dL (0.78-2.19)
[2017-11-25 19:24] LABS: Iron Saturation 9.58 (12.00-45.00)
[2017-11-25 19:47] LABS: Parathyroid Hormone Intact 77.5 pg/mL (14.0-72.0)
[2017-11-25 21:10] LABS: Hemoglobin A1C 5.2 % (4.0-6.0)
== END | disposition home or self-care (01) ==
LOC: LABWHC1 12:30
PROVIDERS: ATTEND Family Medicine
DX: E83.52 Hypercalcemia (principal); E03.9 Hypothyroidism, unspecified; D64.9 Anemia, unspecified
CPT/HCPCS: 36415; 82330; 82728; 83036; 83540; 83550; 83970; 84439; 84443

== ENCOUNTER → 2018-07-15 | Outpatient (CLI) | payer BC ==
[2018-07-15 09:35] LABS: HCT 42.3 % (34.0-46.0); HGB 13.2 gm/dL (11.4-16.0); Hypochromasia Slight; MCH 28.4 pg (25.0-35.0); MCHC 31.3 g/dL (31.0-37.0); MCV 90.8 fL (80.0-100.0); Mean Platelet Volume 6.8; Platelet Count 260 k/uL (150-450); RBC 4.65 m/uL (3.80-5.40); RDW 14.6 % (11.5-15.5); WBC 7.1 k/uL (3.8-10.6)
[2018-07-15 09:38] LABS: Ionized Calcium 5.7 mg/dL (4.5-5.3)
[2018-07-15 16:27] LABS: Albumin 4.4 g/dL (3.80-4.90); Albumin/Globulin Ratio 1.63 (1.60-3.17); Anion Gap 4.5 mmol/L (4.00-12.00); Calcium 10.2 mg/dL (8.7-10.3); Carbon Dioxide 27.5 mmol/L (21.6-31.8); Globulin 2.7 g/dL (1.6-3.3); Potassium 5.1 mmol/L (3.5-5.5); Total Bilirubin 0.7 mg/dL (0.3-1.2); Total Protein 7.1 g/dL (6.2-8.2)
[2018-07-15 16:36] LABS: T4, Free (Free Thyroxine) 1.5 ng/dL (0.80-1.80)
[2018-07-15 17:36] LABS: Parathyroid Hormone Intact 57.7 pg/mL (14.0-72.0)
== END ==
LOC: LABWHC1 08:20
PROVIDERS: ATTEND Family Medicine
DX: E03.9 Hypothyroidism, unspecified (principal); E83.52 Hypercalcemia
CPT/HCPCS: 36415; 80053; 82330; 83540; 83970; 84439; 84443; 85027

== ENCOUNTER → 2018-10-05 | Outpatient (CLI) | payer BC ==
[2018-10-05 08:05] LABS: Ionized Calcium 5.5 mg/dL (4.5-5.3)
[2018-10-05 16:04] LABS: African American GFR (CKD) 118.9 (60.0-200.0); Albumin 4.2 g/dL (3.80-4.90); Albumin/Globulin Ratio 1.75 (1.60-3.17); Anion Gap 7.7 mmol/L (4.00-12.00); BUN/Creat Ratio 43.33 Ratio (12.00-20.00); Calcium 9.8 mg/dL (8.7-10.3); Carbon Dioxide 26.3 mmol/L (21.6-31.8); Globulin 2.4 g/dL (1.6-3.3); Total Bilirubin 0.6 mg/dL (0.2-1.2); Total Protein 6.6 g/dL (6.2-8.2)
[2018-10-05 17:05] LABS: Parathyroid Hormone Intact 73.9 pg/mL (14.0-72.0)
== END | disposition home or self-care (01) ==
LOC: LABWHC1 07:04
PROVIDERS: ATTEND Physician Assistant
DX: D64.9 Anemia, unspecified (principal)
CPT/HCPCS: 36415; 80053; 82330; 83540; 83970

== ENCOUNTER → 2019-01-09 | Outpatient (CLI) | payer BC ==
[2019-01-09 07:31] LABS: Basophils # (A) 0.1 k/uL (0-0.2); Basophils % (A) 1 %; Eosinophils # (A) 0.3 k/uL (0-0.7); Eosinophils % (A) 4 %; HGB 12.7 gm/dL (11.4-16.0); Lymphocytes # (A) 2.1 k/uL (1.0-4.8); Lymphocytes % (A) 26 %; MCH 28.2 pg (25.0-35.0); MCHC 31.9 g/dL (31.0-37.0); MCV 88.6 fL (80.0-100.0); Monocytes # (A) 0.4 k/uL (0-1.0); Monocytes % (A) 5 %; Neutrophils % (A) 63 %; Platelet Count 267 k/uL (150-450); RBC 4.51 m/uL (3.80-5.40); RDW 14.3 % (11.5-15.5)
[2019-01-09 07:33] LABS: Ionized Calcium 5.1 mg/dL (4.5-5.3)
[2019-01-09 11:23] LABS: African American GFR (CKD) 96.2 (60.0-200.0); Albumin 4.2 g/dL (3.80-4.90); Albumin/Globulin Ratio 1.62 (1.60-3.17); Anion Gap 6.9 mmol/L (4.00-12.00); BUN/Creat Ratio 28.75 Ratio (12.00-20.00); Calcium 9.6 mg/dL (8.7-10.3); Carbon Dioxide 26.1 mmol/L (21.6-31.8); Chol/HDL Ratio 3.13; Globulin 2.6 g/dL (1.6-3.3); LDL Cholesterol,Calculated 99.8 mg/dL (0.0-131.0); Potassium 4.7 mmol/L (3.5-5.5); Total Bilirubin 0.6 mg/dL (0.3-1.2); Total Protein 6.8 g/dL (6.2-8.2); VLDL Calculation 13.2 mg/dL (5.00-40.00)
== END | disposition home or self-care (01) ==
LOC: LABWHC1 07:08
PROVIDERS: ATTEND Family Medicine
DX: I10 Essential (primary) hypertension (principal); E83.52 Hypercalcemia
CPT/HCPCS: 36415; 80053; 80061; 82330; 83970; 85025

== ENCOUNTER 2019-04-25 09:55 | Emergency (ER) | payer BC ==
[2019-04-25] MEDS ORDERED: IPRATROPIUM-ALBUTEROL 3 ML NEB INHALATION STA (10:18)
[2019-04-25] MEDS ORDERED: DIPHENOX-ATROP STARTER PACK 8 TAB BTL PO STA (10:19)
[2019-04-25 10:35] LABS: Basophils % (A) 1 %; Eosinophils # (A) 0.2 k/uL (0-0.7); Eosinophils % (A) 2 %; HCT 39.6 % (34.0-46.0); HGB 12.9 gm/dL (11.4-16.0); Lymphocytes # (A) 1.7 k/uL (1.0-4.8); Lymphocytes % (A) 24 %; MCHC 32.7 g/dL (31.0-37.0); MCV 88.9 fL (80.0-100.0); Mean Platelet Volume 7.3; Monocytes # (A) 0.3 k/uL (0-1.0); Monocytes % (A) 4 %; Neutrophils % (A) 69 %; Platelet Count 300 k/uL (150-450); RBC 4.45 m/uL (3.80-5.40); WBC 7.2 k/uL (3.8-10.6)
--- NOTE | 2019-04-25 10:41 | XR ---
EXAMINATION TYPE: XR chest 2V DATE OF EXAM: 04/25/2019 COMPARISON: 10/23/2014 TECHNIQUE: PA and lateral views submitted. HISTORY: Difficulty breathing FINDINGS: Heart is prominent. Patient is rotated to the interstitium appears prominent centrally and there are subsegmental changes at both lung bases. No pneumothorax. No sizable pleural effusion. Degenerative c hange of the spine. IMPRESSION: 1. Correlate for interstitial mild venous congestion versus interstitial pneumonitis. By basilar subs egmental consolidation may been the basis of atelectasis rather than pneumonia correlate clinically.
[2019-04-25 10:48] LABS: ALT 22 U/L (4-34); AST 26 U/L (14-36); African American GFR (CKD) >90 (>60 ml/min/1.73 sqM); Albumin 4.3 g/dL (3.5-5.0); Alkaline Phosphatase 104 U/L (38-126); Anion Gap 7 mmol/L; Blood Urea Nitrogen 27 mg/dL (7-17); Calcium 10.1 mg/dL (8.4-10.2); Carbon Dioxide 26 mmol/L (22-30); Chloride 108 mmol/L (98-107); Glucose 111 mg/dL (74-99); Magnesium 1.8 mg/dL (1.6-2.3); Non-African American GFR(CKD) >90 (>60 ml/min/1.73 sqM); Potassium 4.1 mmol/L (3.5-5.1); Sodium 141 mmol/L (137-145); Total Bilirubin 0.8 mg/dL (0.2-1.3); Total Protein 7.7 g/dL (6.3-8.2)
[2019-04-25 10:52] LABS: D-Dimer 0.56 mg/L FEU (<0.60); INR 0.9 (<1.2); Partial Thromboplastin Time 25.3 sec (22.0-30.0); Prothrombin Time 9.9 sec (9.0-12.0)
[2019-04-25] MEDS ORDERED: methylPREDNISolone SOD SUCCI 125 MG/2 ML VIAL IV STA (12:07)
--- NOTE | 2019-04-25 12:07 | ED ---
General Adult HPI - General Chief complaint: Shortness of Breath Stated complaint: SOB Time Seen by Provider: 04/25/19 10:00 Source: patient, RN notes reviewed, old records reviewed Mode of arrival: ambulatory Limitations: no limitations - History of Present Illness Initial comments: This is a 53-year-old female who states she has no history of any difficulty breathing. Patient states she was at the [facility] today swimming when she started having some shortness of breath and felt as though she was wheezing. Patient denies any significant cough. Patient denies any chest pain palpitations. Patient denies any lightheadedness or dizziness. Patient states her only symptom appears to be problems breathing. Patient states she always has edema in her legs and it's no different today than it has been. Patient denies any calf tenderness. Patient denies any abdominal pain patient denies nausea vomiting diarrhea. - Related Data Home Medications Medication Instructions Recorded Confirmed Cetirizine HCl [Zyrtec] 10 mg PO DAILY 10/23/14 02/02/18 Acetaminophen [Tylenol] 500 mg PO Q6HR PRN 09/02/16 02/02/18 Baclofen [Lioresal] 20 mg PO HS 11/16/16 02/02/18 Levothyroxine Sodium 150 mcg PO DAILY 01/06/17 02/02/18 Ferrous Sulfate [Feosol] 325 mg PO BID 05/28/17 02/02/18 Multivitamins, Thera [Multivitamin 1 tab PO DAILY 05/28/17 02/02/18 (formulary)] Losartan [Cozaar] 50 mg PO DAILY 02/02/18 02/02/18 Previous Rx's Medication Instructions Recorded Omeprazole 40 mg PO DAILY #90 capsule. 01/12/17 Sulfamethox-Tmp 800-160Mg [Bactrim 1 tab PO Q12HR #20 tab 10/11/17 DS 800-160 mg] Albuterol Inhaler [Ventolin Hfa 1 - 2 puff INHALATION Q6HR PRN #2 04/25/19 Inhaler] puff predniSONE 40 mg PO DAILY #8 tab 04/25/19 Allergies Allergy/AdvReac Type Severity Reaction Status Date / Time amoxicillin Allergy Rash/Hives Verified 04/25/19 10:01 erythromycin base Allergy Rash/Hives Verified 04/25/19 10:01 morphine Allergy Nausea & Verified 04/25/19 10:01 Vomiting Morpholine Analogues Allergy Nausea & Verified 04/25/19 10:01 Vomiting Penicillins Allergy Rash/Hives Verified 04/25/19 10:01 Review of Systems ROS Statement: Those systems with pertinent positive or pertinent negative responses have been documented in the HPI. ROS Other: All systems not noted in ROS Statement are negative. Past Medical History Past Medical History: Hypertension, Osteoarthritis (OA), Thyroid Disorder Additional Past Medical History / Comment(s): varicose veins, RLS., low iron., incisional hernia., occasional left hip pain. History of Any Multi-Drug Resistant Organisms: None Reported Past Surgical History: Bariatric Surgery, Hernia Repair, Hysterectomy, Joint Replacement, Orthopedic Surgery, Tonsillectomy Additional Past Surgical History / Comment(s): sinus surgery, bone spur removed from left foot, bariatric sleeve gastrectomy 01-11-17, total left hip, anterior approace 06/13. right foot surgery hammer toe repair 01-11 Past Anesthesia/Blood Transfusion Reactions: No Reported Reaction Past Psychological History: No Psychological Hx Reported Smoking Status: Never smoker Past Alcohol Use History: None Reported Past Drug Use History: None Reported - Past Family History Mother Family Medical History: Pulmonary Embolus Father Family Medical History: Cancer Additional Family Medical History / Comment(s): pancreatic cancer Sister(s) Family Medical History: Cancer Additional Family Medical History / Comment(s): colon cancer General Exam - General Exam Comments Initial Comments: GENERAL: Patient is well-developed and well-nourished. Patient is nontoxic and well- hydrated and is in mild distress. ENT: Neck is soft and supple. No significant lymphadenopathy is noted. Oropharynx is clear. Moist mucous membranes. Neck has full range of motion without eliciting any pain. EYES: The sclera were anicteric and conjunctiva were pink and moist. Extraocular movements were intact and pupils were equal round and reactive to light. Ey elids were unremarkable. PULMONARY: Expiratory wheezing. CARDIOVASCULAR: There is a regular rate and rhythm without any murmurs gallops or rubs. ABDOMEN: Soft and nontender with normal bowel sounds. No palpable organomegaly was noted. There is no palpable pulsatile mass. SKIN: Skin is clear with no lesions or rashes and otherwise unremarkable. NEUROLOGIC: Patient is alert and oriented x3. Cranial nerves II through XII are grossly intact. Motor and sensory are also intact. Normal speech, volume and content. Symmetrical smile. MUSCULOSKELETAL: Normal extremities with adequate strength and full range of motion. No lower extremity swelling or edema. No calf tenderness. LYMPHATICS: No significant lymphadenopathy is noted PSYCHIATRIC: Normal psychiatric evaluation. Limitations: no limitations Course Vital Signs 04/25/19 04/25/19 04/25/19 09:58 10:31 10:41 Temperature 97.8 F Pulse Rate 76 68 75 Respiratory 18 Rate Blood Pressure 184/95 O2 Sat by Pulse 99 Oximetry Medical Decision Making - Medical Decision Making EKG shows normal sinus rhythm at 77 bpm MD interval is 164 QRS 84 Q-T of 34 QTC is [address] segment elevation or depression. Chest x-ray shows no acute abnormality. I went back in and reevaluated the patient after she had a breathing treatment she was feeling back to her baseline at that point time. Patient also received steroids in the emergency department. - Lab Data Result diagrams: 04/25/19 10:15 04/25/19 10:15 Lab Results 04/25/19 04/25/19 04/25/19 Range/Units 10:15 10:15 10:15 WBC 7.2 (3.8-10.6) k/uL RBC 4.45 (3.80-5.40) m/uL Hgb 12.9 (11.4-16.0) gm/dL Hct 39.6 (34.0-46.0) % MCV 88.9 (80.0-100.0) fL MCH 29.0 (25.0-35.0) pg MCHC 32.7 (31.0-37.0) g/dL RDW 14.0 (11.5-15.5) % Plt Count 300 (150-450) k/uL Neutrophils % 69 % Lymphocytes % 24 % Monocytes % 4 % Eosinophils % 2 % Basophils % 1 % Neutrophils # 5.0 (1.3-7.7) k/uL Lymphocytes # 1.7 (1.0-4.8) k/uL Monocytes # 0.3 (0-1.0) k/uL Eosinophils # 0.2 (0-0.7) k/uL Basophils # 0.0 (0-0.2) k/uL PT 9.9 (9.0-12.0) sec INR 0.9 (<1.2) APTT 25.3 (22.0-30.0) sec D-Dimer 0.56 (<0.60) mg/L FEU Sodium 141 (137-145) mmol/L Potassium 4.1 (3.5-5.1) mmol/L Chloride 108 H (98-107) mmol/L Carbon Dioxide 26 (22-30) mmol/L Anion Gap 7 mmol/L BUN 27 H (7-17) mg/dL Creatinine 0.62 (0.52-1.04) mg/dL Est GFR (CKD-EPI)AfAm >90 (>60 ml/min/1.73 sqM) Est GFR (CKD-EPI)NonAf >90 (>60 ml/min/1.73 sqM) Glucose 111 H (74-99) mg/dL Calcium 10.1 (8.4-10.2) mg/dL Magnesium 1.8 (1.6-2.3) mg/dL Total Bilirubin 0.8 (0.2-1.3) mg/dL AST 26 (14-36) U/L ALT 22 (4-34) U/L Alkaline Phosphatase 104 (38-126) U/L Troponin I (0.000-0.034) ng/mL NT-Pro-B Natriuret Pep pg/mL Total Protein 7.7 (6.3-8.2) g/dL Albumin 4.3 (3.5-5.0) g/dL 04/25/19 04/25/19 Range/Units 10:15 10:15 WBC (3.8-10.6) k/uL RBC (3.80-5.40) m/uL Hgb (11.4-16.0) gm/dL Hct (34.0-46.0) % MCV (80.0-100.0) fL MCH (25.0-35.0) pg MCHC (31.0-37.0) g/dL RDW (11.5-15.5) % Plt Count (150-450) k/uL Neutrophils % % Lymphocytes % % Monocytes % % Eosinophils % % Basophils % % Neutrophils # (1.3-7.7) k/uL Lymphocytes # (1.0-4.8) k/uL Monocytes # (0-1.0) k/uL Eosinophils # (0-0.7) k/uL Basophils # (0-0.2) k/uL PT (9.0-12.0) sec INR (<1.2) APTT (22.0-30.0) sec D-Dimer (<0.60) mg/L FEU Sodium (137-145) mmol/L Potassium (3.5-5.1) mmol/L Chloride (98-107) mmol/L Carbon Dioxide (22-30) mmol/L Anion Gap mmol/L BUN (7-17) mg/dL Creatinine (0.52-1.04) mg/dL Est GFR (CKD-EPI)AfAm (>60 ml/min/1.73 sqM) Est GFR (CKD-EPI)NonAf (>60 ml/min/1.73 sqM) Glucose (74-99) mg/dL Calcium (8.4-10.2) mg/dL Magnesium (1.6-2.3) mg/dL Total Bilirubin (0.2-1.3) mg/dL AST (14-36) U/L ALT (4-34) U/L Alkaline Phosphatase (38-126) U/L Troponin I <0.012 (0.000-0.034) ng/mL NT-Pro-B Natriuret Pep 159 pg/mL Total Protein (6.3-8.2) g/dL Albumin (3.5-5.0) g/dL Disposition Clinical Impression: Bronchospasm, acute Disposition: HOME SELF-CARE Condition: Good Instructions (If sedation given, give patient instructions): Bronchospasm (ED) Prescriptions: predniSONE 40 mg PO DAILY #8 tab Albuterol Inhaler [Ventolin Hfa Inhaler] 1 - 2 puff INHALATION Q6HR PRN #2 puff PRN Reason: Difficulty breathing Is patient prescribed a controlled substance at d/c from ED?: No Referrals: Sue Alfaro DO [Primary Care Provider] - 1-2 days Time of Disposition: 12:22
[2019-04-25 12:22] LABS: Appearance,Urine Clear (Clear); Bilirubin,Urine Negative (Negative); Blood,Urine Negative (Negative); Color,Urine Light Yellow; Glucose,Urine (UA) Negative (Negative); Ketones,Urine Negative (Negative); Leukocyte Esterase,Urine Negative (Negative); Nitrite,Urine Negative (Negative); PH, Urine 5.5 (5.0-8.0); Protein,Urine Negative (Negative); Specific Gravity,Urine 1.012 (1.001-1.035); Urobilinogen,Urine <2.0 mg/dL (<2.0)
[2019-04-25 12:27] VITALS: BP 174/86; PULSE 74; RESP 15; TEMP 98.1
== END 2019-04-25 12:40 | disposition home or self-care (01) ==
LOC: EC 09:55
DX: J98.01 Acute bronchospasm (principal); I10 Essential (primary) hypertension; M19.90 Unspecified osteoarthritis, unspecified site; E07.9 Disorder of thyroid, unspecified; Z88.0 Allergy status to penicillin; Z88.1 Allergy status to other antibiotic agents; Z88.5 Allergy status to narcotic agent; Z88.8 Allergy status to other drugs, medicaments and biological substances; Z83.6 Family history of other diseases of the respiratory system; Z79.890 Hormone replacement therapy; Z79.899 Other long term (current) drug therapy; Z96.642 Presence of left artificial hip joint
CPT/HCPCS: 36415; 94640; 93005; 85379; 83880; 80053; 83735; 84484; 85025; 85610; 85730; 81003; 71046; 99285; 96374; J2930

== ENCOUNTER → 2019-04-28 | Outpatient (CLI) | payer BC | END | disposition home or self-care (01) | LOC: LABWHC1 10:52 | PROVIDERS: ATTEND Family Medicine | DX: E83.52 Hypercalcemia (principal) | CPT/HCPCS: 36415; 82310; 83970 ==

== ENCOUNTER → 2019-09-12 | Outpatient (CLI) | payer BC ==
[2019-09-12 13:10] LABS: Ionized Calcium 5.4 mg/dL (4.5-5.3)
[2019-09-12 18:44] LABS: Calcium 10.6 mg/dL (8.7-10.3)
== END | disposition home or self-care (01) ==
LOC: LABWHC1 12:16
PROVIDERS: ATTEND Family Medicine
DX: E21.3 Hyperparathyroidism, unspecified (principal)
CPT/HCPCS: 36415; 82310; 82330; 83970

== ENCOUNTER → 2019-11-29 | Outpatient (CLI) | payer BC ==
[2019-11-29 09:33] LABS: HCT 40.4 % (34.0-46.0); HGB 12.7 gm/dL (11.4-16.0); Hypochromasia Slight; MCHC 31.4 g/dL (31.0-37.0); MCV 92.4 fL (80.0-100.0); Platelet Count 254 k/uL (150-450); RBC 4.37 m/uL (3.80-5.40); RDW 14.3 % (11.5-15.5); WBC 8.4 k/uL (3.8-10.6)
[2019-11-29 16:24] LABS: % Iron Saturation 17.63 (12.00-45.00); Calcium 10.1 mg/dL (8.7-10.3)
== END | disposition home or self-care (01) ==
LOC: LABWHC1 07:21
PROVIDERS: ATTEND Family Medicine
DX: D64.9 Anemia, unspecified (principal); R94.6 Abnormal results of thyroid function studies
CPT/HCPCS: 36415; 82310; 83540; 83550; 83970; 85027

== ENCOUNTER → 2019-12-21 | Outpatient (CLI) | payer BC ==
--- NOTE | 2019-12-21 16:26 | BD ---
EXAMINATION TYPE: Axial Bone Density DATE OF EXAM: 12/21/2019 COMPARISON: NONE CLINICAL HISTORY: 54-year-old female postmenopausal screening Height: 5 FT 8 1/2 IN Weight: 372 FRAX RISK QUESTIONS: Alcohol (3 or more units per day): NO Family History (Parent hip fracture): NO Glucocorticoids (More than 3mos): NO (Ex: prednisone, prednisolone, methylprednisolone, dexamethasone, and hydrocortisone). History of Fracture in Adulthood: NO Secondary Osteoporosis: 1. Type 1 Diabetes: NO 2. Hyperthyroidism: NO 3. Menopause before 45: NO 4. Malnutrition: NO 5. Chronic liver disease: NO Rheumatoid Arthritis: NO Current Tobacco Use: NO RISK FACTORS HISTORY OF: Surgery to Spine/Hip(right/left)/Wrist (right/left): LEFT HIP REPLACEMENT When: 2018 Family History of Osteoporosis: NO Active: YES Postmenopausal woman: TOTAL HYST AGE 47 Lost more than 2 inches in height since high school: Hyperparathyroidism: YES MEDICATIONS: Thyroid Medications: YES Which medication: SYNTHROID How Lon -25 YEARS Additional Medications: SYNTHROID, LOSARTIN, BACLOFEN , MIRAPEX, Additional History: EXAM MEASUREMENTS: Bone mineral densitometry was performed using the [employer] System. Bone mineral density as measured about the Lumbar spine is: ----- L1-L4(G/cm2): 0.952 T Score Values are as follows: ----- L2: -1.7 ----- L3: -1.9 ----- L4: -2.7 ----- L1-L4: -1.9 Bone mineral density has: DECREASED -4.0% since study of: 2017 Bone mineral density about the R hip (g/cm2): 0.793 T Score values are as follows: -----R Neck: -1.8 -----R Total: -1.4 Bone mineral density has: DECREASED -5.0 % since study of: 2017 IMPRESSION: Osteopenia (T Score between -2.5 and -1). There is slightly increased risk of fracture and the patient may be considered for treatment. Re-Screen 2-5 years. NOTE: T-SCORE=SD OF THE YOUNG ADULT MEAN.
== END | disposition home or self-care (01) ==
LOC: RADBDWWP 14:53
PROVIDERS: ATTEND Family Medicine
DX: M85.80 Other specified disorders of bone density and structure, unspecified site (principal); E21.3 Hyperparathyroidism, unspecified
CPT/HCPCS: 77080

== ENCOUNTER → 2020-03-01 | Outpatient (CLI) | payer BC | END | disposition home or self-care (01) | LOC: LABWHC1 13:19 | PROVIDERS: ATTEND Family Medicine | DX: E03.9 Hypothyroidism, unspecified (principal) | CPT/HCPCS: 36415; 82310; 83970 ==

== ENCOUNTER 2020-03-05 07:06 | Emergency (ER) | payer BC ==
--- NOTE | 2020-03-05 07:41 | ED ---
General Adult HPI - General Chief complaint: Extremity Problem,Nontraumatic Stated complaint: L leg pain/swelling Time Seen by Provider: 03/05/20 07:24 Source: patient, RN notes reviewed Mode of arrival: ambulatory Limitations: no limitations - History of Present Illness Initial comments: Patient is a pleasant 54-year-old female presenting to the emergency Department with left leg discomfort. Onset of symptoms was just a couple of days ago. Discomfort is mostly behind the left calf. Patient does state it feels swollen. No warmth. Patient did notice a little bit of redness. No fever. No history of similar symptoms previously. No chest pain or shortness of breath. - Related Data Home Medications Medication Instructions Recorded Confirmed Cetirizine HCl [Zyrtec] 10 mg PO DAILY 10/23/14 02/02/18 Acetaminophen [Tylenol] 500 mg PO Q6HR PRN 09/02/16 02/02/18 Baclofen [Lioresal] 20 mg PO HS 11/16/16 02/02/18 Levothyroxine Sodium 150 mcg PO DAILY 01/06/17 02/02/18 Ferrous Sulfate [Feosol] 325 mg PO BID 05/28/17 02/02/18 Multivitamins, Thera [Multivitamin 1 tab PO DAILY 05/28/17 02/02/18 (formulary)] Losartan [Cozaar] 50 mg PO DAILY 02/02/18 02/02/18 Previous Rx's Medication Instructions Recorded Omeprazole 40 mg PO DAILY #90 capsule. 01/12/17 Sulfamethox-Tmp 800-160Mg [Bactrim 1 tab PO Q12HR #20 tab 10/11/17 DS 800-160 mg] Albuterol Inhaler (Mhu) [Ventolin 1 - 2 puff INHALATION Q6HR PRN #2 04/25/19 Hfa Inhaler (Mhu)] puff predniSONE [Deltasone] 40 mg PO DAILY #8 tab 04/25/19 Cephalexin [Keflex] 500 mg PO QID #40 cap 03/05/20 Allergies Allergy/AdvReac Type Severity Reaction Status Date / Time amoxicillin Allergy Rash/Hives Verified 04/25/19 10:01 erythromycin base Allergy Rash/Hives Verified 04/25/19 10:01 morphine Allergy Nausea & Verified 04/25/19 10:01 Vomiting Morpholine Analogues Allergy Nausea & Verified 04/25/19 10:01 Vomiting Penicillins Allergy Rash/Hives Verified 04/25/19 10:01 Review of Systems ROS Statement: Those systems with pertinent positive or pertinent negative responses have been documented in the HPI. ROS Other: All systems not noted in ROS Statement are negative. Constitutional: Denies: fever, chills Eyes: Denies: eye pain ENT: Denies: ear pain Respiratory: Denies: cough, dyspnea Cardiovascular: Denies: chest pain Endocrine: Denies: fatigue Gastrointestinal: Denies: abdominal pain Genitourinary: Denies: dysuria Musculoskeletal: Reports: as per HPI. Denies: back pain Skin: Reports: as per HPI Neurological: Denies: weakness Past Medical History Past Medical History: Hypertension, Osteoarthritis (OA), Thyroid Disorder Additional Past Medical History / Comment(s): varicose veins, RLS., low iron., incisional hernia., occasional left hip pain. History of Any Multi-Drug Resistant Organisms: None Reported Past Surgical History: Bariatric Surgery, Hernia Repair, Hysterectomy, Joint Replacement, Orthopedic Surgery, Tonsillectomy Additional Past Surgical History / Comment(s): sinus surgery, bone spur removed from left foot, bariatric sleeve gastrectomy 01-11-17, total left hip, anterior approace 06/13. right foot surgery hammer toe repair 01-11 Past Anesthesia/Blood Transfusion Reactions: No Reported Reaction Past Psychological History: No Psychological Hx Reported Smoking Status: Never smoker Past Alcohol Use History: None Reported Past Drug Use History: None Reported - Past Family History Mother Family Medical History: Pulmonary Embolus Father Family Medical History: Cancer Additional Family Medical History / Comment(s): pancreatic cancer Sister(s) Family Medical History: Cancer Additional Family Medical History / Comment(s): colon cancer General Exam Limitations: no limitations General appearance: alert, in no apparent distress Head exam: Present: normocephalic Eye exam: Present: normal appearance Neck exam: Present: normal inspection Respiratory exam: Present: normal lung sounds bilaterally Cardiovascular Exam: Present: regular rate, normal rhythm Expanded Peripheral pulses: 2+: Dorsalis Pedis (R), Dorsalis Pedis (L) GI/Abdominal exam: Present: soft. Absent: tenderness Extremities exam: Present: calf tenderness (Posterior left calf, mild), other (Left lower leg does appear slightly larger than the right) Neurological exam: Present: alert Psychiatric exam: Present: normal affect, normal mood Skin exam: Present: erythema (There is mild erythematous changes anterior lower left florentino without warmth or tenderness.) Course Vital Signs 03/05/20 07:25 Temperature 97.8 F Pulse Rate 100 Respiratory 19 Rate Blood Pressure 195/81 O2 Sat by Pulse 98 Oximetry Medical Decision Making - Medical Decision Making Patient reevaluated and updated. Disposition Clinical Impression: Left leg cellulitis Disposition: HOME SELF-CARE Condition: Stable Instructions (If sedation given, give patient instructions): Cellulitis (ED) Additional Instructions: Please follow-up with primary care physician in the next day or 2 for recheck. Consider repeat ultrasound of the leg if symptoms continue. Return for chest pain or shortness of breath, fevers, increased redness or swelling, worsening symptoms or other concerns. Prescription was sent to [facility] pharmacy on [address] Prescriptions: Cephalexin [Keflex] 500 mg PO QID #40 cap Is patient prescribed a controlled substance at d/c from ED?: No Referrals: Sue Alfaro DO [Primary Care Provider] - 1-2 days Time of Disposition: 08:38
--- NOTE | 2020-03-05 08:10 | US ---
EXAMINATION TYPE: US venous doppler duplex LE LT DATE OF EXAM: 03/05/2020 7:56 AM COMPARISON: CLINICAL HISTORY: Pain and swelling, evaluate for thrombus. Left leg swelling. Calf pain. No hx bloo d clots. Not on blood thinners. SIDE PERFORMED: Left TECHNIQUE: The lower extremity deep venous system is examined utilizing real time linear array sonog nita with graded compression, doppler sonography and color-flow sonography. VESSELS IMAGED: External Iliac Vein (EIV) Common Femoral Vein Deep Femoral Vein Greater Saphenous Vein * Femoral Vein Popliteal Vein Small Saphenous Vein * Proximal Calf Veins (* superficial vessels) Limited due to patient body habitus Left Leg: Negative for acute DVT IMPRESSION: No evidence for DVT.
[2020-03-05 09:04] VITALS: BP 144/72; PULSE 81; RESP 17; TEMP 98
== END 2020-03-05 09:05 | disposition home or self-care (01) ==
LOC: EC 07:06
DX: L03.116 Cellulitis of left lower limb (principal); I10 Essential (primary) hypertension; E07.9 Disorder of thyroid, unspecified; Z79.890 Hormone replacement therapy; Z79.899 Other long term (current) drug therapy; Z88.0 Allergy status to penicillin; Z88.1 Allergy status to other antibiotic agents; Z88.5 Allergy status to narcotic agent; Z96.642 Presence of left artificial hip joint
CPT/HCPCS: 99283

== ENCOUNTER → 2020-06-10 | Outpatient (CLI) | payer BC ==
[2020-06-11 03:37] LABS: Calcium 10.6 mg/dL (8.7-10.3)
== END | disposition home or self-care (01) ==
LOC: LABWHC1 16:16
PROVIDERS: ATTEND Physician Assistant Medical
DX: E03.9 Hypothyroidism, unspecified (principal); E83.52 Hypercalcemia
CPT/HCPCS: 36415; 82306; 82310; 83970; 84443

== ENCOUNTER 2020-09-01 17:46 | Emergency (ER) | payer BC ==
[2020-09-01 17:51] VITALS: TEMP 97.9
[2020-09-01] MEDS ORDERED: SODIUM CHLORIDE 0.9% 500 ML 500 ML IV ONE (18:08)
[2020-09-01] MEDS ORDERED: ONDANSETRON 4 MG/2 ML VIAL IVP STA (18:08)
[2020-09-01] MEDS ORDERED: FAMOTIDINE 20 MG/2 ML VIAL IV STA (18:08)
--- NOTE | 2020-09-01 18:30 | ED ---
General Adult HPI - General Chief complaint: Abdominal Pain Stated complaint: back pain/indigestion Time Seen by Provider: 09/01/20 17:54 Source: patient Mode of arrival: ambulatory Limitations: no limitations - History of Present Illness Initial comments: This is a 55-year-old female with a history of hypertension, hyperparathyroidism, hypothyroidism who presents emergency department for nausea, back pain, and generalized malaise. The patient states that this started after eating some ham and mashed potatoes earlier today. She states that she immediately had the back pain after eating and then the nausea started. She states the back pain has now subsided but she is persistently nauseated and states that she just does not feel very well. She states that she feels generally weak and has generalized malaise which is why she came to the emerg ency department. She states that she has no chest pain no trouble breathing, no abdominal pain, no diarrhea or dark or bloody stools. She states that she is not currently treated for her hyperparathyroidism however calcium tends to run in the 10-11 range normally. Denies any lightheadedness currently however states that when she was very nauseated earlier she did get a little lightheaded however does have a history of vasovagal syncope related to vomiting in the past. She denies any other acute complaints. - Related Data Home Medications Medication Instructions Recorded Confirmed Cetirizine HCl [Zyrtec] 10 mg PO DAILY 10/23/14 02/02/18 Acetaminophen [Tylenol] 500 mg PO Q6HR PRN 09/02/16 02/02/18 Baclofen [Lioresal] 20 mg PO HS 11/16/16 02/02/18 Levothyroxine Sodium 150 mcg PO DAILY 01/06/17 02/02/18 Ferrous Sulfate [Feosol] 325 mg PO BID 05/28/17 02/02/18 Multivitamins, Thera [Multivitamin 1 tab PO DAILY 05/28/17 02/02/18 (formulary)] Losartan [Cozaar] 50 mg PO DAILY 02/02/18 02/02/18 Previous Rx's Medication Instructions Recorded Omeprazole 40 mg PO DAILY #90 capsule. 01/12/17 Sulfamethox-Tmp 800-160Mg [Bactrim 1 tab PO Q12HR #20 tab 10/11/17 DS 800-160 mg] Albuterol Inhaler (Mhu) [Ventolin 1 - 2 puff INHALATION Q6HR PRN #2 04/25/19 Hfa Inhaler (Mhu)] puff predniSONE [Deltasone] 40 mg PO DAILY #8 tab 04/25/19 Cephalexin [Keflex] 500 mg PO QID #40 cap 03/05/20 Allergies Allergy/AdvReac Type Severity Reaction Status Date / Time amoxicillin Allergy Rash/Hives Verified 09/01/20 17:48 erythromycin base Allergy Rash/Hives Verified 09/01/20 17:48 morphine Allergy Nausea & Verified 09/01/20 17:48 Vomiting Morpholine Analogues Allergy Nausea & Verified 09/01/20 17:48 Vomiting Penicillins Allergy Rash/Hives Verified 09/01/20 17:48 Review of Systems ROS Statement: Those systems with pertinent positive or pertinent negative responses have been documented in the HPI. ROS Other: All systems not noted in ROS Statement are negative. Past Medical History Past Medical History: Hypertension, Osteoarthritis (OA), Thyroid Disorder Additional Past Medical History / Comment(s): varicose veins, RLS., low iron., incisional hernia., occasional left hip pain. History of Any Multi-Drug Resistant Organisms: None Reported Past Surgical History: Bariatric Surgery, Hernia Repair, Hysterectomy, Joint Replacement, Orthopedic Surgery, Tonsillectomy Additional Past Surgical History / Comment(s): sinus surgery, bone spur removed from left foot, bariatric sleeve gastrectomy 01-11-17, total left hip, anterior approace 06/13. right foot surgery hammer toe repair 01-11 Past Anesthesia/Blood Transfusion Reactions: No Reported Reaction Past Psychological History: No Psychological Hx Reported Smoking Status: Never smoker Past Alcohol Use History: None Reported Past Drug Use History: None Reported - Past Family History Mother Family Medical History: Pulmonary Embolus Father Family Medical History: Cancer Additional Family Medical History / Comment(s): pancreatic cancer Sister(s) Family Medical History: Cancer Additional Family Medical History / Comment(s): colon cancer General Exam - General Exam Comments Initial Comments: Constitutional: Awake alert Appears comfortable Head: Normocephalic atraumatic Eyes: no conjunctival injection No scleral icterus EOMI Neck: No JVD Supple Heart: Regular rate rhythm normal S1-S2 no murmurs Lungs: Clear to auscultation bilaterally No wheezing No rales Abdomen: Soft nondistended nontender Extremities: Non edematous DP pulses intact Radial pulses intact Neuro: A&Ox3 No focal neurologic deficits Psych: Appropriate mood and affect Limitations: no limitations Course Vital Signs 09/01/20 09/01/20 17:48 18:51 Temperature 97.9 F Pulse Rate 97 Respiratory 18 18 Rate Blood Pressure 176/86 O2 Sat by Pulse 98 Oximetry EKG Findings - EKG Comments: EKG Findings:: EKG showing normal sinus rhythm with rate of 94. No abnormal ST 7 changes or T-wave inversions. QTC is 462. Other intervals normal. No ectopy. Medical Decision Making - Medical Decision Making This 55-year-old female who presents emergency department for nausea, central back pain, generalized malaise after eating. The patient and EKG performed was unremarkable. Blood work was also performed and unremarkable except for some mild hyperglycemia. Calcium was within normal limits. The patient was given Zofran and Pepcid him little bit of fluid with complete resolution of her symptoms. This time I feel the patient's symptoms may be related to gastritis or possible ulceration in the stomach. I advised the patient to start taking Prilosec and have other medications such as Tums, Maalox, or Pepcid available as well. She is to have her hyperglycemia further evaluated as well by the primary doctor. She return emergency permission has worsening or changing symptoms. All questions were answered. - Lab Data Result diagrams: 09/01/20 18:29 09/01/20 18:29 Lab Results 09/01/20 09/01/20 Range/Units 18:29 18:29 WBC 10.5 (3.8-10.6) k/uL RBC 4.52 (3.80-5.40) m/uL Hgb 13.6 (11.4-16.0) gm/dL Hct 41.2 (34.0-46.0) % MCV 91.2 (80.0-100.0) fL MCH 30.1 (25.0-35.0) pg MCHC 33.1 (31.0-37.0) g/dL RDW 13.5 (11.5-15.5) % Plt Count 263 (150-450) k/uL MPV 7.4 Neutrophils % 81 % Lymphocytes % 13 % Monocytes % 2 % Eosinophils % 3 % Basophils % 1 % Neutrophils # 8.5 H (1.3-7.7) k/uL Lymphocytes # 1.4 (1.0-4.8) k/uL Monocytes # 0.2 (0-1.0) k/uL Eosinophils # 0.3 (0-0.7) k/uL Basophils # 0.1 (0-0.2) k/uL Sodium 140 (137-145) mmol/L Potassium 4.4 (3.5-5.1) mmol/L Chloride 102 (98-107) mmol/L Carbon Dioxide 26 (22-30) mmol/L Anion Gap 12 mmol/L BUN 26 H (7-17) mg/dL Creatinine 0.74 (0.52-1.04) mg/dL Est GFR (CKD-EPI)AfAm >90 (>60 ml/min/1.73 sqM) Est GFR (CKD-EPI)NonAf >90 (>60 ml/min/1.73 sqM) Glucose 246 H (74-99) mg/dL Calcium 10.0 (8.4-10.2) mg/dL Total Bilirubin 0.5 (0.2-1.3) mg/dL AST 24 (14-36) U/L ALT 18 (4-34) U/L Alkaline Phosphatase 94 (38-126) U/L Total Protein 7.9 (6.3-8.2) g/dL Albumin 4.5 (3.5-5.0) g/dL Lipase 124 (23-300) U/L Disposition Clinical Impression: Nausea, Back pain Disposition: HOME SELF-CARE Condition: Stable Instructions (If sedation given, give patient instructions): Gastritis (ED) Is patient prescribed a controlled substance at d/c from ED?: No Referrals: Sue Alfaro DO [Primary Care Provider] - 1-2 days
[2020-09-01 18:41] LABS: Basophils # (A) 0.1 k/uL (0-0.2); Basophils % (A) 1 %; Eosinophils # (A) 0.3 k/uL (0-0.7); Eosinophils % (A) 3 %; HCT 41.2 % (34.0-46.0); HGB 13.6 gm/dL (11.4-16.0); Lymphocytes # (A) 1.4 k/uL (1.0-4.8); Lymphocytes % (A) 13 %; MCH 30.1 pg (25.0-35.0); MCHC 33.1 g/dL (31.0-37.0); MCV 91.2 fL (80.0-100.0); Mean Platelet Volume 7.4; Monocytes # (A) 0.2 k/uL (0-1.0); Monocytes % (A) 2 %; Neutrophils # (A) 8.5 k/uL (1.3-7.7); Neutrophils % (A) 81 %; Platelet Count 263 k/uL (150-450); RBC 4.52 m/uL (3.80-5.40); RDW 13.5 % (11.5-15.5); WBC 10.5 k/uL (3.8-10.6)
[2020-09-01 18:56] LABS: ALT 18 U/L (4-34); AST 24 U/L (14-36); African American GFR (CKD) >90 (>60 ml/min/1.73 sqM); Albumin 4.5 g/dL (3.5-5.0); Alkaline Phosphatase 94 U/L (38-126); Anion Gap 12 mmol/L; Blood Urea Nitrogen 26 mg/dL (7-17); Carbon Dioxide 26 mmol/L (22-30); Chloride 102 mmol/L (98-107); Glucose 246 mg/dL (74-99); Lipase 124 U/L (23-300); Non-African American GFR(CKD) >90 (>60 ml/min/1.73 sqM); Potassium 4.4 mmol/L (3.5-5.1); Sodium 140 mmol/L (137-145); Total Bilirubin 0.5 mg/dL (0.2-1.3); Total Protein 7.9 g/dL (6.3-8.2)
[2020-09-01 19:31] VITALS: BP 157/71; PULSE 82; RESP 16
== END 2020-09-01 19:30 | disposition home or self-care (01) ==
LOC: EC 17:46
DX: M54.9 Dorsalgia, unspecified (principal); R11.2 Nausea with vomiting, unspecified; I10 Essential (primary) hypertension; E03.9 Hypothyroidism, unspecified; G25.81 Restless legs syndrome; M19.90 Unspecified osteoarthritis, unspecified site; Z79.890 Hormone replacement therapy; Z79.52 Long term (current) use of systemic steroids; Z88.0 Allergy status to penicillin; Z88.1 Allergy status to other antibiotic agents
CPT/HCPCS: 36415; 93005; 80053; 83690; 85025; 99284; 96374; 96375; J2405

== ENCOUNTER → 2020-12-20 | Outpatient (CLI) | payer BC ==
[2020-12-20 22:36] LABS: HCT 43.6 % (37.2-46.3); HGB 13.2 g/dL (12.0-15.0); MCH 28.6 pg (27.0-32.0); MCHC 30.3 g/dL (32.0-37.0); MCV 94.6 fL (80.0-97.0); Mean Platelet Volume 10.4 fL (9.5-12.2); Platelet Count 230 X 10*3/uL (140-440); RBC 4.61 X 10*6/uL (4.10-5.20); RDW 14.6 % (11.5-14.5); WBC 10.58 X 10*3/uL (4.50-10.00)
[2020-12-21 01:06] LABS: Hemoglobin A1C 5.7 % (4.0-6.0)
[2020-12-21 06:21] LABS: African American GFR (CKD) 111.5 (60.0-200.0); Albumin 4.7 g/dL (3.80-4.90); Albumin/Globulin Ratio 1.52 (1.60-3.17); Anion Gap 11.4 mmol/L (4.00-12.00); BUN/Creat Ratio 31.43 Ratio (12.00-20.00); Calcium 10.1 mg/dL (8.7-10.3); Carbon Dioxide 25.6 mmol/L (21.6-31.8); Globulin 3.1 g/dL (1.6-3.3); Non-African American GFR(CKD) 96.2 (60.0-200.0); Potassium 4.7 mmol/L (3.5-5.5); Total Bilirubin 0.8 mg/dL (0.2-1.2); Total Protein 7.8 g/dL (6.2-8.2)
[2020-12-21 06:29] LABS: T4, Free (Free Thyroxine) 1.3 ng/dL (0.80-1.80)
== END | disposition home or self-care (01) ==
LOC: LABWHC1 16:06
PROVIDERS: ATTEND Physician Assistant Medical
DX: E03.9 Hypothyroidism, unspecified (principal); E21.5 Disorder of parathyroid gland, unspecified; R73.01 Impaired fasting glucose
CPT/HCPCS: 36415; 80053; 83036; 83970; 84439; 84443; 84481; 85027

== ENCOUNTER → 2020-12-21 | Outpatient (CLI) | payer BC ==
[2020-12-21 17:06] LABS: Chol/HDL Ratio 3.67
== END | disposition home or self-care (01) ==
LOC: LABWHC1 08:49
PROVIDERS: ATTEND Physician Assistant Medical
DX: E03.9 Hypothyroidism, unspecified (principal); E21.5 Disorder of parathyroid gland, unspecified; R73.01 Impaired fasting glucose
CPT/HCPCS: 36415; 80061

== ENCOUNTER → 2021-06-17 | Outpatient (CLI) | payer BC ==
[2021-06-17 11:13] LABS: HCT 39.5 % (37.2-46.3); HGB 12.4 g/dL (12.0-15.0); MCH 29.4 pg (27.0-32.0); MCHC 31.4 g/dL (32.0-37.0); MCV 93.6 fL (80.0-97.0); Mean Platelet Volume 9.6 fL (9.5-12.2); NRBC Per 100 WBC 0 /100 WBCS (0.0-0.0); Platelet Count 284 X 10*3/uL (140-440); RBC 4.22 X 10*6/uL (4.10-5.20); RDW 14.8 % (11.5-14.5); WBC 8.39 X 10*3/uL (4.50-10.00)
[2021-06-17 13:12] LABS: ALT 21 U/L (8-44); AST 16 U/L (13-35); African American GFR (CKD) 111.5 (60.0-200.0); Albumin 4.3 g/dL (3.8-4.9); Albumin/Globulin Ratio 1.48 (1.60-3.17); Alkaline Phosphatase 80 U/L (41-126); BUN/Creat Ratio 34.14 Ratio (12.00-20.00); Blood Urea Nitrogen 23.9 mg/dL (9.0-27.0); Carbon Dioxide 26.5 mmol/L (20.0-27.5); Chloride 101 mmol/L (96-109); Chol/HDL Ratio 3.32 Ratio; Globulin 2.9 g/dL (1.6-3.3); Glucose 149 mg/dL (70-110); LDL Cholesterol,Calculated 114.4 mg/dL (0.0-131.0); Non-African American GFR(CKD) 96.2 (60.0-200.0); Sodium 138 mmol/L (135-145); Total Protein 7.2 g/dL (6.2-8.2); VLDL Calculation 16.18 mg/dL (5.00-40.00)
== END | disposition home or self-care (01) ==
LOC: LABWHC1 07:12
PROVIDERS: ATTEND Physician Assistant Medical
DX: I10 Essential (primary) hypertension (principal); E03.9 Hypothyroidism, unspecified; E83.52 Hypercalcemia
CPT/HCPCS: 36415; 80053; 80061; 83970; 84436; 84443; 84480; 85027

== ENCOUNTER → 2021-09-08 | Outpatient (CLI) | payer BC ==
[2021-09-08 11:15] LABS: Ionized Calcium 5.5 mg/dL (4.5-5.3)
[2021-09-08 14:39] LABS: HCT 40.7 % (37.2-46.3); HGB 12.7 g/dL (12.0-15.0); MCH 29.5 pg (27.0-32.0); MCHC 31.2 g/dL (32.0-37.0); MCV 94.4 fL (80.0-97.0); Mean Platelet Volume 10.1 fL (9.5-12.2); NRBC Per 100 WBC 0 /100 WBCS (0.0-0.0); Platelet Count 251 X 10*3/uL (140-440); RBC 4.31 X 10*6/uL (4.10-5.20); RDW 14.5 % (11.5-14.5)
[2021-09-08 15:14] LABS: ALT 22 U/L (8-44); AST 19 U/L (13-35); African American GFR (CKD) 110.7 (60.0-200.0); Albumin 4.4 g/dL (3.8-4.9); Albumin/Globulin Ratio 1.38 (1.60-3.17); Alkaline Phosphatase 79 U/L (41-126); BUN/Creat Ratio 31.57 Ratio (12.00-20.00); Blood Urea Nitrogen 22.1 mg/dL (9.0-27.0); Calcium 10.1 mg/dL (8.7-10.3); Carbon Dioxide 23.3 mmol/L (20.0-27.5); Chloride 103 mmol/L (96-109); Chol/HDL Ratio 3.44 Ratio; Globulin 3.2 g/dL (1.6-3.3); Glucose 152 mg/dL (70-110); LDL Cholesterol,Calculated 121.3 mg/dL (0.0-131.0); Non-African American GFR(CKD) 95.5 (60.0-200.0); Potassium 4.3 mmol/L (3.5-5.5); Sodium 138 mmol/L (135-145); Total Protein 7.6 g/dL (6.2-8.2); VLDL Calculation 16.98 mg/dL (5.00-40.00)
== END | disposition home or self-care (01) ==
LOC: LABWHC1 09:20
PROVIDERS: ATTEND Physician Assistant Medical
DX: E03.9 Hypothyroidism, unspecified (principal); R73.01 Impaired fasting glucose; E66.9 Obesity, unspecified
CPT/HCPCS: 36415; 80053; 80061; 82306; 82330; 83970; 84439; 84443; 85027

== ENCOUNTER 2022-07-13 01:04 | Emergency (ER) | payer BC ==
[2022-07-13 01:13] VITALS: TEMP 99.6
[2022-07-13] MEDS ORDERED: dexAMETHasone 2 MG TAB PO STA (01:32)
[2022-07-13] MEDS ORDERED: IPRATROPIUM 0.5 MG/2.5 ML NEBU INHALATION STA (01:32)
[2022-07-13] MEDS ORDERED: ALBUTEROL NEBULIZED 2.5 MG/3 ML INHALATION STA (01:33)
[2022-07-13 02:28] VITALS: BP 180/78; PULSE 108; RESP 20
--- NOTE | 2022-07-13 02:38 | ED ---
General Adult HPI - General Chief complaint: Upper Respiratory Infection Stated complaint: sob/pamela Time Seen by Provider: 07/13/22 01:22 Source: patient Mode of arrival: ambulatory Limitations: no limitations - History of Present Illness Initial comments: This is a 56-year-old female with a past medical history including hypertension, hypothyroidism presented to the emergency department for shortness of breath and facial pain and congestion. The patient stated that she has a history of ALLERGY-induced asthma one time previously and she stated that her symptoms do feel similar to this. The patient stated that she took an [id number] Zyrtec however denied of any improvement of her symptoms. The patient stated that she feels that she could not take a full deep breath and was similar to her previous episode. The patient did not have any albuterol at home as her inhaler did . The patient also stated that she had facial pain and congestion over the last 1 week that has not been improving. The patient denied any nausea or vomiting as well as any fevers or chills. The patient was speaking in full sentences without any tachypnea or increased work of breathing noted. - Related Data Home Medications Medication Instructions Recorded Confirmed Cetirizine HCl [Zyrtec] 10 mg PO DAILY 10/23/14 02/02/18 Acetaminophen [Tylenol] 500 mg PO Q6HR PRN 09/02/16 02/02/18 Baclofen [Lioresal] 20 mg PO HS 11/16/16 02/02/18 Levothyroxine Sodium 150 mcg PO DAILY 01/06/17 02/02/18 Ferrous Sulfate [Feosol] 325 mg PO BID 05/28/17 02/02/18 Multivitamins, Thera [Multivitamin 1 tab PO DAILY 05/28/17 02/02/18 (formulary)] Losartan [Cozaar] 50 mg PO DAILY 02/02/18 02/02/18 Previous Rx's Medication Instructions Recorded Omeprazole 40 mg PO DAILY #90 capsule. 01/12/17 Sulfamethox-Tmp 800-160Mg [Bactrim 1 tab PO Q12HR #20 tab 10/11/17 DS 800-160 mg] Albuterol Inhaler [Ventolin Hfa 1 - 2 puff INHALATION Q6HR PRN #2 04/25/19 Inhaler] puff predniSONE [Deltasone] 40 mg PO DAILY #8 tab 04/25/19 Cephalexin [Keflex] 500 mg PO QID #40 cap 03/05/20 Albuterol Inhaler [Ventolin Hfa 1 - 2 puff INHALATION Q6H PRN #1 07/13/22 Inhaler] kit Doxycycline [Vibramycin] 100 mg PO BID 5 Days #10 capsule 07/13/22 dexAMETHasone [Decadron] 10 mg PO ONCE #2.5 tab 07/13/22 Allergies Allergy/AdvReac Type Severity Reaction Status Date / Time amoxicillin Allergy Rash/Hives Verified 07/13/22 01:10 erythromycin base Allergy Rash/Hives Verified 07/13/22 01:10 morphine Allergy Nausea & Verified 07/13/22 01:10 Vomiting Morpholine Analogues Allergy Nausea & Verified 07/13/22 01:10 Vomiting Penicillins Allergy Rash/Hives Verified 07/13/22 01:10 Review of Systems ROS Statement: Those systems with pertinent positive or pertinent negative responses have been documented in the HPI. ROS Other: All systems not noted in ROS Statement are negative. Past Medical History Past Medical History: Hypertension, Osteoarthritis (OA), Thyroid Disorder Additional Past Medical History / Comment(s): varicose veins, RLS., low iron., incisional hernia., occasional left hip pain. History of Any Multi-Drug Resistant Organisms: None Reported Past Surgical History: Bariatric Surgery, Hernia Repair, Hysterectomy, Joint Replacement, Orthopedic Surgery, Tonsillectomy Additional Past Surgical History / Comment(s): sinus surgery, bone spur removed from left foot, bariatric sleeve gastrectomy 01-11-17, total left hip, anterior approace 06/13. right foot surgery hammer toe repair 01-11 Past Anesthesia/Blood Transfusion Reactions: No Reported Reaction Past Psychological History: No Psychological Hx Reported Smoking Status: Never smoker Past Alcohol Use History: None Reported Past Drug Use History: None Reported - Past Family History Mother Family Medical History: Pulmonary Embolus Father Family Medical History: Cancer Additional Family Medical History / Comment(s): pancreatic cancer Sister(s) Family Medical History: Cancer Additional Family Medical History / Comment(s): colon cancer General Exam Limitations: no limitations General appearance: alert, in no apparent distress, obese Head exam: Present: atraumatic, normocephalic, normal inspection Eye exam: Present: normal appearance, PERRL Pupils: Present: normal accommodation ENT exam: Present: normal exam, normal oropharynx, mucous membranes moist Neck exam: Present: normal inspection, full ROM Respiratory exam: Present: decreased breath sounds (Slightly decreased breath sounds bilaterally). Absent: wheezes, rhonchi Cardiovascular Exam: Present: regular rate, normal rhythm, normal heart sounds GI/Abdominal exam: Present: soft, normal bowel sounds Extremities exam: Present: normal inspection, full ROM Back exam: Present: normal inspection, full ROM Neurological exam: Present: alert, oriented X3, CN II-XII intact Psychiatric exam: Present: normal affect, normal mood Skin exam: Present: warm, dry Course Vital Signs 07/13/22 07/13/22 07/13/22 01:10 01:20 01:50 Temperature 99.6 F Pulse Rate 101 H 92 Respiratory 18 22 Rate Blood Pressure 126/77 O2 Sat by Pulse 94 L Oximetry 07/13/22 07/13/22 02:15 02:28 Temperature Pulse Rate 80 108 H Respiratory 20 Rate Blood Pressure 180/78 O2 Sat by Pulse 99 Oximetry Medical Decision Making - Medical Decision Making Was pt. sent in by a medical professional or institution (, PA, DIRECTOR OF EXHIBITS, urgent care, hospital, or [facility]...) When possible be specific @ -No Did you speak to anyone other than the patient for history (EMS, parent, family, police, friend...)? What history was obtained from this source @ -No Did you review nursing and triage notes (agree or disagree)? Why? @ -I reviewed and agree with nursing and triage notes Were old charts reviewed (outside hosp., previous admission, EMS record, old EKG, old radiological studies, urgent care reports/EKG's, [facility] records)? Report findings @ -No old charts were reviewed Differential Diagnosis (chest pain, altered mental status, abdominal pain women, abdominal pain men, vaginal bleeding, weakness, fever, dyspnea, syncope, headache, dizziness, GI bleed, back pain, seizure, CVA, palpatations, mental health)? @ -URI, acute sinusitis, asthma exacerbation EKG interpreted by me (3pts min.). @ -None X-rays interpreted by me (1pt min.). @ -None done CT interpreted by me (1pt min.). @ -None done U/S interpreted by me (1pt. min.). @ -None done What testing was considered but not performed or refused? (CT, X-rays, U/S, labs)? Why? @ -A chest x-ray was considered however due to the patient having clear breath sounds and no cough or congestion on exam noted, chest x-ray was agreed to not be performed at this time. What meds were considered but not given or refused? Why? @ -None Did you discuss the management of the patient with other professionals (sher clark i.e. , PA, DIRECTOR OF EXHIBITS, lab, RT, psych nurse, social science research assistant, white lead filterer, teacher, financial aid officer, family independence case manager)? Give summary @ -No Was smoking cessation discussed for >3mins.? @ -No Was critical care preformed (if so, how long)? @ -No Were there social determinants of health that impacted care today? How? (Homelessness, low income, unemployed, alcoholism, drug addiction, transportation, low edu. Level, literacy, decrease access to med. care, senior care, rehab)? @ -No Was there de-escalation of care discussed even if they declined (Discuss DNR or withdrawal of care, Hospice)? DNR status @ -No What co-morbidities impacted this encounter? (DM, HTN, Smoking, COPD, CAD, Cancer, CVA, ARF, Chemo, Hep., AIDS, mental health diagnosis, sleep apnea, morbid obesity)? @ -Hypertension, hypothyroidism, previous ALLERGY-induced asthma Was patient admitted / discharged? Hospital course, mention meds given and route, prescriptions, significant lab abnormalities, going to OR and other pertinent info. @ -The patient was seen and evaluated in the emergency department. Physical exam, the patient was resting in bed without any acute distress. Vital signs ad mission were stable. The patient did have any wheezing on exam however had mildly decreased breath sounds bilaterally. The patient was given albuterol and ipratropium as well as Decadron and on reevaluation stated that her symptoms had improved. The patient stated that because it was similar to her previous episode of ALLERGY-induced asthma, she did not feel that she needed a chest x- ray and I did agree with this. The patient was deemed stable for discharge after having improvement of her symptoms after the breathing treatment. The patient was given a prescription for a second dose of Decadron to be taken at home as well as an albuterol inhaler and a Z-Remi for her acute sinusitis. The patient was advised to continue to monitor her symptoms and to report back to the emergency department if they became acutely worse. The patient was agreeable to this and all of her questions were answered. The patient was discharged home in stable condition. Undiagnosed new problem with uncertain prognosis? @ -No Drug Therapy requiring intensive monitoring for toxicity (Heparin, Nitro, Insulin, Cardizem)? @ -No Were any procedures done? @ -No Diagnosis/symptom? @ -Asthma exacerbation Acute, or Chronic, or Acute on Chronic? @ -Acute Uncomplicated (without systemic symptoms) or Complicated (systemic symptoms)? @ -Uncomplicated Side effects of treatment? @ -No Exacerbation, Progression, or Severe Exacerbation? @ -Mild exacerbation Poses a threat to life or bodily function? How? (Chest pain, USA, AR, pneumonia, PE, COPD, DKA, ARF, appy, cholecystitis, CVA, Diverticulitis, Homicidal, Suicidal, threat to staff... and all critical care pts) @ -No Diagnosis/symptom? @ -Sinusitis Acute, or Chronic, or Acute on Chronic? @ -Acute Uncomplicated (without systemic symptoms) or Complicated (systemic symptoms)? @ -Uncomplicated Side effects of treatment? @ -none Exacerbation, Progression, or Severe Exacerbation] @ -no Poses a threat to life or bodily function? @ -no Disposition Clinical Impression: Asthma exacerbation, Sinusitis Disposition: HOME SELF-CARE Condition: Stable Instructions (If sedation given, give patient instructions): Asthma (DC), Sinusitis (ED) Prescriptions: dexAMETHasone [Decadron] 10 mg PO ONCE #2.5 tab Albuterol Inhaler [Ventolin Hfa Inhaler] 1 - 2 puff INHALATION Q6H PRN #1 kit PRN Reason: Shortness Of Breath Or Wheezing Doxycycline [Vibramycin] 100 mg PO BID 5 Days #10 capsule Is patient prescribed a controlled substance at d/c from ED?: No Referrals: Amber Walters PAC [Primary Care Provider] - 1-2 days Time of Disposition: 02:20
== END 2022-07-13 02:47 | disposition home or self-care (01) ==
LOC: EC 01:04
DX: J45.901 Unspecified asthma with (acute) exacerbation (principal); J32.9 Chronic sinusitis, unspecified; I10 Essential (primary) hypertension; M19.90 Unspecified osteoarthritis, unspecified site; E03.9 Hypothyroidism, unspecified; Z79.52 Long term (current) use of systemic steroids; Z79.890 Hormone replacement therapy; Z79.899 Other long term (current) drug therapy; Z88.0 Allergy status to penicillin; Z88.1 Allergy status to other antibiotic agents; Z88.5 Allergy status to narcotic agent
CPT/HCPCS: 94640; 99283; J8540

== ENCOUNTER → 2022-08-14 | Outpatient (CLI) | payer BC ==
[2022-08-14 10:48] LABS: HCT 39.8 % (37.2-46.3); HGB 12.5 g/dL (12.0-15.0); MCHC 31.4 g/dL (32.0-37.0); MCV 92.3 fL (80.0-97.0); Mean Platelet Volume 9.4 fL (9.5-12.2); NRBC Per 100 WBC 0 /100 WBCS (0.0-0.0); Platelet Count 238 X 10*3/uL (140-440); RBC 4.31 X 10*6/uL (4.10-5.20); RDW 14.7 % (11.5-14.5); WBC 8.25 X 10*3/uL (4.50-10.00)
[2022-08-14 11:14] LABS: ALT 16 U/L (8-44); AST 17 U/L (13-35); African American GFR (CKD) 93.5 (60.0-200.0); Albumin 4.2 g/dL (3.8-4.9); Albumin/Globulin Ratio 1.31 (1.60-3.17); Alkaline Phosphatase 81 U/L (41-126); Calcium 10.7 mg/dL (8.7-10.3); Carbon Dioxide 23.4 mmol/L (20.0-27.5); Chloride 102 mmol/L (96-109); Chol/HDL Ratio 3.98 Ratio; Globulin 3.2 g/dL (1.6-3.3); Glucose 164 mg/dL (70-110); LDL Cholesterol,Calculated 131.8 mg/dL (0.0-131.0); Non-African American GFR(CKD) 80.7 (60.0-200.0); Sodium 139 mmol/L (135-145); Total Protein 7.4 g/dL (6.2-8.2)
== END | disposition home or self-care (01) ==
LOC: LABWHC1 07:06
PROVIDERS: ATTEND Physician Assistant Medical
DX: E03.9 Hypothyroidism, unspecified (principal); E66.01 Morbid (severe) obesity due to excess calories; R73.01 Impaired fasting glucose; I10 Essential (primary) hypertension
CPT/HCPCS: 36415; 80053; 80061; 83036; 84439; 84443; 84481; 85027

== ENCOUNTER → 2022-12-18 | Outpatient (CLI) | payer BC ==
[2022-12-19 01:37] LABS: Chol/HDL Ratio 4.15 Ratio; LDL Cholesterol,Calculated 127.9 mg/dL (0.0-131.0)
[2022-12-19 01:56] LABS: HCT 45.4 % (37.2-46.3); HGB 14.1 d/dL (12.0-15.0); MCH 29.4 pg (27.0-32.0); MCHC 31.1 d/dL (32.0-37.0); MCV 94.8 FL (80.0-97.0); Mean Platelet Volume 10.1 FL (9.5-12.2); NRBC Per 100 WBC 0 X 10*3/uL (0.00-0.01); Platelet Count 290 X 10*3/uL (140-440); RBC 4.79 X 10*6/uL (4.10-5.20); RDW 14.5 % (11.5-14.5); WBC 7.87 X 10*3/uL (4.50-10.00)
[2022-12-19 02:54] LABS: ALT 18 U/L (8-44); AST 18 U/L (13-35); Albumin 4.4 d/dL (3.8-4.9); Albumin/Globulin Ratio 1.42 Ratio (1.60-3.17); Alkaline Phosphatase 84 U/L (41-126); BUN/Creat Ratio 25.62 Ratio (12.00-20.00); Blood Urea Nitrogen 20.5 mg/dL (9.0-27.0); Carbon Dioxide 27.9 mmol/L (21.6-31.8); Chloride 102 mmol/L (96-109); Globulin 3.1 d/dL (1.6-3.3); Glucose 121 mg/dL (70-110); Potassium 5.2 mmol/L (3.5-5.5); Sodium 143 mmol/L (135-145); Total Bilirubin 0.6 mg/dL (0.3-1.2); Total Protein 7.5 d/dL (6.2-8.2)
== END | disposition home or self-care (01) ==
LOC: LABWHC1 09:23
PROVIDERS: ATTEND Family Medicine
DX: E03.9 Hypothyroidism, unspecified (principal); E11.9 Type 2 diabetes mellitus without complications
CPT/HCPCS: 36415; 80053; 80061; 83036; 84436; 84443; 84480; 85027

== ENCOUNTER → 2022-12-21 | Outpatient (CLI) | payer BC ==
--- NOTE | 2022-12-22 10:45 | MM ---
Reason for Exam: Screening (asymptomatic). Last mammogram was performed 1 year(s) and 3 month(s) ago. Patient History: Menarche at age 12. Patient has no children. Left ovary removed at age 47. Right ovary removed at age 47. Hysterectomy at age 47. Postmenopausal. Hormonal Contraceptives for 3 years, 7 months, from age 38 until age 41. Core Biopsy on the Left side. 09/05/2002, Benign Excisional Biopsy on the right side. 05/20/2001, Benign Stereotactic Core Biopsy on the left side. Risk Values: Viktoria 5 year model risk: 2.1%. NCI Lifetime model risk: 11.2%. Prior Study Comparison: 01/02/2008 Bilateral Screening Mammogram, [facility]. 01/30/2008 Right Diagnostic Mammogram, [facility]. 01/30/2008 Right Diagnostic Ultrasound, [facility]. 09/11/2021 Bilateral MG 3D screening mammo w/cad, [facility]. Tissue Density: The breast tissue is almost entirely fat. Findings: Analyzed By CAD. There is no suspicious group of microcalcifications or new suspicious mass in either breast. Overall Assessment: Negative, BI-RAD 1 Management: Screening Mammogram of both breasts in [address] [facility] will attempt to contact patient to return for supplemental views and ultrasound if indicated. Patient should continue monthly self-breast exams. A clinical breast exam by your physician is recommended on an annual basis. This exam should not preclude additional follow-up of suspicious palpable abnormalities. Note on Viktoria scores and lifetime risk: 1. A Viktoria score greater than 3% is considered moderate risk. If this is the case, consider specialist referral to assess eligibility for a risk reducing agent. 2. If overall lifetime risk for the development of breast cancer is 20% or higher, the patient may qualify for future screening with alternating mammogram and breast MRI. Electronically signed and approved by: Dirk Mcmahan DO
== END | disposition home or self-care (01) ==
LOC: RADMAMWWP 08:41
PROVIDERS: ATTEND Family Medicine
DX: Z12.31 Encounter for screening mammogram for malignant neoplasm of breast (principal); Z78.0 Asymptomatic menopausal state
CPT/HCPCS: 77063; 77067

== ENCOUNTER → 2023-03-20 | Outpatient (CLI) | payer BC ==
[2023-03-20 12:30] LABS: HCT 43.3 % (37.2-46.3); HGB 13.4 g/dL (12.0-15.0); MCH 28.9 pg (27.0-32.0); MCHC 30.9 g/dL (32.0-37.0); MCV 93.5 FL (80.0-97.0); Mean Platelet Volume 9.9 FL (9.5-12.2); NRBC Per 100 WBC 0 X 10*3/uL (0.00-0.01); Platelet Count 280 X 10*3/uL (140-440); RBC 4.63 X 10*6/uL (4.10-5.20); RDW 14.1 % (11.5-14.5); WBC 7.93 X 10*3/uL (4.50-10.00)
[2023-03-20 12:58] LABS: ALT 18 U/L (8-44); AST 12 U/L (13-35); Albumin 4.1 g/dL (3.8-4.9); Albumin/Globulin Ratio 1.32 Ratio (1.60-3.17); Alkaline Phosphatase 84 U/L (41-126); Calcium 10.4 mg/dL (8.7-10.3); Carbon Dioxide 25.3 mmol/L (21.6-31.8); Chloride 104 mmol/L (96-109); Chol/HDL Ratio 3.56 Ratio; Globulin 3.1 g/dL (1.6-3.3); Glucose 137 mg/dL (70-110); LDL Cholesterol,Calculated 106.7 mg/dL (0.0-131.0); Potassium 4.7 mmol/L (3.5-5.5); Sodium 142 mmol/L (135-145); T4, Free (Free Thyroxine) 1.55 ng/dL (0.80-1.80); Total Bilirubin 0.5 mg/dL (0.3-1.2); Total Protein 7.2 g/dL (6.2-8.2); VLDL Calculation 19.76 mg/dL (5.00-40.00)
== END | disposition home or self-care (01) ==
LOC: LABWHC1 08:11
PROVIDERS: ATTEND Family Medicine
DX: E11.9 Type 2 diabetes mellitus without complications (principal); E83.52 Hypercalcemia; Z79.899 Other long term (current) drug therapy
CPT/HCPCS: 36415; 80053; 80061; 82306; 83036; 83970; 84436; 84439; 84443; 84480; 85027

== ENCOUNTER → 2023-06-25 | Outpatient (CLI) | payer BC ==
[2023-06-25 09:11] LABS: Ionized Calcium 5.4 mg/dL (4.5-5.3)
[2023-06-25 15:50] LABS: HCT 42.8 % (37.2-46.3); HGB 13.6 g/dL (12.0-15.0); MCH 29.6 pg (27.0-32.0); MCHC 31.8 g/dL (32.0-37.0); Mean Platelet Volume 9.4 FL (9.5-12.2); NRBC Per 100 WBC 0 X 10*3/uL (0.00-0.01); Platelet Count 300 X 10*3/uL (140-440); RDW 14.2 % (11.5-14.5); WBC 8.99 X 10*3/uL (4.50-10.00)
[2023-06-25 16:38] LABS: ALT 20 U/L (8-44); AST 16 U/L (13-35); Albumin 4.3 g/dL (3.8-4.9); Alkaline Phosphatase 91 U/L (41-126); BUN/Creat Ratio 33.43 Ratio (12.00-20.00); Blood Urea Nitrogen 23.4 mg/dL (9.0-27.0); Calcium 10.5 mg/dL (8.7-10.3); Carbon Dioxide 28.5 mmol/L (21.6-31.8); Chloride 101 mmol/L (96-109); Chol/HDL Ratio 3.87 Ratio; Globulin 3.3 g/dL (1.6-3.3); Glucose 139 mg/dL (70-110); LDL Cholesterol,Calculated 125.5 mg/dL (0.0-131.0); Potassium 4.3 mmol/L (3.5-5.5); Sodium 142 mmol/L (135-145); T4, Free (Free Thyroxine) 1.62 ng/dL (0.80-1.80); Total Bilirubin 0.5 mg/dL (0.3-1.2); Total Protein 7.6 g/dL (6.2-8.2); VLDL Calculation 16.22 mg/dL (5.00-40.00)
== END | disposition home or self-care (01) ==
LOC: LABWHC1 06:54
PROVIDERS: ATTEND Physician Assistant Medical
DX: I10 Essential (primary) hypertension (principal); E11.9 Type 2 diabetes mellitus without complications; E03.9 Hypothyroidism, unspecified; E83.52 Hypercalcemia
CPT/HCPCS: 36415; 80053; 80061; 82330; 83036; 83970; 84439; 84443; 84481; 85027

== ENCOUNTER → 2023-07-14 | Outpatient (CLI) | payer BC ==
--- NOTE | 2023-07-14 07:59 | BD ---
EXAMINATION TYPE: Axial Bone Density DATE OF EXAM: 07/14/2023 CLINICAL HISTORY: 57 years old Female. ICD-10 CODE: N95.1 MENOPAUSAL AND FEMALE CLIMACTERIC STATES Height: 68 Weight: 375 FRAX RISK QUESTIONS: History of Fracture in Adulthood: yes Secondary Osteoporosis: no RISK FACTORS HISTORY OF: Surgery to Hip(left): yes When: MEDICATIONS: Thyroid Medications: yes Which medication: Levothyroxine How Lon+ years Osteoporosis Medications: no EXAM MEASUREMENTS: Bone mineral densitometry was performed using the [employer] System. Bone mineral density as measured about the Lumbar spine is: ----- L1-L4(G/cm2): 0.978 T Score Values are as follows: ----- L1: -1.5 ----- L2: -1.6 ----- L3: -1.4 ----- L4: -2.3 ----- L1-L4: -1.7 Z Score Values are as follows: ----- L1: -1.5 ----- L2: -1.6 ----- L3: -1.3 ----- L4: -2.3 ----- L1-L4: -1.7 Bone mineral density has: Increased 2.7% since study of: 12/21/2019 Bone mineral density about the R hip (g/cm2): 0.868 T Score values are as follows: -----R Neck: -2.0 -----R Total: -1.1 Z Score values are as follows: -----R Neck: -1.6 -----R Total: -1.0 Bone mineral density has: Increased 4.2% since study of: 12/21/2019 FRAX%s: The graph provided illustrates a 12.7% chance for a major osteoporotic fx and a 1.5% chance f or the hips probability for fx in 10 years time. IMPRESSION: Osteopenia (T Score between -2.5 and -1). There is slightly increased risk of fracture and the patient may be considered for treatment. Re-Screen 2-5 years. NOTE: T-SCORE=SD OF THE YOUNG ADULT MEAN.
== END | disposition home or self-care (01) ==
LOC: RADBDWWP 07:06
PROVIDERS: ATTEND Family Medicine
DX: M85.89 Other specified disorders of bone density and structure, multiple sites (principal); Z78.0 Asymptomatic menopausal state
CPT/HCPCS: 77080

== ENCOUNTER → 2023-10-23 | Outpatient (CLI) | payer BC ==
[2023-10-23 12:38] LABS: HCT 41.8 % (37.2-46.3); HGB 13.2 g/dL (12.0-15.0); MCH 29.7 pg (27.0-32.0); MCHC 31.6 g/dL (32.0-37.0); MCV 93.9 FL (80.0-97.0); Mean Platelet Volume 9.4 FL (9.5-12.2); NRBC Per 100 WBC 0 X 10*3/uL (0.00-0.01); Platelet Count 293 X 10*3/uL (140-440); RBC 4.45 X 10*6/uL (4.10-5.20); RDW 14.2 % (11.5-14.5); WBC 8.77 X 10*3/uL (4.50-10.00)
[2023-10-23 12:58] LABS: ALT 17 U/L (8-44); AST 18 U/L (13-35); Albumin 4.1 g/dL (3.8-4.9); Albumin/Globulin Ratio 1.28 Ratio (1.60-3.17); Alkaline Phosphatase 88 U/L (41-126); BUN/Creat Ratio 29.38 Ratio (12.00-20.00); Blood Urea Nitrogen 23.5 mg/dL (9.0-27.0); Calcium 9.9 mg/dL (8.7-10.3); Carbon Dioxide 26.3 mmol/L (21.6-31.8); Chloride 104 mmol/L (96-109); Chol/HDL Ratio 3.78 Ratio; Globulin 3.2 g/dL (1.6-3.3); Glucose 135 mg/dL (70-110); LDL Cholesterol,Calculated 119.7 mg/dL (0.0-131.0); Potassium 4.8 mmol/L (3.5-5.5); Sodium 142 mmol/L (135-145); T4, Free (Free Thyroxine) 1.45 ng/dL (0.80-1.80); Total Bilirubin 0.6 mg/dL (0.3-1.2); Total Protein 7.3 g/dL (6.2-8.2); VLDL Calculation 16.28 mg/dL (5.00-40.00)
== END | disposition home or self-care (01) ==
LOC: LABWHC1 08:01
PROVIDERS: ATTEND Family Medicine
DX: E11.9 Type 2 diabetes mellitus without complications (principal); E03.9 Hypothyroidism, unspecified; I10 Essential (primary) hypertension
CPT/HCPCS: 36415; 80053; 80061; 83036; 84439; 84443; 84481; 85027

== ENCOUNTER → 2024-02-12 | Outpatient (CLI) | payer BC ==
[2024-02-12 13:16] LABS: HCT 40.9 % (37.2-46.3); HGB 12.9 g/dL (12.0-15.0); MCH 29.1 pg (27.0-32.0); MCHC 31.5 g/dL (32.0-37.0); MCV 92.3 FL (80.0-97.0); Mean Platelet Volume 9.6 FL (9.5-12.2); NRBC Per 100 WBC 0 X 10*3/uL (0.00-0.01); Platelet Count 274 X 10*3/uL (140-440); RBC 4.43 X 10*6/uL (4.10-5.20); RDW 14.3 % (11.5-14.5); WBC 7.61 X 10*3/uL (4.50-10.00)
[2024-02-12 13:53] LABS: % Iron Saturation 23.91 (12.00-45.00); ALT 15 U/L (8-44); AST 20 U/L (13-35); Albumin/Globulin Ratio 1.29 Ratio (1.60-3.17); Alkaline Phosphatase 89 U/L (41-126); BUN/Creat Ratio 26.75 Ratio (12.00-20.00); Blood Urea Nitrogen 21.4 mg/dL (9.0-27.0); Calcium 9.9 mg/dL (8.7-10.3); Carbon Dioxide 25.7 mmol/L (21.6-31.8); Chloride 101 mmol/L (96-109); Chol/HDL Ratio 3.66 Ratio; Globulin 3.1 g/dL (1.6-3.3); Glucose 132 mg/dL (70-110); Iron 77 UG/DL (50-170); LDL Cholesterol,Calculated 108.5 mg/dL (0.0-131.0); Potassium 4.1 mmol/L (3.5-5.5); Sodium 139 mmol/L (135-145); T4, Free (Free Thyroxine) 1.58 ng/dL (0.80-1.80); Total Bilirubin 0.6 mg/dL (0.3-1.2); Total Iron Binding Capacity 322 UG/DL (228-460); Total Protein 7.1 g/dL (6.2-8.2)
== END | disposition home or self-care (01) ==
LOC: LABWHC1 08:38
PROVIDERS: ATTEND Physician Assistant Medical
CPT/HCPCS: 36415; 80053; 80061; 82306; 82728; 83036; 83540; 83550; 83970; 84439; 84443; 84481; 85027

== ENCOUNTER → 2024-02-16 | Outpatient (CLI) | payer BC ==
--- NOTE | 2024-02-17 17:29 | MM ---
Reason for Exam: Screening (asymptomatic). Last mammogram was performed 1 year(s) and 2 month(s) ago. Patient History: Menarche at age 12. Patient has no children. Left ovary removed at age 47. Right ovary removed at age 47. Hysterectomy at age 47. Postmenopausal. Hormonal Contraceptives for 3 years, 7 months, from age 38 until age 41. Core Biopsy on the Left side. 09/05/2002, Benign Excisional Biopsy on the right side. 05/20/2001, Benign Stereotactic Core Biopsy on the left side. Risk Values: Viktoria 5 year model risk: 2.2%. NCI Lifetime model risk: 10.9%. Prior Study Comparison: 01/30/2008 Right Diagnostic Mammogram, [facility]. 09/11/2021 Bilateral MG 3D screening mammo w/cad, [facility]. 12/21/2022 Bilateral MG 3D screening mammo w/cad, [facility]. Tissue Density: There are scattered areas of fibroglandular density. Findings: Analyzed By CAD. Chronic bilateral nodularity. Microclip left breast from prior biopsy. There is no suspicious group of microcalcifications or new suspicious mass in either breast. Overall Assessment: Benign, BI-RAD 2 Management: Screening Mammogram of both breasts in 1 year. . Patient should continue monthly self-breast exams. A clinical breast exam by your physician is recommended on an annual basis. This exam should not preclude additional follow-up of suspicious palpable abnormalities. Note on Viktoria scores and lifetime risk: 1. A Viktoria score greater than 3% is considered moderate risk. If this is the case, consider specialist referral to assess eligibility for a risk reducing agent. 2. If overall lifetime risk for the development of breast cancer is 20% or higher, the patient may qualify for future screening with alternating mammogram and breast MRI. [facility], , 02/17/2024 5:27 PM. Electronically signed and approved by: Xi Salcido M.D. Radiologist
== END | disposition home or self-care (01) ==
LOC: RADMAMWWP 06:58
PROVIDERS: ATTEND Family Medicine
CPT/HCPCS: 77063; 77067

== ENCOUNTER → 2024-03-09 | Outpatient (CLI) | payer BC | END | disposition home or self-care (01) | LOC: LABWHC1 15:40 | PROVIDERS: ATTEND Physician Assistant Medical | DX: E11.9 Type 2 diabetes mellitus without complications (principal); E55.9 Vitamin D deficiency, unspecified; E03.9 Hypothyroidism, unspecified | CPT/HCPCS: 36415; 83970 ==

== ENCOUNTER → 2024-05-18 | Outpatient (CLI) | payer BC ==
[2024-05-18 07:57] LABS: Ionized Calcium 5.3 mg/dL (4.5-5.3)
[2024-05-18 10:35] LABS: HCT 41.6 % (37.2-46.3); HGB 13.2 g/dL (12.0-15.0); MCHC 31.7 g/dL (32.0-37.0); MCV 91.4 FL (80.0-97.0); Mean Platelet Volume 9.3 FL (9.5-12.2); NRBC Per 100 WBC 0 X 10*3/uL (0.00-0.01); Platelet Count 304 X 10*3/uL (140-440); RBC 4.55 X 10*6/uL (4.10-5.20); WBC 8.28 X 10*3/uL (4.50-10.00)
[2024-05-18 16:10] LABS: BUN/Creat Ratio 31.62 Ratio (12.00-20.00); Blood Urea Nitrogen 25.3 mg/dL (9.0-27.0); Chloride 103 mmol/L (96-109); Glucose 131 mg/dL (70-110); LDL Cholesterol,Calculated 120.7 mg/dL (0.0-131.0); Potassium 4.6 mmol/L (3.5-5.5); Sodium 142 mmol/L (135-145); VLDL Calculation 19.54 mg/dL (5.00-40.00)
[2024-05-18 16:11] LABS: ALT 14 U/L (8-44); AST 16 U/L (13-35); Albumin 4.1 g/dL (3.8-4.9); Albumin/Globulin Ratio 1.28 Ratio (1.60-3.17); Alkaline Phosphatase 90 U/L (41-126); Calcium 10.2 mg/dL (8.7-10.3); Carbon Dioxide 24.9 mmol/L (21.6-31.8); Globulin 3.2 g/dL (1.6-3.3); Total Bilirubin 0.7 mg/dL (0.3-1.2); Total Protein 7.3 g/dL (6.2-8.2)
== END | disposition home or self-care (01) ==
LOC: LABWHC1 07:01
PROVIDERS: ATTEND Family Medicine
DX: E11.9 Type 2 diabetes mellitus without complications (principal); E03.9 Hypothyroidism, unspecified; E83.52 Hypercalcemia
CPT/HCPCS: 36415; 80053; 80061; 82330; 82728; 83036; 83970; 84439; 84443; 84481; 85027

== ENCOUNTER → 2024-08-24 | Outpatient (CLI) | payer BC ==
[2024-08-24 15:44] LABS: HCT 43.6 % (37.2-46.3); MCH 28.3 pg (27.0-32.0); MCHC 29.8 g/dL (32.0-37.0); Mean Platelet Volume 9.3 FL (9.5-12.2); NRBC Per 100 WBC 0 X 10*3/uL (0.00-0.01); Platelet Count 312 X 10*3/uL (140-440); RBC 4.59 X 10*6/uL (4.10-5.20); RDW 14.2 % (11.5-14.5); WBC 8.35 X 10*3/uL (4.50-10.00)
[2024-08-24 16:14] LABS: % Iron Saturation 16.91 (12.00-45.00); ALT 14 U/L (8-44); AST 16 U/L (13-35); Albumin 3.9 g/dL (3.8-4.9); Albumin/Globulin Ratio 1.18 Ratio (1.60-3.17); Alkaline Phosphatase 89 U/L (41-126); BUN/Creat Ratio 27.38 Ratio (12.00-20.00); Blood Urea Nitrogen 21.9 mg/dL (9.0-27.0); Carbon Dioxide 25.4 mmol/L (21.6-31.8); Chloride 104 mmol/L (96-109); Globulin 3.3 g/dL (1.6-3.3); Glucose 147 mg/dL (70-110); Iron 57 UG/DL (50-170); Potassium 5.4 mmol/L (3.5-5.5); Sodium 141 mmol/L (135-145); Total Bilirubin 0.4 mg/dL (0.3-1.2); Total Iron Binding Capacity 337 UG/DL (228-460); Total Protein 7.2 g/dL (6.2-8.2)
== END | disposition home or self-care (01) ==
LOC: LABWHC1 06:58
PROVIDERS: ATTEND Physician Assistant Medical
DX: E11.9 Type 2 diabetes mellitus without complications (principal)
CPT/HCPCS: 36415; 80053; 82728; 83036; 83540; 83550; 84439; 84443; 84466; 84480; 85027

== ENCOUNTER → 2024-11-24 | Outpatient (CLI) | payer BC ==
[2024-11-24 11:16] LABS: HCT 41.5 % (37.2-46.3); HGB 13.0 g/dL (12.0-15.0); MCH 28.1 pg (27.0-32.0); MCHC 31.3 g/dL (32.0-37.0); MCV 89.6 FL (80.0-97.0); NRBC Per 100 WBC 0 X 10*3/uL (0.00-0.01); Platelet Count 290 X 10*3/uL (140-440); RBC 4.63 X 10*6/uL (4.10-5.20); RDW 13.9 % (11.5-14.5); WBC 7.08 X 10*3/uL (4.50-10.00)
[2024-11-24 11:26] LABS: ALT 12 U/L (8-44); AST 16 U/L (13-35); Albumin 4.1 g/dL (3.8-4.9); Albumin/Globulin Ratio 1.37 Ratio (1.60-3.17); Alkaline Phosphatase 92 U/L (41-126); Anion Gap 12.00 mmol/L (4.00-12.00); BUN/Creat Ratio 29.62 Ratio (12.00-20.00); Blood Urea Nitrogen 23.7 mg/dL (9.0-27.0); Calcium 9.9 mg/dL (8.7-10.3); Carbon Dioxide 26.0 mmol/L (21.6-31.8); Chloride 99 mmol/L (96-109); Cholesterol 185.00 mg/dL (0.00-200.00); Globulin 3.0 g/dL (1.6-3.3); Glucose 137 mg/dL (70-110); HDL Cholesterol 42.10 mg/dL (40.00-60.00); LDL Cholesterol,Calculated 119.9 mg/dL (0.0-131.0); Potassium 4.6 mmol/L (3.5-5.5); Sodium 137 mmol/L (135-145); Total Protein 7.1 g/dL (6.2-8.2); Triglycerides 115.00 mg/dL (0.00-149.00); VLDL Calculation 23.00 mg/dL (5.00-40.00)
== END | disposition home or self-care (01) ==
LOC: LABWHC1 07:08
PROVIDERS: ATTEND Physician Assistant Medical
DX: I10 Essential (primary) hypertension (principal); E11.9 Type 2 diabetes mellitus without complications; E03.9 Hypothyroidism, unspecified
CPT/HCPCS: 36415; 80053; 80061; 83036; 84436; 84443; 84480; 85027